=== PATIENT | female | born 1935 | race Caucasian/White ===

== ENCOUNTER 2023-06-22 16:07 | Inpatient (IN) ==
--- NOTE | 2023-06-22 16:44 | Emergency Department Note ---
Impression & Plan Acute alteration in mental status, Urinary tract infection, Fever ED Provider Note NAME: BETY PITTS AGE: 87 SEX: F : 1935 ARRIVES VIA: Walk-In INFORMANT: Patient, the patient's daughters ED PROVIDER(S): Valeriy Guy DO CHIEF COMPLAINT: Stroke alert HPI: The patient is an 87-year-old female who presented to the emergency department through triage with her daughters for an evaluation of strokelike symptoms. The patient was noted to have confusion. In triage she was leaning to the left and had a reported left-sided facial droop. She was made a stroke alert prior to my evaluation. The patient states she has no headaches. She did have an episode of emesis this morning. The family members noticed that she would shake and appeared to be shaking uncontrollably. There is no reported lower extremity swelling or pain. The patient's had no recent falls. The patient does take Coumadin. ROS: See above HPI for pertinent positives & negatives. A total of 10 systems reviewed and were otherwise negative. PAST MEDICAL HISTORY: See Below PAST SURGICAL HISTORY: See Below FAMILY HISTORY: See Below SOCIAL HISTORY: See Below HOME MEDICATIONS: See Below ALLERGIES: See Below VITALS: See Below PHYSICAL EXAMINATION: GENERAL: The patient is frail and somewhat anxious appearing. EYES: The conjunctivae are clear. The pupils are round and reactive. EARS, NOSE, MOUTH AND THROAT: The nose is without any evidence of any deformity. Mucous membranes are dry. NECK: The neck is nontender and supple. RESPIRATORY: Normal respiratory effort is noted there is no evidence of wheezing rhonchi or rales CARDIOVASCULAR: Irregular and tachycardic heart sounds were noted to auscultation. Systolic murmur was suggested. GASTROINTESTINAL: The abdomen is soft. Abdomen is nontender. MUSCULOSKELETAL/EXTREMITIES: There is no evidence of gross deformity full range of motion is noted in the hips and shoulders. SKIN: The skin is warm and dry. There is no significant pedal edema. NEUROLOGIC: Patient is awake and oriented to person place but not time. She does recognize her daughters. There is no facial droop. Speech was soft. There is no drift in the upper extremities. MEDICAL DECISION MAKING: The patient is an 87-year-old female who presented to the emergency department for an evaluation of altered mental status. The patient was made a stroke alert in triage. She did go through the stroke protocol. When she was brought back to the room she was found to be confused and appeared to be having rigors. The patient was found to be febrile. Further work-up was undertaken to determine the source of the patient's altered mental status and fever. Ultimately CT angiography of the brain and CT did not show any acute process. The patient does take Coumadin so I do not feel she would be a candidate for TNK. She has no large vessel occlusion. Urinalysis does appear to be consistent with a possible infection. She was treated with IV fluids and IV antibiotics. She was reevaluated multiple times. I discussed her condition with the on-call [facility] hospitalist. They have agreed to evaluate the patient in the emergency department for further management and disposition. Triage Nursing notes reviewed. Prior medical records reviewed Vital Signs: reviewed and remarkable for fever. Differential diagnosis: Infection, dehydration, metabolic abnormality, hypo/hyperglycemia, electrolyte disturbance, anemia, hypoxia, cardiac sources, intracerebral event, toxicologic, neurologic, as well as other pathologies. ER treatment provided: See below Diagnostics interpreted by me: ECG: EKG was obtained in the emergency department. My interpretation is atrial fibrillation with RVR at 138 bpm. No PVCs were noted. Left bundle branch block pattern was noted with nonspecific ST depressions throughout. This was compared to a tracing from April 20, 2018. The rate was increased otherwise no significant changes were noted. Cardiac Monitoring: An order was placed for continuous cardiac monitoring. The monitor shows a rate of 79 bpm with atrial fibrillation Laboratory studies: As stated above and show below. Imaging studies: See below. Radiographic imaging was reviewed by myself Consultation(s): I discussed this case with Dr. Stafford [facility] ED COURSE: Procedures: none Critical Care: I have personally spent greater than 45 minutes of critical care time in the direct management of this patient. This includes bedside care, interpretation of diagnostic studies, and testing, discussion with consultants, patient, and family members, and other required patient management activities. This 45 minutes is in excess of all separately billable procedures. Past Med/Surg History Medical History CAD (coronary artery disease) Cardiomyopathy Heart disease HOCM (hypertrophic obstructive cardiomyopathy) HTN (hypertension) Hyperlipidemia Implantable cardioverter-defibrillator (ICD) at end of battery life pt for ICD generator change; risks discussed; consents signed PAF (paroxysmal atrial fibrillation) Tricuspid regurgitation Family History Mother No problems noted. Social History Smoking Status: Former smoker Second Hand Exposure: No; Do You Dip or Chew Tobacco: No; Tobacco Cessation Education Requested by Patient: No Hx Alcohol Use: No Hx Substance Use: No Preferred Language: Czech Communication Ability: Effective Sr Account Executive Required: No Beliefs That Will Affect Care: None Current Living Situation: Alone Other Information That Helps Us Care for You: No Feels Safe at Home: Yes Safety Concerns: Feels Safe At This Time Assistive Devices: Glasses Allergies Allergies Allergy/AdvReac Type Severity Reaction Status Date / Time bee venom protein (honey bee) Allergy Intermediate Hives Verified 06/22/23 17:33 alendronate sodium AdvReac Intermediate Muscle Pain Verified 06/22/23 17:33 [From Fosamax] simvastatin AdvReac Intermediate Muscle Pain Verified 06/22/23 17:33 Home Meds Home Medications Medication Instructions Recorded Confirmed amiodarone 200 mg tablet 200 mg PO DAILY 05/02/20 06/22/23 levothyroxine 25 mcg capsule 25 mcg PO DAILYBB 05/02/20 06/22/23 omeprazole 20 mg capsule,delayed 20 mg PO DAILYBB 05/02/20 06/22/23 release betamethasone dipropionate 0.05 % 1 applic topical BID PRN 06/22/23 06/22/23 topical cream RASH/ITCHING cholecalciferol (vitamin D3) 25 1,000 unit PO QAM 06/22/23 06/22/23 mcg (1,000 unit) capsule (Vitamin D3) diltiazem HCl 120 mg capsule,24 120 mg PO DAILY 06/22/23 06/22/23 hr,extended release donepezil 5 mg tablet 5 mg PO QPM 06/22/23 06/22/23 furosemide 20 mg tablet 20 mg PO 3XWK 06/22/23 06/22/23 hydrocortisone 2.5 % topical cream 1 applic topical BID PRN RECTAL 06/22/23 06/22/23 IRRITATION loperamide 2 mg tablet (Imodium 1 mg PO DAILY PRN Diarrhea 06/22/23 06/22/23 A-D) metoprolol succinate 25 mg 25 mg PO DAILY 06/22/23 06/22/23 tablet,extended release 24 hr mirtazapine 15 mg tablet 15 mg PO HS 06/22/23 06/22/23 potassium chloride 10 mEq 10 meq PO DAILY 06/22/23 06/22/23 capsule,extended release warfarin 2 mg tablet See Rx Instructions .Route .COMPLEX 06/22/23 06/22/23 Results & Data (ED) Vital Signs Vital Signs - 24 hr 06/22/23 16:27 06/22/23 16:39 06/22/23 17:09 Temperature 36.5 C Temperature Source Oral Pulse Rate 111 H 115 H Pulse Rate [Apical] Pulse Rate from SpO2 Sensor Respiratory Rate 18 Blood Pressure 152/81 H Blood Pressure [Right Arm] Blood Pressure Mean 104 Blood Pressure Mean [Right Arm] Blood Pressure Position Sitting Pulse Oximetry 92 88 L Oxygen Delivery Method Room Air Room Air Oxygen Flow Rate 0 Sepsis Recent Fever Within 48 Hours No Sepsis New/Unexplained Change in Mental Status No Sepsis Action Taken by Nursing No Action Required Oxygen Flow Rate - Titration 2 Pulse Oximetry Post Tiitration 91 06/22/23 17:17 06/22/23 17:47 06/22/23 16:40 Temperature 38.4 C H Temperature Source Oral Pulse Rate 119 H Pulse Rate [Apical] Pulse Rate from SpO2 Sensor 125 H Respiratory Rate Blood Pressure Blood Pressure [Right Arm] Blood Pressure Mean Blood Pressure Mean [Right Arm] Blood Pressure Position Pulse Oximetry 93 91 Oxygen Delivery Method Room Air Oxygen Flow Rate Sepsis Recent Fever Within 48 Hours Sepsis New/Unexplained Change in Mental Status Sepsis Action Taken by Nursing Oxygen Flow Rate - Titration Pulse Oximetry Post Tiitration 06/22/23 16:46 06/22/23 16:46 06/22/23 17:04 Temperature Temperature Source Pulse Rate 120 H Pulse Rate [Apical] Pulse Rate from SpO2 Sensor 123 H Respiratory Rate Blood Pressure 159/96 H 170/80 H Blood Pressure [Right Arm] Blood Pressure Mean 117 110 Blood Pressure Mean [Right Arm] Blood Pressure Position Pulse Oximetry 92 Oxygen Delivery Method Oxygen Flow Rate Sepsis Recent Fever Within 48 Hours Sepsis New/Unexplained Change in Mental Status Sepsis Action Taken by Nursing Oxygen Flow Rate - Titration Pulse Oximetry Post Tiitration 06/22/23 17:04 06/22/23 17:10 06/22/23 17:16 Temperature Temperature Source Pulse Rate 118 H 120 H Pulse Rate [Apical] Pulse Rate from SpO2 Sensor 115 H 111 H 117 H Respiratory Rate 33 H 18 Blood Pressure Blood Pressure [Right Arm] Blood Pressure Mean Blood Pressure Mean [Right Arm] Blood Pressure Position Pulse Oximetry 89 L 92 92 Oxygen Delivery Method Oxygen Flow Rate Sepsis Recent Fever Within 48 Hours Sepsis New/Unexplained Change in Mental Status Sepsis Action Taken by Nursing Oxygen Flow Rate - Titration Pulse Oximetry Post Tiitration 06/22/23 17:16 06/22/23 17:20 06/22/23 17:30 Temperature Temperature Source Pulse Rate 110 H Pulse Rate [Apical] Pulse Rate from SpO2 Sensor 114 H Respiratory Rate 36 H Blood Pressure 146/123 H 131/77 Blood Pressure [Right Arm] Blood Pressure Mean 130 95 Blood Pressure Mean [Right Arm] Blood Pressure Position Pulse Oximetry 92 Oxygen Delivery Method Oxygen Flow Rate Sepsis Recent Fever Within 48 Hours Sepsis New/Unexplained Change in Mental Status Sepsis Action Taken by Nursing Oxygen Flow Rate - Titration Pulse Oximetry Post Tiitration 06/22/23 17:30 06/22/23 17:40 06/22/23 17:45 Temperature Temperature Source Pulse Rate 126 H 130 H 137 H Pulse Rate [Apical] Pulse Rate from SpO2 Sensor 123 H 135 H 123 H Respiratory Rate 20 38 H 31 H Blood Pressure Blood Pressure [Right Arm] Blood Pressure Mean Blood Pressure Mean [Right Arm] Blood Pressure Position Pulse Oximetry 92 93 91 Oxygen Delivery Method Oxygen Flow Rate Sepsis Recent Fever Within 48 Hours Sepsis New/Unexplained Change in Mental Status Sepsis Action Taken by Nursing Oxygen Flow Rate - Titration Pulse Oximetry Post Tiitration 06/22/23 17:45 06/22/23 18:28 06/22/23 18:13 Temperature Temperature Source Pulse Rate 88 Pulse Rate [Apical] 86 Pulse Rate from SpO2 Sensor Respiratory Rate 22 30 H Blood Pressure 157/82 H 167/90 H Blood Pressure [Right Arm] 167/90 H Blood Pressure Mean 107 115 Blood Pressure Mean [Right Arm] 115 Blood Pressure Position Pulse Oximetry 93 93 Oxygen Delivery Method Nasal Cannula Nasal Cannula Oxygen Flow Rate 2 2 Sepsis Recent Fever Within 48 Hours Sepsis New/Unexplained Change in Mental Status Sepsis Action Taken by Nursing Oxygen Flow Rate - Titration Pulse Oximetry Post Tiitration 06/22/23 18:30 Temperature Temperature Source Pulse Rate 86 Pulse Rate [Apical] Pulse Rate from SpO2 Sensor Respiratory Rate 33 H Blood Pressure Blood Pressure [Right Arm] Blood Pressure Mean Blood Pressure Mean [Right Arm] Blood Pressure Position Pulse Oximetry 93 Oxygen Delivery Method Nasal Cannula Oxygen Flow Rate 2 Sepsis Recent Fever Within 48 Hours Sepsis New/Unexplained Change in Mental Status Sepsis Action Taken by Nursing Oxygen Flow Rate - Titration Pulse Oximetry Post Tiitration Home Medications Current Medication List: was personally reviewed by me Laboratory Data Attestation: I reviewed the patient's lab results. 06/22/23 16:36 06/22/23 16:36 Lab Results 06/22/23 06/22/23 06/22/23 Range/Units 16:36 16:36 16:36 WBC 11.53 H (4.8-10.8) K/ul RBC 4.37 (4.20-5.40) M/uL Hgb 13.1 (12.0-16.0) g/dl POC Hgb (12.0-16.0) g/dl Hct 40.1 (37.0-47.0) % POC Hct (37-47) % MCV 91.8 (80.0-100.0) fL MCH 30.0 (25.0-34.0) pg MCHC 32.7 (32.0-36.0) g/dL RDW Std Deviation 54.1 H (36.4-46.3) fL RDW Coeff of Mikki 15.9 H (11.5-14.5) % Plt Count 206 (130-400) K/uL MPV 11.1 (9.4-12.4) fL PT 19.6 H (9.0-12.0) Seconds POC INR (0.9-1.1) INR 1.9 H (0.9-1.1) APTT 23.9 (21.0-31.0) Seconds PTT Ratio 0.8 POC Sodium (135-144) mmol/L Sodium 138 (136-145) mmol/L POC Potassium (3.3-5.0) mmol/L Potassium 4.8 (3.5-5.1) mmol/L POC Chloride (101-112) mmol/L Chloride 106 (98-107) mmol/L Carbon Dioxide 21 (21-32) mmol/L POC Total CO2 (24-31) mmol/L Anion Gap 11 (3-11) POC Anion Gap (16-25) mmol/L POC BUN (7-18) mg/dl BUN 36 H (6-23) mg/dl Creatinine 1.50 H (0.6-1.2) mg/dl POC Creatinine (0.6-1.3) mg/dl Est Cr Clr Drug Dosing 20.9 ml/min Est GFR ( Amer) 36.4 ml/min Est GFR (Non-Af Amer) 31.4 ml/min BUN/Creatinine Ratio 24.0 H (10-20) Glucose 165 H (70-99(Fasting)) mg/dl POC Glucose (other) (70-99) mg/dl Calcium 9.4 (8.6-10.3) mg/dl POC Ioniz Calcium True (1.12-1.32) mmol/l Magnesium 1.8 (1.7-2.4) mg/dl Total Bilirubin 0.8 (0.2-1.0) mg/dl AST 60 H (13-39) U/L ALT 34 (7-52) U/L Alkaline Phosphatase 105 H (34-104) U/L C-Reactive Protein 0.84 H (0-0.5) mg/dl Total Protein 7.7 (6.0-8.3) gm/dl Albumin 4.3 (3.4-5.0) gm/dl Globulin 3.4 (2.5-4.0) gm/dl Albumin/Globulin Ratio 1.3 (0.9-2) Procalcitonin (0-0.5) ng/ml Urine Color Urine Appearance (Clear) Urine pH (4.5-7.5) Ur Specific [place] (1.000-1.030) Urine Protein (Negative) Urine Glucose (UA) (Negative) Urine Ketones (Negative) Urine Blood (Negative) Urine Nitrite (Negative) Urine Bilirubin (Negative) Urine Urobilinogen (Negative) Ur Leukocyte Esterase (Negative) Urine WBC (Auto) (0-5) /hpf Urine RBC (Auto) (0-4) /hpf U Hyaline Cast (Auto) (0-5) /lpf U Epithel Cells (Auto) (0-5) /lpf Urine Bacteria (Auto) (Negative) Ur Renal Epithelial Cell Urine Yeast (None Prsent) Adenovirus (PCR) (NotDetected) B. pertussis DNA (PCR) (NotDetected) B.parapertussis DNA PCR (NotDetected) C. pneumoniae DNA (PCR) (NotDetected) Coronavirus OC43 (PCR) (NotDetected) Coronavirus HKU1 (PCR) (NotDetected) Coronavirus 229E (PCR) (NotDetected) SARS-CoV-2 (PCR) (NotDetected) Coronavirus NL63 (PCR) (NotDetected) Human Metapneumovir PCR (NotDetected) Influenza Type A (PCR) (NotDetected) Influenza Type B (PCR) (NotDetected) M. pneumoniae (PCR) (NotDetected) Parainfluenza 1 (PCR) (NotDetected) Parainfluenza 2 (PCR) (NotDetected) Parainfluenza 3 (PCR) (NotDetected) Parainfluenza 4 (PCR) (NotDetected) RSV (PCR) (NotDetected) Entero/Rhino (PCR) (NotDetected) 06/22/23 06/22/23 06/22/23 Range/Units 16:38 16:45 16:47 WBC (4.8-10.8) K/ul RBC (4.20-5.40) M/uL Hgb (12.0-16.0) g/dl POC Hgb 14.3 (12.0-16.0) g/dl Hct (37.0-47.0) % POC Hct 42 (37-47) % MCV (80.0-100.0) fL MCH (25.0-34.0) pg MCHC (32.0-36.0) g/dL RDW Std Deviation (36.4-46.3) fL RDW Coeff of Mikki (11.5-14.5) % Plt Count (130-400) K/uL MPV (9.4-12.4) fL PT (9.0-12.0) Seconds POC INR 2.0 H (0.9-1.1) INR (0.9-1.1) APTT (21.0-31.0) Seconds PTT Ratio POC Sodium 141 (135-144) mmol/L Sodium (136-145) mmol/L POC Potassium 4.9 (3.3-5.0) mmol/L Potassium (3.5-5.1) mmol/L POC Chloride 107 (101-112) mmol/L Chloride (98-107) mmol/L Carbon Dioxide (21-32) mmol/L POC Total CO2 21 L (24-31) mmol/L Anion Gap (3-11) POC Anion Gap 20.0 (16-25) mmol/L POC BUN 33 H (7-18) mg/dl BUN (6-23) mg/dl Creatinine (0.6-1.2) mg/dl POC Creatinine 1.4 H (0.6-1.3) mg/dl Est Cr Clr Drug Dosing ml/min Est GFR ( Amer) ml/min Est GFR (Non-Af Amer) ml/min BUN/Creatinine Ratio (10-20) Glucose (70-99(Fasting)) mg/dl POC Glucose (other) 168 H (70-99) mg/dl Calcium (8.6-10.3) mg/dl POC Ioniz Calcium True 1.11 L (1.12-1.32) mmol/l Magnesium (1.7-2.4) mg/dl Total Bilirubin (0.2-1.0) mg/dl AST (13-39) U/L ALT (7-52) U/L Alkaline Phosphatase (34-104) U/L C-Reactive Protein (0-0.5) mg/dl Total Protein (6.0-8.3) gm/dl Albumin (3.4-5.0) gm/dl Globulin (2.5-4.0) gm/dl Albumin/Globulin Ratio (0.9-2) Procalcitonin 0.15 (0-0.5) ng/ml Urine Color Urine Appearance (Clear) Urine pH (4.5-7.5) Ur Specific [place] (1.000-1.030) Urine Protein (Negative) Urine Glucose (UA) (Negative) Urine Ketones (Negative) Urine Blood (Negative) Urine Nitrite (Negative) Urine Bilirubin (Negative) Urine Urobilinogen (Negative) Ur Leukocyte Esterase (Negative) Urine WBC (Auto) (0-5) /hpf Urine RBC (Auto) (0-4) /hpf U Hyaline Cast (Auto) (0-5) /lpf U Epithel Cells (Auto) (0-5) /lpf Urine Bacteria (Auto) (Negative) Ur Renal Epithelial Cell Urine Yeast (None Prsent) Adenovirus (PCR) (NotDetected) B. pertussis DNA (PCR) (NotDetected) B.parapertussis DNA PCR (NotDetected) C. pneumoniae DNA (PCR) (NotDetected) Coronavirus OC43 (PCR) (NotDetected) Coronavirus HKU1 (PCR) (NotDetected) Coronavirus 229E (PCR) (NotDetected) SARS-CoV-2 (PCR) (NotDetected) Coronavirus NL63 (PCR) (NotDetected) Human Metapneumovir PCR (NotDetected) Influenza Type A (PCR) (NotDetected) Influenza Type B (PCR) (NotDetected) M. pneumoniae (PCR) (NotDetected) Parainfluenza 1 (PCR) (NotDetected) Parainfluenza 2 (PCR) (NotDetected) Parainfluenza 3 (PCR) (NotDetected) Parainfluenza 4 (PCR) (NotDetected) RSV (PCR) (NotDetected) Entero/Rhino (PCR) (NotDetected) 06/22/23 06/22/23 Range/Units 17:48 18:08 WBC (4.8-10.8) K/ul RBC (4.20-5.40) M/uL Hgb (12.0-16.0) g/dl POC Hgb (12.0-16.0) g/dl Hct (37.0-47.0) % POC Hct (37-47) % MCV (80.0-100.0) fL MCH (25.0-34.0) pg MCHC (32.0-36.0) g/dL RDW Std Deviation (36.4-46.3) fL RDW Coeff of Mikki (11.5-14.5) % Plt Count (130-400) K/uL MPV (9.4-12.4) fL PT (9.0-12.0) Seconds POC INR (0.9-1.1) INR (0.9-1.1) APTT (21.0-31.0) Seconds PTT Ratio POC Sodium (135-144) mmol/L Sodium (136-145) mmol/L POC Potassium (3.3-5.0) mmol/L Potassium (3.5-5.1) mmol/L POC Chloride (101-112) mmol/L Chloride (98-107) mmol/L Carbon Dioxide (21-32) mmol/L POC Total CO2 (24-31) mmol/L Anion Gap (3-11) POC Anion Gap (16-25) mmol/L POC BUN (7-18) mg/dl BUN (6-23) mg/dl Creatinine (0.6-1.2) mg/dl POC Creatinine (0.6-1.3) mg/dl Est Cr Clr Drug Dosing ml/min Est GFR ( Amer) ml/min Est GFR (Non-Af Amer) ml/min BUN/Creatinine Ratio (10-20) Glucose (70-99(Fasting)) mg/dl POC Glucose (other) (70-99) mg/dl Calcium (8.6-10.3) mg/dl POC Ioniz Calcium True (1.12-1.32) mmol/l Magnesium (1.7-2.4) mg/dl Total Bilirubin (0.2-1.0) mg/dl AST (13-39) U/L ALT (7-52) U/L Alkaline Phosphatase (34-104) U/L C-Reactive Protein (0-0.5) mg/dl Total Protein (6.0-8.3) gm/dl Albumin (3.4-5.0) gm/dl Globulin (2.5-4.0) gm/dl Albumin/Globulin Ratio (0.9-2) Procalcitonin (0-0.5) ng/ml Urine Color Yellow Urine Appearance Cloudy A (Clear) Urine pH 5.0 (4.5-7.5) Ur Specific [place] 1.034 H (1.000-1.030) Urine Protein Trace H (Negative) Urine Glucose (UA) Negative (Negative) Urine Ketones Negative (Negative) Urine Blood 2+ H (Negative) Urine Nitrite Positive A (Negative) Urine Bilirubin Negative (Negative) Urine Urobilinogen Negative (Negative) Ur Leukocyte Esterase Trace H (Negative) Urine WBC (Auto) 1-5 (0-5) /hpf Urine RBC (Auto) >30 H (0-4) /hpf U Hyaline Cast (Auto) 1-5 (0-5) /lpf U Epithel Cells (Auto) >30 H (0-5) /lpf Urine Bacteria (Auto) 2+ H (Negative) Ur Renal Epithelial Cell Not Reportable Urine Yeast Present A (None Prsent) Adenovirus (PCR) Not Detected (NotDetected) B. pertussis DNA (PCR) Not Detected (NotDetected) B.parapertussis DNA PCR Not Detected (NotDetected) C. pneumoniae DNA (PCR) Not Detected (NotDetected) Coronavirus OC43 (PCR) Not Detected (NotDetected) Coronavirus HKU1 (PCR) Not Detected (NotDetected) Coronavirus 229E (PCR) Not Detected (NotDetected) SARS-CoV-2 (PCR) Not Detected (NotDetected) Coronavirus NL63 (PCR) Not Detected (NotDetected) Human Metapneumovir PCR Not Detected (NotDetected) Influenza Type A (PCR) Not Detected (NotDetected) Influenza Type B (PCR) Not Detected (NotDetected) M. pneumoniae (PCR) Not Detected (NotDetected) Parainfluenza 1 (PCR) Not Detected (NotDetected) Parainfluenza 2 (PCR) Not Detected (NotDetected) Parainfluenza 3 (PCR) Not Detected (NotDetected) Parainfluenza 4 (PCR) Not Detected (NotDetected) RSV (PCR) Not Detected (NotDetected) Entero/Rhino (PCR) Not Detected (NotDetected) Administered Medications Discontinued Medications Piperacillin Sod/Tazobactam Sod (Zosyn) 4.5 gm in 120 mls @ 240 mls/hr IV NOW ONE Stop: 06/22/23 17:38 Last Infusion: 06/22/23 18:00 Dose: 0 mls/hr Documented By: Admin: 06/22/23 17:26 Dose: 240 mls/hr Documented By: CINDY Ioversol (Ioversol 350 Mg 125ml Prefilled Syringe) 119 ml IV ONCE ONE Stop: 06/22/23 16:55 Last Admin: 06/22/23 16:54 Dose: 119 ml Documented By: SHILOH Ondansetron HCl (Ondansetron Inj 2 Mg/Ml 2 Ml Vial) 4 mg IV NOW STA Stop: 06/22/23 17:18 Last Admin: 06/22/23 17:23 Dose: 4 mg Documented By: CINDY Imaging Data Attestation: I personally reviewed and interpreted this imaging study as jerson ws: My Impression: 1 view chest x-ray was obtained in the emergency department. My interpretation is no free air or definite infiltrate, final report below. CT of the brain was obtained in the emergency department. My interpretation is no intracranial hemorrhage or mass effect. Final report below. Radiologist's Impression: Chest X-Ray 06/22/23 16:33 XR chest 1V portable HISTORY: Stroke symptoms. COMPARISON: Chest 04/18/2018. FINDINGS: The patient's head obscures the left lung apex. No definite pneum othorax. No pleural effusions. The cardiac silhouette remains enlarged. There is a left-sided pacemaker/defibrillator again noted. No new focal lung consolidations to suggest a pneumonia. There is mild perihilar interstitial/vascular thickening. This suggests mild congestive change. No overt pulmonary edema. There are old, healed left-sided rib fractures. Mitral annulus calcifications are again noted. IMPRESSION: Cardiomegaly. There is mild central pulmonary vascular congestion without overt edema. ACT 112: Negative or not required by law. Electronically signed by: Johnny Adair M.D. 06/22/2023 5:[address] 06/22/23 16:[address] DOSE: HISTORY: Neuro deficit, acute, stroke suspected TECHNIQUE: Multiaxial CT images of the head were performed without the use of intravenous contrast. Automated exposure control was utilized for this study. A dose lowering technique was utilized adhering to the principles of ALARA. Comparison: Head CT 02/17/2014. Findings: The paranasal sinuses and mastoid air cells are clear. The calvarium and skull base are intact. There is no mass, hematoma, midline shift, acute infarct. White matter hypodensity is nonspecific but suggestive of microvascular ischemic change. The ventricles and sulci demonstrate mild age-related involutional changes. Impression: No acute intracranial abnormality. Atrophy and microvascular ischemic changes. ACT 112: Negative or not required by law. Electronically signed by: Johnny Adair M.D. 06/22/2023 5:27 PM Head CTA 06/22/23 16:34 HEAD & NECK CTA HISTORY: Confusion. TECHNIQUE: Multiaxial CT images of the head were performed following the intravenous administration of contrast to evaluate the major cerebral vessels. M ultiaxial CT images of the neck were also performed following the intravenous administration of contrast to evaluate the major cervical vessels. 3D/MIP images were also obtained. Sagittal and coronal reformats were reviewed. A dose lowering technique was utilized adhering to the principles of ALARA. COMPARISON: Head CT 06/22/2023. FINDINGS: There is no mass, hematoma, midline shift, or acute infarct. Visualized intra cranial internal carotid arteries, distal vertebral arteries, and basilar artery are widely patent. There is no significant stenosis, occlusion, or aneurysm seen within the bilateral ACAs, MCAs, or mattress stuffer. The major dural venous sinuses are patent. Moderate calcified plaque within the bilateral carotid siphons without significant stenosis. The aortic arch and proximal great vessels are widely patent. There is no significant stenosis, occlusion, or dissection identified within the bilateral common carotid, internal carotid, or vertebral arteries. A left-sided pacemaker is noted. Mild calcified plaque within the bilateral carotid bifurcations. IMPRESSION: 1. No significant stenosis, occlusion, or aneurysm within the [place]. 2. No significant stenosis, occlusion, or dissection identified within the [place] or vertebral arteries. ACT 112: Negative or not required by law. Electronically signed by: Johnny Adair M.D. 06/22/2023 5:32 PM Neck CTA 06/22/23 16:34 HEAD & NECK CTA HISTORY: Confusion. TECHNIQUE: Multiaxial CT images of the head were performed following the intravenous administration of contrast to evaluate the major cerebral vessels. Multiaxial CT images of the neck were also performed following the intravenous administration of contrast to evaluate the major cervical vessels. 3D/MIP images were also obtained. Sagittal and coronal reformats were reviewed. A dose loweri ng technique was utilized adhering to the principles of ALARA. COMPARISON: Head CT 06/22/2023. FINDINGS: There is no mass, hematoma, midline shift, or acute infarct. Visualized intracranial internal carotid arteries, distal vertebral arteries, and basilar artery are widely patent. There is no significant stenosis, occlusion, or aneurysm seen within the bilateral ACAs, MCAs, or mattress stuffer. The major dural venous sinuses are patent. Moderate calcified plaque within the bilateral carotid siphons without significant stenosis. The aortic arch and proximal great vessels are widely patent. There is no significant stenosis, occlusion, or dissection identified within the bilateral common carotid, internal carotid, or vertebral arteries. A left-sided pacemaker is noted. Mild calcified plaque within the bilateral carotid bifurcations. IMPRESSION: 1. No significant stenosis, occlusion, or aneurysm within the [place]. 2. No significant stenosis, occlusion, or dissection identified within the carotid or vertebral arteries. ACT 112: Negative or not required by law. Electronically signed by: Johnny Adair M.D. 06/22/2023 5:32 PM Abdomen/Pelvis CT 06/22/23 16:[address] WITH IV CONTRAST CT DOSE: 1551.82 mGy.cm HISTORY: Confusion. rigors TECHNIQUE: Multiaxial CT images of the abdomen and pelvis were performed following the use of intravenous contrast. A dose lowering technique was utilized adhering to the principles of ALARA. COMPARISON STUDY: None. FINDINGS: Left basilar linear densities consistent with subsegmental a telectasis. The heart is enlarged. Mild pulmonary vascular congestion is noted at the lung bases. No pneumothorax. Pacemaker wires are partially visualized. There is a moderate hiatus hernia . No pneumoperitoneum. No pneumatosis. No acute fractures identified. Dense mitral annulus calcifications are present. The main portal vein is patent. The liver, gallbladder, pancreas, and adrenal glands are unremarkable. Renal sinus calcifications are likely vascular. The kidneys enhance normally. No hydronephrosis. A few small peripheral wedge-shaped hypodensities within the spleen. These favor small splenic infarcts. No retroperitoneal lymphadenopathy. Severe calcified plaque within the normal caliber abdominal aorta and iliac/femoral arteries the bladder is unremarkable. No pelvic free fluid. The uterus is surgically absent. Colonic diverticulosis. No evidence for acute diverticulitis. Fluid-filled loops of large and small bowel. No dilated loops of bowel to suggest obstruction. Mild circumferential thickening of the colon. The small bowel loops appear to be slightly thickened. Findings suggest a nonspecific enterocolitis. IMPRESSION: 1. Mildly thickened loops of large and small bowel seen throughout the abdomen. This is consistent with a nonspecific enterocolitis. 2. A few small peripheral hypodensities within the spleen. 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 There are 3. No evidence for bowel obstruction. 4. Moderate hiatus hernia. 5. Cardiomegaly with mild congestive change. 6. Colonic diverticulosis. No evidence for acute diverticulitis. ACT 112: Negative or not required by law. Electronically signed by: Johnny Adair M.D. 06/22/2023 5:39 PM Discharge Plan Visit Data Chief Complaint: Confusion Stated Complaint: DIARRHEA, VOMITTING, CHILLS ED Provider: Valeriy uGy Discharge Problem: Acute alteration in mental status, Urinary tract infection, Fever Patient Disposition: Admitted As Inpatient Discharge Instructions Interventions: ED Discharge Assessment Last Done: 06/22/23 19:59
[2023-06-22 16:52] LABS: Hematocrit (blood only) 40.1 % (37.0-47.0); Hemoglobin 13.1 g/dl (12.0-16.0); Mean Corpuscular Hgb Conc 32.7 g/dL (32.0-36.0); Mean Corpuscular Volume 91.8 fL (80.0-100.0); Mean Platelet Volume 11.1 fL (9.4-12.4); Platelet Count 206 K/uL (130-400); RDW Coefficient of Variation 15.9 % (11.5-14.5); RDW Standard Deviation 54.1 fL (36.4-46.3); Red Blood Count 4.37 M/uL (4.20-5.40); White Blood Count 11.53 K/ul (4.8-10.8)
[2023-06-22] MEDS ORDERED: IOVERSOL 350 MG 125mL Prefilled Syringe IV ONE (16:54)
[2023-06-22 17:01] LABS: iSTAT Creatinine 1.4 mg/dl (0.6-1.3); iSTAT Hemoglobin 14.3 g/dl (12.0-16.0); iSTAT Ionized Calcium 1.11 mmol/l (1.12-1.32); iSTAT Potassium 4.9 mmol/L (3.3-5.0)
[2023-06-22] MEDS ORDERED: PIPERACILLIN/TAZOBACTAM 4.5 GM/120 ML BAG IV ONE (17:09)
[2023-06-22 17:10] LABS: Albumin Globulin Ratio 1.3 (0.9-2); Albumin Level 4.3 gm/dl (3.4-5.0); Bilirubin,Total 0.8 mg/dl (0.2-1.0); C Reactive Protein 0.84 mg/dl (0-0.5); Calcium 9.4 mg/dl (8.6-10.3); Creatinine Clr Calc Pharmacy 20.9 ml/min; Est GFR (African American) 36.4 ml/min; Est GFR (Non-African American) 31.4 ml/min; Globulin 3.4 gm/dl (2.5-4.0); Magnesium 1.8 mg/dl (1.7-2.4); Potassium 4.8 mmol/L (3.5-5.1); Total Protein 7.7 gm/dl (6.0-8.3)
--- NOTE | 2023-06-22 17:14 | XRay Report ---
XR chest 1V portable HISTORY: Stroke symptoms. COMPARISON: Chest 04/18/2018. FINDINGS: The patient's head obscures the left lung apex. No definite pneumothorax. No pleural effusi ons. The cardiac silhouette remains enlarged. There is a left-sided pacemaker/defibrillator again not ed. No new focal lung consolidations to suggest a pneumonia. There is mild perihilar interstitial/vas cular thickening. This suggests mild congestive change. No overt pulmonary edema. There are old, heal ed left-sided rib fractures. Mitral annulus calcifications are again noted. IMPRESSION: Cardiomegaly. There is mild central pulmonary vascular congestion without overt edema. ACT 112: Negative or not required by law. Electronically signed by: Johnny Adair M.D. 06/22/2023 5:12 PM
[2023-06-22] MEDS ORDERED: ONDANSETRON INJ 2 MG/ML 2 ML VIAL IV STA (17:17)
[2023-06-22 17:29] LABS: INR 1.9 (0.9-1.1); Partial Thromboplastin Ratio 0.8; Partial Thromboplastin Time 23.9 Seconds (21.0-31.0); Prothrombin Time 19.6 Seconds (9.0-12.0)
--- NOTE | 2023-06-22 17:29 | CT Scan Report ---
HEAD CT NONCONTRAST CT DOSE: HISTORY: Neuro deficit, acute, stroke suspected TECHNIQUE: Multiaxial CT images of the head were performed without the use of intravenous contrast. A utomated exposure control was utilized for this study. A dose lowering technique was utilized adheri ng to the principles of ALARA. Comparison: Head CT 02/17/2014. Findings: The paranasal sinuses and mastoid air cells are clear. The calvarium and skull base are int act. There is no mass, hematoma, midline shift, acute infarct. White matter hypodensity is nonspecifi c but suggestive of microvascular ischemic change. The ventricles and sulci demonstrate mild age-rela meenu involutional changes. Impression: No acute intracranial abnormality. Atrophy and microvascular ischemic changes. ACT 112: Negative or not required by law. Electronically signed by: Johnny Adair M.D. 06/22/2023 5:27 PM
--- NOTE | 2023-06-22 17:34 | CT Scan Report ---
HEAD & NECK CTA HISTORY: Confusion. TECHNIQUE: Multiaxial CT images of the head were performed following the intravenous administration o f contrast to evaluate the major cerebral vessels. Multiaxial CT images of the neck were also perform ed following the intravenous administration of contrast to evaluate the major cervical vessels. 3D/NV P images were also obtained. Sagittal and coronal reformats were reviewed. A dose lowering technique was utilized adhering to the principles of ALARA. COMPARISON: Head CT 06/22/2023. FINDINGS: There is no mass, hematoma, midline shift, or acute infarct. Visualized intracranial internal carotid arteries, distal vertebral arteries, and basilar artery are widely patent. There is no significant s tenosis, occlusion, or aneurysm seen within the bilateral ACAs, MCAs, or pie filler. The major dural venous sinuses are patent. Moderate calcified plaque within the bilateral carotid siphons without significa nt stenosis. The aortic arch and proximal great vessels are widely patent. There is no significant stenosis, occ lusion, or dissection identified within the bilateral common carotid, internal carotid, or vertebral arteries. A left-sided pacemaker is noted. Mild calcified plaque within the bilateral carotid bifurca tions. IMPRESSION: 1. No significant stenosis, occlusion, or aneurysm within the [place]. 2. No significant stenosis, occlusion, or dissection identified within the carotid or vertebral arter ies. ACT 112: Negative or not required by law. Electronically signed by: Johnny Adair M.D. 06/22/2023 5:32 PM
--- NOTE | 2023-06-22 17:34 | CT Scan Report ---
HEAD & NECK CTA HISTORY: Confusion. TECHNIQUE: Multiaxial CT images of the head were performed following the intravenous administration o f contrast to evaluate the major cerebral vessels. Multiaxial CT images of the neck were also perform ed following the intravenous administration of contrast to evaluate the major cervical vessels. 3D/OR P images were also obtained. Sagittal and coronal reformats were reviewed. A dose lowering technique was utilized adhering to the principles of ALARA. COMPARISON: Head CT 06/22/2023. FINDINGS: There is no mass, hematoma, midline shift, or acute infarct. Visualized intracranial internal carotid arteries, distal vertebral arteries, and basilar artery are widely patent. There is no significant s tenosis, occlusion, or aneurysm seen within the bilateral ACAs, MCAs, or communications tech. The major dural venous sinuses are patent. Moderate calcified plaque within the bilateral carotid siphons without significa nt stenosis. The aortic arch and proximal great vessels are widely patent. There is no significant stenosis, occ lusion, or dissection identified within the bilateral common carotid, internal carotid, or vertebral arteries. A left-sided pacemaker is noted. Mild calcified plaque within the bilateral carotid bifurca tions. IMPRESSION: 1. No significant stenosis, occlusion, or aneurysm within the [place]. 2. No significant stenosis, occlusion, or dissection identified within the carotid or vertebral arter ies. ACT 112: Negative or not required by law. Electronically signed by: Johnny Adair M.D. 06/22/2023 5:32 PM
--- NOTE | 2023-06-22 17:41 | CT Scan Report ---
ABDOMEN AND PELVIS CT WITH IV CONTRAST CT DOSE: 1551.82 mGy.cm HISTORY: Confusion. rigors TECHNIQUE: Multiaxial CT images of the abdomen and pelvis were performed following the use of intrave nous contrast. A dose lowering technique was utilized adhering to the principles of ALARA. COMPARISON STUDY: None. FINDINGS: Left basilar linear densities consistent with subsegmental atelectasis. The heart is enlarg ed. Mild pulmonary vascular congestion is noted at the lung bases. No pneumothorax. Pacemaker wires a re partially visualized. There is a moderate hiatus hernia . No pneumoperitoneum. No pneumatosis. No acute fractures identified. Dense mitral annulus calcifications are present. The main portal vein is patent. The liver, gallbladder, pancreas, and adrenal glands are unremarkable. Renal sinus calcificat ions are likely vascular. The kidneys enhance normally. No hydronephrosis. A few small peripheral wed ge-shaped hypodensities within the spleen. These favor small splenic infarcts. No retroperitoneal lym phadenopathy. Severe calcified plaque within the normal caliber abdominal aorta and iliac/femoral art eries the bladder is unremarkable. No pelvic free fluid. The uterus is surgically absent. Colonic div erticulosis. No evidence for acute diverticulitis. Fluid-filled loops of large and small bowel. No di lated loops of bowel to suggest obstruction. Mild circumferential thickening of the colon. The small bowel loops appear to be slightly thickened. Findings suggest a nonspecific enterocolitis. IMPRESSION: 1. Mildly thickened loops of large and small bowel seen throughout the abdomen. This is consistent wi th a nonspecific enterocolitis. 2. A few small peripheral hypodensities within the spleen. This likely represents small splenic infar cts. There are 3. No evidence for bowel obstruction. 4. Moderate hiatus hernia. 5. Cardiomegaly with mild congestive change. 6. Colonic diverticulosis. No evidence for acute diverticulitis. ACT 112: Negative or not required by law. Electronically signed by: Johnny Adair M.D. 06/22/2023 5:39 PM
[2023-06-22 17:57] LABS: Appearance Urine Cloudy (Clear); Bacteria Urine Automated 2+ (Negative); Bilirubin Urine Negative (Negative); Blood Urine 2+ (Negative); Color Urine Yellow; Epithelial Cell Urine Auto >30 /lpf (0-5); Glucose Urine UA Negative (Negative); Ketones Urine Negative (Negative); Leukocyte Esterase Urine Trace (Negative); Nitrite Urine Positive (Negative); Protein Urine Trace (Negative); RBC Urine Automated >30 /hpf (0-4); Specific Gravity Urine 1.034 (1.000-1.030); Urobilinogen Urine Negative (Negative)
[2023-06-22 19:07] LABS: Adenovirus PCR Not Detected (NotDetected); Bordetella parapertussis PCR Not Detected (NotDetected); Bordetella pertussis PCR Not Detected (NotDetected); Chlamydia pneumoniae PCR Not Detected (NotDetected); Coronavirus 229E PCR Not Detected (NotDetected); Coronavirus CoV-2 (COVID19)PCR Not Detected (NotDetected); Coronavirus HKU1 PCR Not Detected (NotDetected); Coronavirus NL63 PCR Not Detected (NotDetected); Coronavirus OC43PCR Not Detected (NotDetected); Human Metapneumovirus PCR Not Detected (NotDetected); Influenza A PCR Not Detected (NotDetected); Influenza B PCR Not Detected (NotDetected); Mycoplasma pneumoniae PCR Not Detected (NotDetected); Parainfluenza Virus 1 PCR Not Detected (NotDetected); Parainfluenza Virus 2 PCR Not Detected (NotDetected); Parainfluenza Virus 3 PCR Not Detected (NotDetected); Parainfluenza Virus 4 PCR Not Detected (NotDetected); Respiratory Syncytial VirusPCR Not Detected (NotDetected); Rhinovirus/Enterovirus PCR Not Detected (NotDetected)
--- NOTE | 2023-06-22 19:29 | History & Physical Report ---
Date of Service June 22, 2023 Assessment & Plan (1) Sepsis: (2) AMS (altered mental status): (3) Complicated UTI (urinary tract infection): (4) Hypoxia: (5) HTN (hypertension): (6) HOCM (hypertrophic obstructive cardiomyopathy): (7) PAF (paroxysmal atrial fibrillation): (8) Hyperlipidemia: Plan Pt is an 87yoF with PMhx significant for PAF, NSVT, HOCM with dual chamber AICD in place, hypothyroidism, Hx of pleural effusions, mild dementia, GERD, malnutrition admitted with altered mental status in the setting of colitis and concerns for stroke. 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 Noted a change in her mental status before being brought in, after she stated she was not feeling well and had episodes of emesis with rigors. Stroke alert was called in the ED after she was noted to be leaning to the left side with left facial droop. Daughters state that they did not notice the changes, do not believe the stroke alert was needed as they state she appears to be at baseline physically. [facility] chart review notes pt was started on Donepezil 5mg in February for mild vascular dementia. Pt AAOx1, to self only WBC elevated, tachypneic, noted fever with UA suggestive of infection. Urine Cx pending. Blood Cx x2 pending, biofire pending Head CT, CTA, neck CTA -with no acute changes. Pt with pacemaker- consider MRI brain if pacemaker compatible. CT abd/pelvis noted colitis, splenic infarcts and a hiatal hernia. IV Zosyn ordered for empiric coverage of both UTI and colitis Telemetry monitoring. 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 Follows with Coumadin clinic, last seen on 06/20 and INR noted to be 1.9. No warfarin dose changes made. Trend INR with AM lab- and adjust warfarin dose as needed with goal 2-3 Malnutrition On remeron, started by pcp CKD Stable As noted above, holding off on gentle hydration, given pt's cardiac Hx- continue to monitor for need for it Hypothyroidism Continue levothyroxine GERD Continue home ppi CODE STATUS: Full code after discussion with daughters in the room Diet: Passed dysphagia screen-HH, easy to chew DVT prophylaxis: On coumadin Dispo: PCU/tele History of Present Illness Chief Complaint: Confusion Primary Care Provider: Omar Milotn MD Pt is an 87yoF with PMhx significant for PAF, NSVT, HOCM with dual chamber AICD in place, hypothyroidism, Hx of pleural effusions, mild dementia, GERD, malnutrition admitted with altered mental status in the setting of colitis and concerns for stroke. Two daughters present in the room. They note that she said she was not feeling well earlier in the day, then threw up and went upstairs. She then stated that she felt better and was able to go to a birthday green party later that day. However, she stated while there that she was not feeling well anymore and they left. Daughter notes that once they got home she had rigors and noted confusion with episodes of emesis once more. They brought her in for further evaluation. They note that at baseline she is able to ambulate without assistance. 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 While in ED triage it was thought that the pt was having a stroke due to her leaning to the left and perceived left facial droop. Daughters state that they did not notice these symptoms and do not believe she had a stroke as she appears at baseline to them. Allergies Allergy/AdvReac Type Severity Reaction Status Date / Time bee venom protein (honey bee) Allergy Intermediate Hives Verified 06/22/23 17:33 alendronate sodium AdvReac Intermediate Muscle Pain Verified 06/22/23 17:33 [From Fosamax] simvastatin AdvReac Intermediate Muscle Pain Verified 06/22/23 17:33 Home Medications Medication Instructions Recorded Confirmed Type amiodarone 200 mg tablet 200 mg PO DAILY 05/02/20 06/22/23 History levothyroxine 25 mcg capsule 25 mcg PO DAILYBB 05/02/20 06/22/23 History omeprazole 20 mg capsule,delayed 20 mg PO DAILYBB 05/02/20 06/22/23 History release betamethasone dipropionate 0.05 % 1 applic topical BID PRN 06/22/23 06/22/23 History topical cream RASH/ITCHING cholecalciferol (vitamin D3) 25 1,000 unit PO QAM 06/22/23 06/22/23 History mcg (1,000 unit) capsule (Vitamin D3) diltiazem HCl 120 mg capsule,24 120 mg PO DAILY 06/22/23 06/22/23 History hr,extended release donepezil 5 mg tablet 5 mg PO QPM 06/22/23 06/22/23 History furosemide 20 mg tablet 20 mg PO 3XWK 06/22/23 06/22/23 History hydrocortisone 2.5 % topical cream 1 applic topical BID PRN RECTAL 06/22/23 06/22/23 History IRRITATION loperamide 2 mg tablet (Imodium 1 mg PO DAILY PRN Diarrhea 06/22/23 06/22/23 History A-D) metoprolol succinate 25 mg 25 mg PO DAILY 06/22/23 06/22/23 History tablet,extended release 24 hr mirtazapine 15 mg tablet 15 mg PO HS 06/22/23 06/22/23 History potassium chloride 10 mEq 10 meq PO DAILY 06/22/23 06/22/23 History capsule,extended release warfarin 2 mg tablet See Rx Instructions .Route .COMPLEX 06/22/23 06/22/23 History Past Med/Surg History Medical History CAD (coronary artery disease) Cardiomyopathy Heart disease HOCM (hypertrophic obstructive cardiomyopathy) HTN (hypertension) Hyperlipidemia Implantable cardioverter-defibrillator (ICD) at end of battery life pt for ICD generator change; risks discussed; consents signed PAF (paroxysmal atrial fibrillation) Tricuspid regurgitation Family History Mother No problems noted. Social History Smoking Status: Former smoker Second Hand Exposure: No; Do You Dip or Chew Tobacco: No; Tobacco Cessation Education Requested by Patient: No Hx Alcohol Use: No Hx Substance Use: No Preferred Language: Upper Sorbian Communication Ability: Effective Sleeve Baster Required: No Beliefs That Will Affect Care: None Current Living Situation: Alone Other Information That Helps Us Care for You: No Feels Safe at Home: Yes Safety Concerns: Feels Safe At This Time Assistive Devices: Glasses Review of Systems Review of Systems: All systems reviewed & are unremarkable except as noted in HPI & below Physical Exam Physical Exam: General: Alert, orientedx1. No acute distress, frail Skin:Appears pale Psych: AAOx1 Neuro: difficulty moving HEENT: NC/AT Chest: pacemaker visible through skin CV: irregular rhythm Resp:no increased effort of breathing Abdomen: Soft, diffusely tender Extremities: No edema in lower extremities bilaterally. Results & Data Results & Data Vital Signs (Past 12 Hours) Vital Signs Temp Pulse Pulse Resp BP BP Pulse Ox 06/22/23 18:13 88 30 H 167/90 H 93 06/22/23 18:28 86 22 167/90 H 93 06/22/23 17:45 157/82 H 06/22/23 17:45 137 H 31 H 91 06/22/23 17:40 130 H 38 H 93 06/22/23 17:30 126 H 20 92 06/22/23 17:30 131/77 06/22/23 17:20 110 H 36 H 92 06/22/23 17:16 146/123 H 06/22/23 17:16 120 H 18 92 06/22/23 17:10 118 H 33 H 92 06/22/23 17:04 89 L 06/22/23 17:04 170/80 H 06/22/23 16:46 120 H 92 06/22/23 16:46 159/96 H 06/22/23 16:40 119 H 91 06/22/23 17:47 93 06/22/23 17:17 38.4 C H 06/22/23 17:09 88 L 06/22/23 16:39 115 H 06/22/23 16:27 36.5 C 111 H 18 152/81 H 92 O2 Del Method O2 Flow Rate 06/22/23 18:13 Nasal Cannula 2 06/22/23 18:28 Nasal Cannula 2 06/22/23 17:45 06/22/23 17:45 06/22/23 17:40 06/22/23 17:30 06/22/23 17:30 06/22/23 17:20 06/22/23 17:16 06/22/23 17:16 06/22/23 17:10 06/22/23 17:04 06/22/23 17:04 06/22/23 16:46 06/22/23 16:46 06/22/23 16:40 06/22/23 17:47 Room Air 06/22/23 17:17 06/22/23 17:09 Room Air 0 06/22/23 16:39 06/22/23 16:27 Room Air Diagnostic Findings Chest X-Ray 06/22/23 16:33 XR chest 1V portable HISTORY: Stroke symptoms. COMPARISON: Chest 04/18/2018. FINDINGS: The patient's head obscures the left lung apex. No definite pneumothorax. No pleural effusions. The cardiac silhouette remains enlarged. There is a left-sided pacemaker/defibrillator again noted. No new focal lung consolidations to suggest a pneumonia. There is mild perihilar interstitial/vascular thickening. This suggests mild congestive change. No overt pulmonary edema. There are old, healed left-sided rib fractures. Mitral annulus calcifications are again noted. IMPRESSION: Cardiomegaly. There is mild central pulmonary vascular congestion without overt edema. ACT 112: Negative or not required by law. Electronically signed by: Johnny Adair M.D. 06/22/2023 5:[address] 06/22/23 16:[address] DOSE: HISTORY: Neuro deficit, acute, stroke suspected TECHNIQUE: Multiaxial CT images of the head were performed without the use of intravenous contrast. Automated exposure control was utilized for this study. A dose lowering technique was utilized adhering to the principles of ALARA. Comparison: Head CT 02/17/2014. Findings: The paranasal sinuses and mastoid air cells are clear. The calvarium and skull base are intact. There is no mass, hematoma, midline shift, acute infarct. White matter hypodensity is nonspecific but suggestive of microvascular ischemic change. The ventricles and sulci demonstrate mild age-related involutional changes. Impression: No acute intracranial abnormality. Atrophy and microvascular ischemic changes. ACT 112: Negative or not required by law. Electronically signed by: Johnny Adair M.D. 06/22/2023 5:27 PM Head CTA 06/22/23 16:34 HEAD & NECK CTA HISTORY: Confusion. TECHNIQUE: Multiaxial CT images of the head were performed following the intravenous administration of contrast to evaluate the major cerebral vessels. Multiaxial CT images of the neck were also performed following the intravenous administration of contrast to evaluate the major cervical vessels. 3D/MIP images were also obtained. Sagittal and coronal reformats were reviewed. A dose lowering technique was utilized adhering to the principles of ALARA. COMPARISON: Head CT 06/22/2023. FINDINGS: There is no mass, hematoma, midline shift, or acute infarct. Visualized intracranial internal carotid arteries, distal vertebral arteries, and basilar artery are widely patent. There is no significant stenosis, occlusion, or aneurysm seen within the bilateral ACAs, MCAs, or assistant professor of music. The major dural venous sinuses are patent. Moderate calcified plaque within the bilateral carotid siphons without significant stenosis. The aortic arch and proximal great vessels are widely patent. There is no significant stenosis, occlusion, or dissection identified within the bilateral common carotid, internal carotid, or vertebral arteries. A left-sided pacemaker is noted. Mild calcified plaque within the bilateral carotid bifurcations. IMPRESSION: 1. No significant stenosis, occlusion, or aneurysm within the elem of [employer]. 2. No significant stenosis, occlusion, or dissection identified within the carotid or vertebral arteries. ACT 112: Negative or not required by law. Electronically signed by: Johnny Adair M.D. 06/22/2023 5:32 PM Neck CTA 06/22/23 16:34 HEAD & NECK CTA HISTORY: Confusion. TECHNIQUE: Multiaxial CT images of the head were performed following the intravenous administration of contrast to evaluate the major cerebral vessels. Multiaxial CT images of the neck were also performed following the intravenous administration of contrast to evaluate the major cervical vessels. 3D/MIP images were also obtained. Sagittal and coronal reformats were reviewed. A dose lowering technique was utilized adhering to the principles of ALARA. COMPARISON: Head CT 06/22/2023. FINDINGS: There is no mass, hematoma, midline shift, or acute infarct. Visualized intracranial internal carotid arteries, distal vertebral arteries, and basilar artery are widely patent. There is no significant stenosis, occlusion, or aneurysm seen within the bilateral ACAs, MCAs, or assistant professor of music. The major dural venous sinuses are patent. Moderate calcified plaque within the bilateral carotid siphons without significant stenosis. The aortic arch and proximal great vessels are widely patent. There is no significant stenosis, occlusion, or dissection identified within the bilateral common carotid, internal carotid, or vertebral arteries. A left-sided pacemaker is noted. Mild calcified plaque within the bilateral carotid bifurcations. IMPRESSION: 1. No significant stenosis, occlusion, or aneurysm within the elem of [employer]. 2. No significant stenosis, occlusion, or dissection identified within the carotid or vertebral arteries. ACT 112: Negative or not required by law. Electronically signed by: Johnny Adair M.D. 06/22/2023 5:32 PM Abdomen/Pelvis CT 06/22/23 16:[address] WITH IV CONTRAST CT DOSE: 1551.82 mGy.cm HISTORY: Confusion. rigors TECHNIQUE: Multiaxial CT images of the abdomen and pelvis were performed following the use of intravenous contrast. A dose lowering technique was utilized adhering to the principles of ALARA. COMPARISON STUDY: None. FINDINGS: Left basilar linear densities consistent with subsegmental atelectasis. The heart is enlarged. Mild pulmonary vascular congestion is noted at the lung bases. No pneumothorax. Pacemaker wires are partially visualized. There is a moderate hiatus hernia . No pneumoperitoneum. No pneumatosis. No acute fractures identified. Dense mitral annulus calcifications are present. The main portal vein is patent. The liver, gallbladder, pancreas, and adrenal glands are unremarkable. Renal sinus calcifications are likely vascular. The kidneys enhance normally. No hydronephrosis. A few small peripheral wedge-shaped hypodensities within the spleen. These favor small splenic infarcts. No retroperitoneal lymphadenopathy. Severe calcified plaque within the normal caliber abdominal aorta and iliac/femoral arteries the bladder is unremarkable. No pelvic free fluid. The uterus is surgically absent. Colonic diverticulosis. No evidence for acute diverticulitis. Fluid-filled loops of large and small bowel. No dilated loops of bowel to suggest obstruction. Mild circumferential thickening of the colon. The small bowel loops appear to be slightly thickened. Findings suggest a nonspecific enterocolitis. IMPRESSION: 1. Mildly thickened loops of large and small bowel seen throughout the abdomen. This is consistent with a nonspecific enterocolitis. 2. A few small peripheral hypodensities within the spleen. 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 There are 3. No evidence for bowel obstruction. 4. Moderate hiatus hernia. 5. Cardiomegaly with mild congestive change. 6. Colonic diverticulosis. No evidence for acute diverticulitis. ACT 112: Negative or not required by law. Electronically signed by: Johnny Adair M.D. 06/22/2023 5:39 PM Code Status & VTE Plan VTE Prophylaxis Plan VTE Prophylaxis will be ordered: Yes
[2023-06-22] MEDS ORDERED: ACETAMINOPHEN 325 MG TAB PO PRN (20:30)
[2023-06-22] MEDS ORDERED: POLYETHYLENE (MIRALAX) 17 GM PACK PO PRN (20:30)
[2023-06-22] MEDS ORDERED: ONDANSETRON 4 MG OD TAB PO PRN (20:30)
[2023-06-22] MEDS ORDERED: LOPERAMIDE HCL 2 MG CAP PO PRN (20:55)
[2023-06-22] MEDS ORDERED: metroNIDAZOLE 500 MG/100 ML BAG IV STA (21:16)
[2023-06-22] MEDS: ALBUMIN 25% 25 GM/100 ML VIAL IV SCH (21:57)
--- NOTE | 2023-06-22 22:01 | Communication Note ---
Date of Service: June 22, 2023 Patient noted to be febrile, lactic acid noted to be 2.9 as per RN. AP Severe sepsis SIRS plus lactic acidosis Secondary to enterocolitis Rule out C. difficile Follow lactic acid response to IV albumin (preferred over crystalloid given mild pulmonary congestion on CXR) Stool C. difficile, Flagyl 1 dose given sepsis criteria (oral vancomycin if C. difficile positive)
[2023-06-22] MEDS: DONEPEZIL HCL 5 MG TAB PO SCH (22:06)
[2023-06-22] MEDS: MIRTAZAPINE TAB 15 MG TAB PO SCH (22:07)
[2023-06-22] MEDS ORDERED: FLUCONAZOLE 50 MG TAB PO ONE (23:30)
[2023-06-23] MEDS: PIPERACILLIN/TAZOBACTAM 4.5 GM in DEXTROSE 5% 100 ML IV SCH ×3 (00:01→20:20)
[2023-06-23] MEDS ORDERED: ALBUMIN 25% 25 GM/100 ML VIAL IV ONE (00:11)
[2023-06-23 02:19] LABS: A calco-baum cmplx NotReported Not Detected (NotDetected); Bact fragilis Not Reported Not Detected (NotDetected); C auris Not Reported Not Detected (NotDetected); Calbicans Not Reported Not Detected (NotDetected); Candida glabrata Not Reported Not Detected (NotDetected); Candida krusei Not Reported Not Detected (NotDetected); Cneoformans/gatti Not Reported Not Detected (NotDetected); Cparapsilosis Not Reported Not Detected (NotDetected); Ctropicalis Not Reported Not Detected (NotDetected); E cloacae compx Not Reported Not Detected (NotDetected); Efaecalis Not Reported Not Detected (NotDetected); Efaecium Not Reported Not Detected (NotDetected); Enterobacterales Not Reported Not Detected (NotDetected); Escherichia coli Not Reported Not Detected (NotDetected); H influenzae Not Reported Not Detected (NotDetected); K aerogenes Not Reported Not Detected (NotDetected); Koxytoca Not Reported Not Detected (NotDetected); Kpneumoniae grp Not Reported Not Detected (NotDetected); Lmonocyt Not Reported Not Detected (NotDetected); N meningitidis Not Reported Not Detected (NotDetected); P aeruginosa Not Reported Not Detected (NotDetected); Proteus spp Not Reported Not Detected (NotDetected); Salmonella spp Not Reported Not Detected (NotDetected); Smarcescens Not Reported Not Detected (NotDetected); Staph lugdunensis Not Reported Not Detected (NotDetected); Staph spp. Not Reported DETECTED (NotDetected); Staphaureus Not Reported DETECTED (NotDetected); Staphepi Not Reported Not Detected (NotDetected); Stenmaltophilia Not Reported Not Detected (NotDetected); Strep agal(GrpB) Not Reported Not Detected (NotDetected); Strep pneum Not Reported Not Detected (NotDetected); Strep pyog (GrpA) Not Reported Not Detected (NotDetected); Strep spp Not Reported Not Detected (NotDetected)
[2023-06-23 02:36] LABS: Staphylococcus spp. DETECTED (NotDetected); mecAC+MREJ Resistant Gene MRSA DETECTED (NotDetected)
[2023-06-23 04:56] LABS: Albumin Globulin Ratio 1.8 (0.9-2); Albumin Level 4.1 gm/dl (3.4-5.0); BUN Creatinine Ratio 21.1 (10-20); Bilirubin,Total 1.1 mg/dl (0.2-1.0); Calcium 8.6 mg/dl (8.6-10.3); Creatinine Clr Calc Pharmacy 18.3 ml/min; Est GFR (African American) 30.2 ml/min; Est GFR (Non-African American) 26.1 ml/min; Globulin 2.3 gm/dl (2.5-4.0); Potassium 3.5 mmol/L (3.5-5.1); Total Protein 6.4 gm/dl (6.0-8.3)
[2023-06-23 05:00] LABS: INR 1.9 (0.9-1.1); Prothrombin Time 19.8 Seconds (9.0-12.0)
[2023-06-23 05:03] LABS: Basophils # (auto) 0.06 K/uL (0-0.2); Basophils % (auto) 0.3 %; Eosinophils # (auto) 0.01 K/uL (0-0.50); Eosinophils % (auto) 0.1 %; Hematocrit (blood only) 29.6 % (37.0-47.0); Hemoglobin 9.8 g/dl (12.0-16.0); Immature Granulocytes # (auto) 0.59 K/uL (0.01-0.20); Lymphocytes # (auto) 0.34 K/uL (1.2-3.4); Lymphocytes % (auto) 1.7 %; Mean Corpuscular Hemoglobin 30.4 pg (25.0-34.0); Mean Corpuscular Hgb Conc 33.1 g/dL (32.0-36.0); Mean Corpuscular Volume 91.9 fL (80.0-100.0); Mean Platelet Volume 11.8 fL (9.4-12.4); Monocytes # (auto) 0.99 K/uL (0.11-0.59); Neutrophils # (auto) 17.98 K/uL (1.40-6.50); Neutrophils % (auto) 89.9 %; Platelet Count 133 K/uL (130-400); RDW Coefficient of Variation 16.2 % (11.5-14.5); RDW Standard Deviation 55.2 fL (36.4-46.3); Red Blood Count 3.22 M/uL (4.20-5.40); White Blood Count 19.97 K/ul (4.8-10.8)
[2023-06-23] MEDS: PANTOprazole 40 MG TAB PO SCH (06:24)
[2023-06-23] MEDS: LEVOTHYROXINE SODIUM 25 MCG TABLET PO SCH (06:24)
[2023-06-23] MEDS: ALBUMIN 25% 25 GM/100 ML VIAL IV SCH ×3 (06:25→20:21)
[2023-06-23] MEDS: CHOLECALCIFEROL 1,000 UNITS 25 MCG TAB PO SCH (08:58)
[2023-06-23] MEDS: AMIODARONE 200 MG TAB PO SCH (08:58)
[2023-06-23] MEDS: SODIUM CHLORIDE 0.9% 1000ML 1,000 ML IV SCH ×2 (08:58→21:28)
[2023-06-23] MEDS: dilTIAZem HCL 120 MG CAPCR PO SCH (08:59)
[2023-06-23] MEDS: METOPROLOL SUCC 25MG EXT REL TAB PO SCH (08:59)
[2023-06-23] MEDS: POTASSIUM CHLORIDE 10 MEQ TABCR PO SCH (08:59)
[2023-06-23] MEDS: DAPTOmycin 400 MG in SYRINGE 0 ML IV SCH (08:59)
[2023-06-23] MEDS ORDERED: FUROSEMIDE 20 MG TAB PO SCH (09:00)
--- NOTE | 2023-06-23 13:06 | Hospitalist Progress Note ---
Date of Service June 23, 2023 Assessment & Plan (1) Sepsis: Plan Per admitting service notes with addendum: Pt is an 87yoF with PMhx significant for PAF, NSVT, HOCM with dual chamber AICD in place, hypothyroidism, Hx of pleural effusions, mild dementia, GERD, malnutrition admitted with altered mental status in the setting of colitis and concerns for stroke. 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 Noted a change in her mental status before being brought in, after she stated she was not feeling well and had episodes of emesis with rigors. Stroke alert was called in the ED after she was noted to be leaning to the left side with left facial droop. Daughters state that they did not notice the changes, do not believe the stroke alert was needed as they state she appears to be at baseline physically. [facility] chart review notes pt was started on Donepezil 5mg in February for mild vasc ular dementia. Pt AAOx1, to self only WBC elevated, tachypneic, noted fever with UA suggestive of infection. Urine Cx pending. Blood Cx x2 pending, biofire pending Head CT, CTA, neck CTA -with no acute changes. Pt with pacemaker- consider MRI brain if pacemaker compatible. CT abd/pelvis noted colitis, splenic infarcts and a hiatal hernia. IV Zosyn ordered for empiric coverage of both UTI and colitis Telemetry monitoring. Holding off on gentle hydration, given pt's cardiac Hx- continue to monitor for need for it 06/23 Afebrile, mental status improved compared to yesterday Blood cultures: Gram-positive cocci in clusters Urine culture: Gram-negative bacilli Daptomycin IV day #1 started Continue Zosyn IV day #2 ID service consulted Hypoxia Noted oxygen saturations in the 80s in the ED No use of oxygen at home, on 2L currently Chest XRAY notes cardiomegaly -- Wean of oxygen accordingly Hx of pleural effusions --Hold Lasix in light of sepsis PAF, NSVT, HOCM with dual chamber AICD in place Follows with Cardiology Continue amiodarone, metoprolol, diltiazem and Coumadin for a fib anticoagulation INR 1.9 with POC noting a value of 2. Follows with Coumadin clinic, last seen on 06/20 and INR noted to be 1.9. No warfarin dose changes made. Trend INR with AM lab- and adjust warfarin dose as needed with goal 2-3 06/23 INR 1.9 Continue Coumadin Continue amiodarone, metoprolol, diltiazem Malnutrition On remeron, started by pcp CKD Stable Creatinine increased to 1.7 today Continue to monitor Hypothyroidism Continue levothyroxine GERD Continue home ppi CODE STATUS: Full code after discussion with daughters in the room Diet: Passed dysphagia screen-HH, easy to chew DVT prophylaxis: On coumadin Dispo: Pending Usually lives by herself plan of care discussed with patient and her daughters at bedside in detail and at length all questions answered They are understanding, agreeable, comfortable with the plan of care Admission and Anticipated Discharge Date Admission Date: June 22, 2023 Subjective ff up for sepsis, etc seen resting in bed, awake, alert, oriented x 2 answers most questions appropriately, still forgetful about other things daughters visiting, states mental status is not yet full back to normal denies pain, cough, shortness of breath no abd pain, urinary symptoms denies any open wounds aside from 2 small healing wounds on her forehead and R eyebrow area- from a dermatologic procedure several days ago no other symptoms Review of Systems Review of Systems: all noted and negative except for above Physical Exam Physical Exam: General- oriented x 2, not in distress, speaks in sentences with no effort or accessory muscle use Head- atraumatic small wounds forehead and brows: no signs of infection Eyes- PERRL, EOMI, anicteric ENT- oropharynx clear Neck- supple, no JVD, no adenopathy, no thyromegaly; carotids +2/2, no bruits appreciated Lungs- clear to auscultation bilaterally, no rales/wheezes Heart- normal rate, regular rhythm; (+) grade 3/6 murmur, no gallop, no rub appreciated Abdomen- normal bowel sounds, nondistended, soft, nontender, no masses or hepatosplenomegaly Extremities- no pretibial edema, no calf tenderness; peripheral pulses intact Neuro- alert, oriented x 2; CN 2-12 grossly intact; motor 5/5 bilaterally;sensation 100% on all extremities; no other gross focal neurologic deficits Skin- warm & dry Results & Data Results & Data Vital Signs (Past 12 Hours) all noted and reviewed including below
[2023-06-23] MEDS: WARFARIN SOD 4 MG TAB PO SCH (17:09)
[2023-06-23] MEDS: DONEPEZIL HCL 5 MG TAB PO SCH (20:29)
[2023-06-23] MEDS: MIRTAZAPINE TAB 15 MG TAB PO SCH (20:29)
[2023-06-23 22:12] LABS: Adenovirus F 40/41 PCR Not Detected (NotDetected); Astrovirus PCR Not Detected (NotDetected); Campylobacter PCR Not Detected (NotDetected); Cryptosporidium PCR Not Detected (NotDetected); Cyclospora cayetanensis PCR Not Detected (NotDetected); Entamoeba histolytica PCR Not Detected (NotDetected); Enteroaggregative E.coli(EAEC) Not Detected (NotDetected); Enterotoxigenic E.coli (ETEC) Not Detected (NotDetected); Giardia lamblia PCR Not Detected (NotDetected); Norovirus GI/GII PCR Not Detected (NotDetected); Plesiomonas shigelloides PCR Not Detected (NotDetected); Rotavirus A PCR Not Detected (NotDetected); Salmonella PCR Not Detected (NotDetected); Sapovirus PCR Not Detected (NotDetected); Shiga-like Toxin E.coli (STEC) Not Detected (NotDetected); Shigella/Enteroinvasive E.coli Not Detected (NotDetected); Vibrio cholerae PCR Not Detected (NotDetected); Vibrio species PCR Not Detected (NotDetected); Yersinia enterocolitica PCR Not Detected (NotDetected)
[2023-06-23 22:21] LABS: Enteropathogenic E.coli (EPEC) DETECTED (NotDetected)
[2023-06-24] MEDS: ALBUMIN 25% 25 GM/100 ML VIAL IV SCH ×2 (05:01→16:23)
[2023-06-24] MEDS: LEVOTHYROXINE SODIUM 25 MCG TABLET PO SCH (05:11)
[2023-06-24] MEDS: PANTOprazole 40 MG TAB PO SCH (05:11)
[2023-06-24 06:07] LABS: Hematocrit (blood only) 30.5 % (37.0-47.0); Hemoglobin 9.8 g/dl (12.0-16.0); Mean Corpuscular Hemoglobin 29.5 pg (25.0-34.0); Mean Corpuscular Hgb Conc 32.1 g/dL (32.0-36.0); Mean Corpuscular Volume 91.9 fL (80.0-100.0); Mean Platelet Volume 12.3 fL (9.4-12.4); Platelet Count 119 K/uL (130-400); RDW Coefficient of Variation 16.7 % (11.5-14.5); RDW Standard Deviation 56.5 fL (36.4-46.3); Red Blood Count 3.32 M/uL (4.20-5.40); White Blood Count 18.41 K/ul (4.8-10.8)
[2023-06-24 06:23] LABS: INR 1.8 (0.9-1.1); Prothrombin Time 19.3 Seconds (9.0-12.0)
[2023-06-24 06:24] LABS: Albumin Globulin Ratio 1.9 (0.9-2); Albumin Level 4.5 gm/dl (3.4-5.0); BUN Creatinine Ratio 19.6 (10-20); Bilirubin,Total 0.9 mg/dl (0.2-1.0); Calcium 8.8 mg/dl (8.6-10.3); Creatinine Clr Calc Pharmacy 10.5 ml/min; Est GFR (African American) 16.7 ml/min; Est GFR (Non-African American) 14.4 ml/min; Globulin 2.4 gm/dl (2.5-4.0); Potassium 3.3 mmol/L (3.5-5.1); Total Protein 6.9 gm/dl (6.0-8.3)
[2023-06-24 06:32] LABS: Basophils # (auto) 0.05 K/uL (0-0.2); Basophils % (auto) 0.3 %; Dohle Bodies 1+; Echinocytes 1+; Eosinophils # (auto) 0.05 K/uL (0-0.50); Eosinophils % (auto) 0.3 %; Immature Granulocytes # (auto) 1.65 K/uL (0.01-0.20); Lymphocytes # (auto) 0.75 K/uL (1.2-3.4); Lymphocytes % (auto) 4.1 %; Monocytes # (auto) 1.03 K/uL (0.11-0.59); Monocytes % (auto) 5.6 %; Neutrophils # (auto) 14.88 K/uL (1.40-6.50); Neutrophils % (auto) 80.7 %
[2023-06-24] MEDS: CHOLECALCIFEROL 1,000 UNITS 25 MCG TAB PO SCH (07:52)
[2023-06-24] MEDS: METOPROLOL SUCC 25MG EXT REL TAB PO SCH (07:52)
[2023-06-24] MEDS: AMIODARONE 200 MG TAB PO SCH (07:52)
[2023-06-24] MEDS: dilTIAZem HCL 120 MG CAPCR PO SCH (07:52)
[2023-06-24] MEDS: PIPERACILLIN/TAZOBACTAM 4.5 GM in DEXTROSE 5% 100 ML IV SCH (07:53)
[2023-06-24] MEDS: POTASSIUM CHLORIDE 10 MEQ TABCR PO SCH (07:53)
--- NOTE | 2023-06-24 15:20 | Hospitalist Progress Note ---
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 Sepsis secondary to MRSA bacteremia Likely secondary to infected ICD Acute metabolic encephalopathy secondary to above Daughters present note that at baseline she volunteers, lives alone. Noted a change in her mental status before being brought in, after she stated she was not feeling well and had episodes of emesis with rigors. Stroke alert was called in the ED after she was noted to be leaning to the left side with left facial droop. Daughters state that they did not notice the changes, do not believe the stroke alert was needed as they state she appears to be at baseline physically. [facility] chart review notes pt was started on Donepezil 5mg in February for mild vascular dementia. Pt AAOx1, to self only WBC elevated, tachypneic, noted fever with UA suggestive of infection. Head CT, CTA, neck CTA -with no acute changes. Pt with pacemaker- consider MRI brain if pacemaker compatible. CT abd/pelvis noted colitis, splenic infarcts and a hiatal hernia. 06/24 Afebrile, mental status improving gradually Blood cultures: MRSA Repeat blood cultures: Pending Urine culture: E. coli Infectious disease specialist consulted-Dr. Scruggs Recommend removal of ICD and DAVEY Cardiology service consulted Daptomycin IV day #2 Zosyn IV discontinued-patient having asymptomatic bacteriuria, stool positive for EPEC, no need for antibiotics per ID Asymptomatic bacteriuria Culture growing E. coli Denies urinary symptoms Antibiotics discontinued per ID service Colitis, secondary to EPEC Management IV fluids, electrolytes monitoring No need for antibiotics per ID service Hypoxia Noted oxygen saturations in the 80s in the ED No use of oxygen at home, on 2L currently Chest XRAY notes cardiomegaly -- Wean of oxygen accordingly Hx of pleural effusions --Hold Lasix in light of sepsis PAF, NSVT, HOCM with dual chamber AICD in place Follows with Cardiology Continue amiodarone, metoprolol, diltiazem and Coumadin for a fib anticoagulation INR 1.9 with POC noting a value of 2. Follows with Coumadin clinic, last seen on 07/28 and INR noted to be 1.9. No warfarin dose changes made. Trend INR with AM lab- and adjust warfarin dose as needed with goal 2-3 06/24 INR 1.8 Continue Coumadin Continue amiodarone, metoprolol, diltiazem Moderate malnutrition On remeron, started by pcp Acute kidney injury on CKD Likely secondary to underlying sepsis Creatinine increased from 1.7, now 2.8 IV fluids Hypothyroidism Continue levothyroxine GERD Continue home PPI CODE STATUS: Full code DVT prophylaxis: On coumadin Dispo: Pending Usually lives by herself plan of care discussed with patient and her daughter at bedside in detail and at length all questions answered They are understanding, agreeable, comfortable with the plan of care Admission and Anticipated Discharge Date Admission Date: June 22, 2023 Subjective Follow-up for MRSA bacteremia, etc. Seen resting in bed, sitting up, having lunch Patient's daughter Brittney at the bedside States she feels improved compared to yesterday, but still feels on the weak side Mental status alert 100% back to normal Oriented x1-2 Denies chest pain, shortness of breath, palpitations, dizziness No abdominal pain, urinary symptoms Having some diarrhea Review of Systems Review of Systems: all noted and negative except for above Physical Exam Physical Exam: General- oriented x 3, not in distress, speaks in sentences with no effort or accessory muscle use Eyes- anicteric Neck- no JVD Lungs- clear breath sounds bilaterally, no rales/wheezes Heart- normal rate, regular rhythm; grade 3 holosystolic murmur Abdomen- normal bowel sounds, nondistended, soft, nontender Extremities- no pretibial edema, no calf tenderness Neuro- alert, oriented x 3; no gross focal neurologic deficits Skin- warm & dry Results & Data Results & Data Vital Signs (Past 12 Hours) Vital Signs Temp Pulse Resp BP Pulse Ox O2 Del Method 06/24/23 14:43 92 06/24/23 12:00 36.6 C 70 16 118/74 91 Room Air 06/24/23 08:00 36.8 C 60 20 127/58 L 92 Room Air 06/24/23 03:25 37.4 C 63 20 125/72 94 Room Air all noted and reviewed including below
[2023-06-24] MEDS ORDERED: WARFARIN SOD 2 MG TAB PO ONE (15:45)
[2023-06-24] MEDS ORDERED: WARFARIN SOD 2 MG TAB PO SCH (16:00)
[2023-06-24] MEDS: SODIUM CHLORIDE 0.9% 1000ML 1,000 ML IV SCH (16:22)
--- NOTE | 2023-06-24 16:47 | Cardiology Consultation ---
Date of Consultation June 24, 2023 Assessment & Plan (1) Sepsis: 87-year-old frail female presents with sepsis and findings of E. coli urinary tract infection and methicillin resistant Staph aureus bacteremia History of hypertrophic obstructive cardiomyopathy Dual-chamber AICD Paroxysmal atrial fibrillation Nonobstructive coronary heart disease noted on cardiac catheterization in 2016 Patient is acutely ill, creatinine having been 1.5 at presentation and is trended up to 2.86. Per discussion with her nurse, her urine output is difficult to quantitate if she has been incontinent. She has had multiple episodes of watery diarrhea. She was receiving IV fluid resuscitation at present. We will plan on replacing her potassium. Her transthoracic echocardiogram performed earlier this hospital stay on 06/23/2023 revealed LVEF of 40 to 45% which is lower than her usual baseline. Aortic stenosis or pseudo aortic stenosis noted. No vegetation noted within the limitations of the imaging modality. Plan for DAVEY tomorrow with anesthesia consultation. Informed consent obtained. History of Present Illness Attending Physician: Gerry Bishop MD History of Present Illness Aleyda Beasley is an 87-year-old female seen in cardiology consultation per the request of Dr Stafford For evaluation of bacteremia. The patient's daughter and her 2 grandsons were present at the bedside during my assessment in ICU room 109. 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 At first there was concern for possible stroke. CT and CT angiogram of the brain were without acute findings. A CT of the abdomen and pelvis suggested changes in the bowels consistent with a nonspecific enterocolitis, hypodensities in the spleen consistent with small splenic infarcts, and a hiatal hernia. 2 out of 2 blood cultures obtained on 06/22/2023 have yielded findings of methicillin-resistant Staph aureus and E. coli has been found on a urinalysis. Repeat blood cultures performed after the initiation of antibiotics, drawn today, have not yielded growth thus far. At the time my assessment the patient's mental status was appropriate. She recognized me as I have followed her for about 10 years as an outpatient. Her daughter was at the bedside and provided additional history. Patient was frail and cachectic in appearance Her past medical history is notable for hypertrophic cardiomyopathy, history of dual-chamber AICD implantation. Her initial device was placed in December,. Generator change performed April,. Allergies Allergy/AdvReac Type Severity Reaction Status Date / Time bee venom protein (honey bee) Allergy Intermediate Hives Verified 06/22/23 17:33 alendronate sodium AdvReac Intermediate Muscle Pain Verified 06/22/23 17:33 [From Fosamax] simvastatin AdvReac Intermediate Muscle Pain Verified 06/22/23 17:33 Home Medications Medication Instructions Recorded Confirmed Type amiodarone 200 mg tablet 200 mg PO DAILY 05/02/20 06/22/23 History levothyroxine 25 mcg capsule 25 mcg PO DAILYBB 05/02/20 06/22/23 History omeprazole 20 mg capsule,delayed 20 mg PO DAILYBB 05/02/20 06/22/23 History release betamethasone dipropionate 0.05 % 1 applic topical BID PRN 06/22/23 06/22/23 History topical cream RASH/ITCHING cholecalciferol (vitamin D3) 25 1,000 unit PO QAM 06/22/23 06/22/23 History mcg (1,000 unit) capsule (Vitamin D3) diltiazem HCl 120 mg capsule,24 120 mg PO DAILY 06/22/23 06/22/23 History hr,extended release donepezil 5 mg tablet 5 mg PO QPM 06/22/23 06/22/23 History furosemide 20 mg tablet 20 mg PO 3XWK 06/22/23 06/22/23 History hydrocortisone 2.5 % topical cream 1 applic topical BID PRN RECTAL 06/22/23 06/22/23 History IRRITATION loperamide 2 mg tablet (Imodium 1 mg PO DAILY PRN Diarrhea 06/22/23 06/22/23 History A-D) metoprolol succinate 25 mg 25 mg PO DAILY 06/22/23 06/22/23 History tablet,extended release 24 hr mirtazapine 15 mg tablet 15 mg PO HS 06/22/23 06/22/23 History potassium chloride 10 mEq 10 meq PO DAILY 06/22/23 06/22/23 History capsule,extended release warfarin 2 mg tablet See Rx Instructions .Route .COMPLEX 06/22/23 06/22/23 History Patient History Medical History CAD (coronary artery disease) Cardiomyopathy Heart disease HOCM (hypertrophic obstructive cardiomyopathy) HTN (hypertension) Hyperlipidemia Implantable cardioverter-defibrillator (ICD) at end of battery life pt for ICD generator change; risks discussed; consents signed PAF (paroxysmal atrial fibrillation) Tricuspid regurgitation Family History Mother No problems noted. Social History Smoking Status: Former smoker Second Hand Exposure: No; Do You Dip or Chew Tobacco: No; Tobacco Cessation Education Requested by Patient: No Hx Alcohol Use: No Hx Substance Use: No Preferred Language: Mohawk Communication Ability: Effective Departure Clerk Required: No Beliefs That Will Affect Care: None Current Living Situation: Alone Other Information That Helps Us Care for You: No Feels Safe at Home: Yes Safety Concerns: Feels Safe At This Time Assistive Devices: None Review of Systems Review of Systems: All systems reviewed & are unremarkable except as noted in HPI & below Physical Exam Constitutional: + thin and + cachectic Eyes: PERRL, conjunctivae normal, anicteric sclerae Neck: trachea midline, no thyromegaly Respiratory: normal respiratory effort, lungs clear to auscultation Cardiovascular: Rate/Rhythm: regular rate Heart Sounds: + murmur (2/6 SM) Gastrointestinal (Abdomen): normal bowel sounds, soft, nontender, no hepatosplenomegaly Neurologic: PERRL, EOMI, accommodation nl, no face palsy, no dysarthria Results & Data Vital Signs (Past 12 Hours) Vital Signs Temp Pulse Resp BP Pulse Ox O2 Del Method 06/24/23 14:43 92 06/24/23 12:00 36.6 C 70 16 118/74 91 Room Air 06/24/23 08:00 36.8 C 60 20 127/58 L 92 Room Air Laboratory Results Cardiac Enzymes 06/24/23 Range/Units 05:33 AST 61 H (13-39) U/L Coagulation 06/24/23 Range/Units 05:33 PT 19.3 H (9.0-12.0) Seconds CBC 06/24/23 Range/Units 05:33 WBC 18.41 H (4.8-10.8) K/ul RBC 3.32 L (4.20-5.40) M/uL Hgb 9.8 L (12.0-16.0) g/dl Hct 30.5 L (37.0-47.0) % Plt Count 119 L (130-400) K/uL Neut # (Auto) 14.88 H (1.40-6.50) K/uL Lymph # (Auto) 0.75 L (1.2-3.4) K/uL [place] # (Auto) 1.03 H (0.11-0.59) K/uL Eos # (Auto) 0.05 (0-0.50) K/uL Baso # (Auto) 0.05 (0-0.2) K/uL Comprehensive Metabolic Panel 06/24/23 Range/Units 05:33 Sodium 139 (136-145) mmol/L Potassium 3.3 L (3.5-5.1) mmol/L Chloride 106 (98-107) mmol/L Carbon Dioxide 18 L (21-32) mmol/L BUN 56 H (6-23) mg/dl Creatinine 2.86 H D (0.6-1.2) mg/dl Glucose 92 (70-99(Fasting)) mg/dl Calcium 8.8 (8.6-10.3) mg/dl AST 61 H (13-39) U/L ALT 30 (7-52) U/L Alkaline Phosphatase 36 (34-104) U/L Total Protein 6.9 (6.0-8.3) gm/dl Albumin 4.5 (3.4-5.0) gm/dl Intake and Output 06/24/23 06/24/23 06/24/23 06:59 14:59 22:59 Intake Total 2029 1092.5 / 1092.5 Output Total Balance 2025 1092.5 / 1092.5 Intake: IV 220 / 1630 1092.5 / 1092.5 Albumin 25% 25 gm In 100 ml @ 100 / 400 50 mls/hr IV Q8H MANUEL Rx#: [id number] Piperacillin/Tazobactam 4.5 gm 120 / 120 92.5 / 92.5 In Dextrose 5% 100 ml @ 30 mls/ hr IV Q12H MANUEL Rx#:[id number] Sodium Chloride 0.9% 1000ML 1, 1000 / 1000 000 ml @ 80 mls/hr IV .[id number] MANUEL Rx#:[id number] Oral 50 / 400 Output: # Bowel Movements 4 / 4 Other: # Unmeasured Voids 3 Weight 46.4 kg Weight Measurement Method Built in [place] Diagnostic Findings EKG performed 06/22/2023 and reviewed independently reveals underlying atrial fibrillation with wide QRS. Most recent telemetry findings revealed sinus rhythm with ventricular pacing.
[2023-06-24] MEDS ORDERED: POTASSIUM CHLORIDE 20 MEQ/15 ML UDC PO STA (16:54)
--- NOTE | 2023-06-24 17:16 | Anesthesiology Consultation ---
Date of Service June 24, 2023 Assessment & Plan Chart Review Chart Review: Acceptable Risk for Surgery and Patient NOT seen in Pre Admission Testing Consults Requested none ASA ASA4 Proposed Anesthesia Anesthesia Type: MAC History Height/Weight Height: 5 ft 3 in Weight: 46.4 kg Allergies Allergy/AdvReac Type Severity Reaction Status Date / Time bee venom protein (honey bee) Allergy Intermediate Hives Verified 06/22/23 17:33 alendronate sodium AdvReac Intermediate Muscle Pain Verified 06/22/23 17:33 [From Fosamax] simvastatin AdvReac Intermediate Muscle Pain Verified 06/22/23 17:33 Medications Home Medications Medication Instructions Recorded Confirmed Last Taken amiodarone 200 mg tablet 200 mg PO DAILY 05/02/20 06/22/23 Unknown levothyroxine 25 mcg capsule 25 mcg PO DAILYBB 05/02/20 06/22/23 Unknown omeprazole 20 mg capsule,delayed 20 mg PO DAILYBB 05/02/20 06/22/23 Unknown release betamethasone dipropionate 0.05 % 1 applic topical BID PRN 06/22/23 06/22/23 Unknown topical cream RASH/ITCHING cholecalciferol (vitamin D3) 25 1,000 unit PO QAM 06/22/23 06/22/23 Unknown mcg (1,000 unit) capsule (Vitamin D3) diltiazem HCl 120 mg capsule,24 120 mg PO DAILY 06/22/23 06/22/23 Unknown hr,extended release donepezil 5 mg tablet 5 mg PO QPM 06/22/23 06/22/23 Unknown furosemide 20 mg tablet 20 mg PO 3XWK 06/22/23 06/22/23 Unknown hydrocortisone 2.5 % topical cream 1 applic topical BID PRN RECTAL 06/22/23 06/22/23 Unknown IRRITATION loperamide 2 mg tablet (Imodium 1 mg PO DAILY PRN Diarrhea 06/22/23 06/22/23 Unknown A-D) metoprolol succinate 25 mg 25 mg PO DAILY 06/22/23 06/22/23 Unknown tablet,extended release 24 hr mirtazapine 15 mg tablet 15 mg PO HS 06/22/23 06/22/23 Unknown potassium chloride 10 mEq 10 meq PO DAILY 06/22/23 06/22/23 Unknown capsule,extended release warfarin 2 mg tablet See Rx Instructions .Route .COMPLEX 06/22/23 06/22/23 Unknown Active Medications Generic Name Dose Route Start Last Admin Trade Name Rod PRN Reason Stop Dose Admin Amiodarone HCl 200 mg 06/23/23 09:00 06/24/23 07:52 Amiodarone 200 Mg Tab PO 07/23/23 08:59 200 mg DAILY MANUEL Administration Diltiazem HCl 120 mg 06/23/23 09:00 06/24/23 07:52 Diltiazem Hcl 120 Mg Capcr PO 07/23/23 08:59 120 mg DAILY MANUEL Administration Donepezil HCl 5 mg 06/22/23 21:00 06/23/23 20:29 Donepezil Hcl 5 Mg Tab PO 07/22/23 20:59 5 mg QPM MANUEL Administration Sodium Chloride 1,000 mls @ 80 mls/hr 06/23/23 08:00 06/24/23 16:22 Nss 1000ml IV 07/23/23 07:59 80 mls/hr .[id number] MANUEL Administration Daptomycin 400 mg/ Syringe 8 mls @ 4 mls/min 06/23/23 09:00 06/23/23 08:59 IV 07/07/23 08:59 4 mls/min Q48H MANUEL Administration Protocol Levothyroxine Sodium 25 mcg 06/23/23 06:30 06/24/23 05:11 Levothyroxine Sodium 25 Mcg Tablet PO 07/23/23 06:29 25 mcg DAILYBB MANUEL Administration Metoprolol Succinate 25 mg 06/23/23 09:00 06/24/23 07:52 Metoprolol Succ 25mg Ext Rel Tab PO 07/23/23 08:59 25 mg DAILY MANUEL Administration Mirtazapine 15 mg 06/22/23 21:00 06/23/23 20:29 Mirtazapine Tab 15 Mg Tab PO 07/22/23 20:59 15 mg HS MANUEL Administration Pantoprazole Sodium 40 mg 06/23/23 06:30 06/24/23 05:11 Pantoprazole 40 Mg Tab PO 07/23/23 06:29 40 mg DAILYBB MANUEL Administration Potassium Chloride 10 meq 06/23/23 09:00 06/24/23 07:53 Potassium Chloride 10 Meq Tabcr PO 07/23/23 08:59 10 meq DAILY MANUEL Administration Vitamin D 1,000 units 06/23/23 09:00 06/24/23 07:52 Cholecalciferol 1,000 Units 25 Mcg Tab PO 07/23/23 08:59 1,000 units QAM MANUEL Administration Warfarin Sodium 2 mg 06/24/23 16:00 06/24/23 16:21 Warfarin Sod 2 Mg Tab PO 07/24/23 15:59 2 mg [id number] MANUEL Administration Warfarin Sodium 4 mg 06/23/23 16:00 06/23/23 17:09 Warfarin Sod 4 Mg Tab PO 07/23/23 15:59 4 mg [id number] MANUEL Administration Past Medical History Medical History CAD (coronary artery disease) Cardiomyopathy Heart disease HOCM (hypertrophic obstructive cardiomyopathy) HTN (hypertension) Hyperlipidemia Implantable cardioverter-defibrillator (ICD) at end of battery life pt for ICD generator change; risks discussed; consents signed PAF (paroxysmal atrial fibrillation) Tricuspid regurgitation Exercise / Class Metabolic Activity III < 4 Walking/Shop/Light housework Past Family History Family History Mother No problems noted. Past Anesthesia History No Hx of Anesthesia Complications and No Family Hx of Anesthesia Complications History of PONV No Hx of PONV and No Hx of Motion Sickness Social History Smoking Status: Former smoker Do You Dip or Chew Tobacco: No Hx Alcohol Use: No Hx Substance Use: No substance use type: does not use Physical Exam Vital Signs Last Vital Signs Temp 36.6 C 06/24/23 12:00 Pulse 70 06/24/23 12:00 Resp 16 06/24/23 12:00 BP 118/74 06/24/23 12:00 Pulse Ox 92 06/24/23 14:43 O2 Del Method Room Air 06/24/23 12:00 O2 Flow Rate 2 06/23/23 16:13 Testing Laboratory Results 06/24/23 05:33 06/24/23 05:33 PT 19.3 Seconds (9.0-12.0) H 06/24/23 05:33 INR 1.8 (0.9-1.1) H 06/24/23 05:33 APTT 23.9 Seconds (21.0-31.0) 06/22/23 16:36 Urine Color Yellow 06/22/23 17:48 Urine Appearance Cloudy (Clear) A 06/22/23 17:48 Urine pH 5.0 (4.5-7.5) 06/22/23 17:48 Ur Specific [place] 1.034 (1.000-1.030) H 06/22/23 17:48 Urine Protein Trace (Negative) H 06/22/23 17:48 Urine Glucose (UA) Negative (Negative) 06/22/23 17:48 Urine Ketones Negative (Negative) 06/22/23 17:48 Urine Nitrite Positive (Negative) A 06/22/23 17:48 Ur Leukocyte Esterase Trace (Negative) H 06/22/23 17:48 Urine WBC (Auto) 1-5 /hpf (0-5) 06/22/23 17:48 Urine RBC (Auto) >30 /hpf (0-4) H 06/22/23 17:48 U Hyaline Cast (Auto) 1-5 /lpf (0-5) 06/22/23 17:48 U Epithel Cells (Auto) >30 /lpf (0-5) H 06/22/23 17:48 Urine Bacteria (Auto) 2+ (Negative) H 06/22/23 17:48 06/22/23 17:48 Urine Culture - Final Urine,Clean Catch Escherichia coli 06/22/23 17:27 Aerobic Blood Culture - Final Blood Staph aureus MRSA Anaerobic Blood Culture - Final Staph aureus MRSA 06/22/23 17:05 Aerobic Blood Culture - Final Blood Staph aureus MRSA Anaerobic Blood Culture - Final Staph aureus MRSA Electrocardiogram Date: 06/22/23 Findings: + LVH and + AFIB @ (@ 138 w/ RVR;LAD;NSIVCB) Chest X-Ray Date: 06/22/23 Findings: + cardiomegaly, + pulmonary vascular congestion (mild) and + other (left sided pacer/aicd) Echocardiogram Date: 06/23/23 EF: 40% LV Function: dysfunctional (mildly decreased systolic fxn) RWMA: + none Other Findings: + atrial enlargement (LA severely dilated), + LVH (severe asymmetric LVH) and + pertinent finding (small LV cavity) Valvular Disease: + (severe suspected) and + MR (mod.) TR-severe RV sys. [id number] torr
[2023-06-24] MEDS: MIRTAZAPINE TAB 15 MG TAB PO SCH (19:18)
[2023-06-24] MEDS: DONEPEZIL HCL 5 MG TAB PO SCH (19:18)
--- NOTE | 2023-06-24 23:35 | Electrocardiogram Report ---
Test Reason : Blood Pressure : / mmHG Vent. Rate : 138 BPM Atrial Rate : 000 BPM P-R Int : 000 ms QRS Dur : 162 ms QT Int : 374 ms P-R-T Axes : 000 -55 156 degrees QTc Int : 566 ms Poor data quality, interpretation may be adversely affected Atrial fibrillation with rapid ventricular response with premature ventricular or aberrantly conducte d complexes Left axis deviation Non-specific intra-ventricular conduction block Left ventricular hypertrophy Abnormal ECG When compared with ECG of 20-APR-2018 06:48, Atrial fibrillation has replaced Electronic ventricular pacemaker Vent. rate has increased BY 78 BPM Confirmed by Maycol Fischer ([id number]) on 06/24/2023 11:35:15 PM Referred By: REFERRED SELF Confirmed By:Maycol Fischer
[2023-06-25] MEDS: PANTOprazole 40 MG TAB PO SCH (05:06)
[2023-06-25] MEDS: LEVOTHYROXINE SODIUM 25 MCG TABLET PO SCH (05:06)
[2023-06-25] MEDS: SODIUM CHLORIDE 0.9% 1000ML 1,000 ML IV SCH ×3 (05:06→21:31)
[2023-06-25 05:14] LABS: Hemoglobin 10.3 g/dl (12.0-16.0); Mean Corpuscular Hemoglobin 30.1 pg (25.0-34.0); Mean Corpuscular Hgb Conc 32.2 g/dL (32.0-36.0); Mean Corpuscular Volume 93.6 fL (80.0-100.0); Mean Platelet Volume 12.5 fL (9.4-12.4); Platelet Count 136 K/uL (130-400); RDW Coefficient of Variation 16.6 % (11.5-14.5); RDW Standard Deviation 57.3 fL (36.4-46.3); Red Blood Count 3.42 M/uL (4.20-5.40); White Blood Count 16.74 K/ul (4.8-10.8)
[2023-06-25 05:19] LABS: Albumin Globulin Ratio 1.8 (0.9-2); Albumin Level 4.4 gm/dl (3.4-5.0); BUN Creatinine Ratio 21.2 (10-20); Bilirubin,Total 0.8 mg/dl (0.2-1.0); Calcium 8.8 mg/dl (8.6-10.3); Creatinine Clr Calc Pharmacy 9.1 ml/min; Est GFR (Non-African American) 12.1 ml/min; Globulin 2.5 gm/dl (2.5-4.0); Potassium 3.7 mmol/L (3.5-5.1); Total Protein 6.9 gm/dl (6.0-8.3)
[2023-06-25 05:49] LABS: INR 1.9 (0.9-1.1); Prothrombin Time 19.7 Seconds (9.0-12.0)
[2023-06-25 05:57] LABS: Basophils # (auto) 0.04 K/uL (0-0.2); Basophils % (auto) 0.2 %; Dohle Bodies 1+; Echinocytes 1+; Eosinophils # (auto) 0.05 K/uL (0-0.50); Eosinophils % (auto) 0.3 %; Immature Granulocytes # (auto) 1.01 K/uL (0.01-0.20); Lymphocytes # (auto) 0.87 K/uL (1.2-3.4); Lymphocytes % (auto) 5.2 %; Monocytes # (auto) 1.04 K/uL (0.11-0.59); Monocytes % (auto) 6.2 %; Neutrophils # (auto) 13.73 K/uL (1.40-6.50); Neutrophils % (auto) 82.1 %
--- NOTE | 2023-06-25 07:38 | XRay Report ---
SINGLE VIEW CHEST CLINICAL HISTORY: Aspiration. FINDINGS: An AP, portable, upright chest radiograph is compared to study dated 06/22/2023. The examina tion is degraded by portable technique and patient rotation. A 2-lead cardiac AICD is unchanged in p osition and partially obscures the left mid chest. The heart is enlarged and noting atherosclerotic c alcification of the thoracic aorta. The pulmonary vasculature is noncongested. The mitral annulus is densely calcified. Chronic interstitial thickening is similar to previous. There is bibasilar scarrin g/atelectasis. No airspace consolidation or large pleural effusion is identified. No pneumothorax is seen. The skeletal structures are osteopenic. The bony thorax is grossly intact. IMPRESSION: 1. Cardiomegaly and AICD without radiographic evidence of congestive failure. 2. No airspace consolidation or large pleural effusion is identified. ACT 112: Negative or not required by law. Electronically signed by: Jerome Friedman M.D. 06/25/2023 7:37 AM
[2023-06-25] MEDS: CHOLECALCIFEROL 1,000 UNITS 25 MCG TAB PO SCH (08:21)
[2023-06-25] MEDS: dilTIAZem HCL 120 MG CAPCR PO SCH (08:21)
[2023-06-25] MEDS: METOPROLOL SUCC 25MG EXT REL TAB PO SCH (08:21)
[2023-06-25] MEDS: AMIODARONE 200 MG TAB PO SCH (08:21)
[2023-06-25] MEDS: DAPTOmycin 400 MG in SYRINGE 0 ML IV SCH (08:24)
--- NOTE | 2023-06-25 08:43 | History & Physical Bridge Note ---
Date of Service June 25, 2023 History & Physical Bridge Note I have examined the patient, reviewed the History & Physical and in the interval since the performance of the History & Physical I have noted the following changes of clinical significance: no changes noted. Creatinine has trended up to 3.3 . Nursing reports confusion last evening, then slept for 11 hours. This am awake and conversant. BP stable. Telemetry reveals SR with ventricular pacing at 60 bpm.
--- NOTE | 2023-06-25 08:48 | Cardiology Progress Note ---
Date of Service June 25, 2023 Assessment & Plan (1) Sepsis: (2) Heart disease: (3) Implantable cardioverter-defibrillator (ICD) at end of battery life: (4) PAF (paroxysmal atrial fibrillation): (5) AWA (acute kidney injury): Plan 87-year-old frail female presents with sepsis and findings of E. coli urinary tract infection and methicillin resistant Staph aureus bacteremia History of hypertrophic obstructive cardiomyopathy Dual-chamber AICD Paroxysmal atrial fibrillation Nonobstructive coronary heart disease noted on cardiac catheterization in 2015 Patient is acutely ill, creatinine having been 1.5 at presentation and is trended up to 2.86, and 3.3 mg/dl on 06/25/23. Remains on gentle IVF NS 60 ml/hr in setting of BMI of 17.5 kg/m2. DAVEY performed today with patient receiving 80 mg of IV propofol as administered by the anesthesia service. Patient found to have severe calcification of the aortic valve. Severe calcification of the mitral annulus also noted. ICD leads well visualized. No definite vegetation observed, but certainly cannot be completely excluded. Left atrial appendage with no thrombus. Will discuss case with ID. Given predisposing valvular disease and presence of ICD , leads placed in 2011, most recent generator change was in 2019. Patient considered high risk for complication with device removal. Pt felt to be critically ill. Will discuss case with ID, if device extraction to be considered , would performed at a tertiary center with onsite CT surgery back up capability. If ongoing antibiotic therapay reasonalby course for now, would recommend critical care and possibly nephrology consult. Green catheter ordered to allow quantitation of urine output, given incontinence. Case discussed with Dr Abreu. Admission and Anticipated Discharge Date Admission Date: June 22, 2023 Subjective Patient seen in cardiology follow up, prior , during and after DAVEY. Telemetry overnight reveals SR with ventricular pacing in the 60s. Remains on no pressors. Worsening AWA noted. Last fever was on 06/22/23. Physical Exam Constitutional: + thin and + cachectic Eyes: PERRL, conjunctivae normal, anicteric sclerae Neck: trachea midline, no thyromegaly Respiratory: normal respiratory effort, lungs clear to auscultation Cardiovascular: Rate/Rhythm: regular rate Heart Sounds: + murmur (2/6 SM) Gastrointestinal (Abdomen): normal bowel sounds, soft, nontender, no hepatosplenomegaly Neurologic: PERRL, EOMI, accommodation nl, no face palsy, no dysarthria Results & Data Vital Signs (Past 12 Hours) Vital Signs Temp Pulse Resp BP Pulse Ox O2 Del Method O2 Flow Rate 06/25/23 03:05 36.9 C 60 16 118/75 99 Nasal Cannula 3 06/25/23 00:00 36.8 C 60 16 120/70 98 Nasal Cannula 3 06/24/23 20:47 Nasal Cannula 3 Laboratory Results Cardiac Enzymes 06/25/23 Range/Units 04:40 AST 43 H (13-39) U/L Coagulation 06/25/23 Range/Units 04:40 PT 19.7 H (9.0-12.0) Seconds INR 1.9 CBC 06/25/23 Range/Units 04:40 WBC 16.74 H (4.8-10.8) K/ul RBC 3.42 L (4.20-5.40) M/uL Hgb 10.3 L (12.0-16.0) g/dl Hct 32.0 L (37.0-47.0) % Plt Count 136 (130-400) K/uL Neut # (Auto) 13.73 H (1.40-6.50) K/uL Lymph # (Auto) 0.87 L (1.2-3.4) K/uL [place] # (Auto) 1.04 H (0.11-0.59) K/uL Eos # (Auto) 0.05 (0-0.50) K/uL Baso # (Auto) 0.04 (0-0.2) K/uL Comprehensive Metabolic Panel 06/25/23 Range/Units 04:40 Sodium 140 (136-145) mmol/L Potassium 3.7 (3.5-5.1) mmol/L Chloride 111 H (98-107) mmol/L Carbon Dioxide 16 L (21-32) mmol/L BUN 70 H (6-23) mg/dl Creatinine 3.30 H D (0.6-1.2) mg/dl Glucose 120 H (70-99(Fasting)) mg/dl Calcium 8.8 (8.6-10.3) mg/dl AST 43 H (13-39) U/L ALT 27 (7-52) U/L Alkaline Phosphatase 43 (34-104) U/L Total Protein 6.9 (6.0-8.3) gm/dl Albumin 4.4 (3.4-5.0) gm/dl Intake and Output 06/24/23 06/25/23 06/25/23 22:59 06:59 14:59 Intake Total 237.333 / 1977.833 64 / 3 Balance 237. / 833 64 / 3 Intake: IV 237.3 / Sodium Chloride 0.9% 1000ML 1, 237.333 / 1886.333 649 / 1886.333 000 ml @ 60 mls/hr IV .[id number] [facility] Rx#:[id number] Other: # Unmeasured Voids 1 Weight 46.4 kg 44.9 kg Weight Measurement Method Built in Bedscale
--- NOTE | 2023-06-25 09:03 | Hospitalist Progress Note ---
Date of Service June 25, 2023 Assessment & Plan (1) Sepsis: Plan Pt is an 87yoF with PMhx significant for PAF, NSVT, HOCM with dual chamber AICD in place, hypothyroidism, Hx of pleural effusions, mild dementia, GERD, malnutrition admitted with altered mental status in the setting of colitis and concerns for stroke. Sepsis secondary to MRSA bacteremia possibly secondary to infected ICD Acute metabolic encephalopathy secondary to above Daughters note that at baseline she volunteers, lives alone. Noted a change in her mental status before being brought in, after she stated she was not feeling well and had episodes of emesis with rigors. Stroke alert was called in the ED after she was noted to be leaning to the left side with left facial droop. Daughters state that they did not notice the changes, do not believe the stroke alert was needed as they state she appears to be at baseline physically. [facility] chart review notes pt was started on Donepezil 5mg in February for mild vascular dementia. Pt AAOx1, to self only - on admission WBC elevated, tachypneic, noted fever with UA suggestive of infection. Head CT, CTA, neck CTA -with no acute changes. Pt with pacemaker- consider MRI brain if pacemaker compatible. CT abd/pelvis noted colitis, splenic infarcts and a hiatal hernia. 06/25 Afebrile, mental status improving gradually Blood cultures: MRSA Repeat blood cultures: MRSA Urine culture: E. coli Infectious disease specialist consulted-Dr. Kael foster. removal of ICD and DAVEY Cardiology service consulted Pt underwent DAVEY (06/25/23) - no vegetations noted but severe calcification of aortic valve, severe calcification of the mitral annulus also noted. Discussed w/ ID - Dr. Ma - as no vegetations seen - cont. with IV Abx treatment for 4 weeks. Daptomycin IV Zosyn IV discontinued-patient having asymptomatic bacteriuria, stool positive for EPEC, no need for antibiotics per ID Asymptomatic bacteriuria Culture growing E. coli Denies urinary symptoms Antibiotics discontinued per ID service Colitis, secondary to EPEC Management IV fluids, electrolytes monitoring No need for antibiotics per ID service Hypoxia Noted oxygen saturations in the 80s in the ED No use of oxygen at home, on 2L currently Chest XRAY notes cardiomegaly -- Wean of oxygen accordingly Hx of pleural effusions --Hold Lasix in light of sepsis PAF, NSVT, HOCM with dual chamber AICD in place Follows with Cardiology Continue amiodarone, metoprolol, diltiazem and Coumadin for a fib anticoagulation INR 1.9 with POC noting a value of 2. Follows with Coumadin clinic, last seen on 06/20 and INR noted to be 1.9. No warfarin dose changes made. Trend INR with AM lab- and adjust warfarin dose as needed with goal 2-3 Continue Coumadin Continue amiodarone, metoprolol, diltiazem Moderate malnutrition On remeron, started by pcp Acute kidney injury on CKD Likely secondary to underlying sepsis Creatinine increased from 1.7, now 2.8 -> 3.3 IV fluids nephrology consulted Hypothyroidism Continue levothyroxine GERD Continue home PPI CODE STATUS: Full code DVT prophylaxis: On coumadin Dispo: ICU Usually lives by herself Admission and Anticipated Discharge Date Admission Date: June 22, 2023 Subjective Follow-up for MRSA bacteremia, AWA etc. Seen resting in bed, in NAD Feels very weak Just underwent DAVEY earlier this AM Mental status seem back to baseline Denies chest pain, shortness of breath, palpitations, dizziness No abdominal pain, urinary symptoms Having some diarrhea Discussed w/ cardiology and account support associate Plan to discuss w/ ID if AICD removal needed at this point (and therefore pt would need transfer to [facility] [place] [place]) or if aicd can stay - and in that case pt should be closely monitored in icu Cr also elevated - plan to discuss further w/ nephrology Review of Systems Review of Systems: All systems reviewed & are unremarkable except as noted in Subjective Physical Exam Physical Exam: General- thin elderly F in NAD, chronically ill appearing Eyes- anicteric Neck- no JVD Lungs- clear breath sounds bilaterally, no rales/wheezes Heart- normal rate, regular rhythm; + systolic murmur Abdomen- normal bowel sounds, nondistended, soft, nontender Extremities- no pretibial edema, moves extremities Neuro- alert, oriented x 3; speech fluent but very soft, moves extremities Skin- warm & dry Results & Data Results & Data Vital Signs (Past 12 Hours) Vital Signs Temp Pulse Resp BP Pulse Ox O2 Del Method O2 Flow Rate 06/25/23 03:05 36.9 C 60 16 118/75 99 Nasal Cannula 3 06/25/23 00:00 36.8 C 60 16 120/70 98 Nasal Cannula 3 Laboratory Results 06/25/23 06/25/23 06/25/23 Range/Units 04:40 04:40 04:40 WBC 16.74 H (4.8-10.8) K/ul RBC 3.42 L (4.20-5.40) M/uL Hgb 10.3 L (12.0-16.0) g/dl Hct 32.0 L (37.0-47.0) % MCV 93.6 (80.0-100.0) fL MCH 30.1 (25.0-34.0) pg MCHC 32.2 (32.0-36.0) g/dL RDW Std Deviation 57.3 H (36.4-46.3) fL RDW Coeff of Mikki 16.6 H (11.5-14.5) % Plt Count 136 (130-400) K/uL MPV 12.5 H (9.4-12.4) fL Immature Gran % (Auto) 6.0 % Neut % (Auto) 82.1 % Lymph % (Auto) 5.2 % [place] % (Auto) 6.2 % Eos % (Auto) 0.3 % Baso % (Auto) 0.2 % Neut # (Auto) 13.73 H (1.40-6.50) K/uL Lymph # (Auto) 0.87 L (1.2-3.4) K/uL [place] # (Auto) 1.04 H (0.11-0.59) K/uL Eos # (Auto) 0.05 (0-0.50) K/uL Baso # (Auto) 0.04 (0-0.2) K/uL Immature Gran # (Auto) 1.01 H (0.01-0.20) K/uL Dohle Bodies 1+ Echinocytes 1+ PT 19.7 H (9.0-12.0) Seconds INR 1.9 H (0.9-1.1) Sodium 140 (136-145) mmol/L Potassium 3.7 (3.5-5.1) mmol/L Chloride 111 H (98-107) mmol/L Carbon Dioxide 16 L (21-32) mmol/L Anion Gap 13 H (3-11) BUN 70 H (6-23) mg/dl Creatinine 3.30 H D (0.6-1.2) mg/dl Est Cr Clr Drug Dosing 9.1 ml/min Est GFR ( Amer) 14.0 ml/min Est GFR (Non-Af Amer) 12.1 ml/min BUN/Creatinine Ratio 21.2 H (10-20) Glucose 120 H (70-99(Fasting)) mg/dl Calcium 8.8 (8.6-10.3) mg/dl Total Bilirubin 0.8 (0.2-1.0) mg/dl AST 43 H (13-39) U/L ALT 27 (7-52) U/L Alkaline Phosphatase 43 (34-104) U/L Total Protein 6.9 (6.0-8.3) gm/dl Albumin 4.4 (3.4-5.0) gm/dl Globulin 2.5 (2.5-4.0) gm/dl Albumin/Globulin Ratio 1.8 (0.9-2) Medications Administered Current Inpatient Medications Acetaminophen (Acetaminophen 325 Mg Tab) 650 mg PO Q6H PRN PRN Reason: Pain or Fever Stop: 07/22/23 20:29 Amiodarone HCl (Amiodarone 200 Mg Tab) 200 mg PO DAILY [facility] Stop: 07/23/23 08:59 Last Admin: 06/25/23 08:21 Dose: 200 mg Diltiazem HCl (Diltiazem Hcl 120 Mg Capcr) 120 mg PO DAILY [facility] Stop: 07/23/23 08:59 Last Admin: 06/25/23 08:21 Dose: 120 mg Donepezil HCl (Donepezil Hcl 5 Mg Tab) 5 mg PO QPM [facility] Stop: 07/22/23 20:59 Last Admin: 06/24/23 19:18 Dose: Not Given Sodium Chloride (Nss 1000ml) 1,000 mls @ 60 mls/hr IV .[id number] [facility] Stop: 07/23/23 07:59 Last Admin: 06/25/23 06:09 Dose: 60 mls/hr Daptomycin 400 mg/ Syringe 8 mls @ 4 mls/min IV Q48H [facility]; Protocol Stop: 07/07/23 08:59 Last Admin: 06/25/23 08:24 Dose: 4 mls/min Levothyroxine Sodium (Levothyroxine Sodium 25 Mcg Tablet) 25 mcg PO DAILYBB [facility] Stop: 07/23/23 06:29 Last Admin: 06/25/23 05:06 Dose: Not Given Loperamide HCl (Loperamide Hcl 2 Mg Cap) 2 mg PO DAILY PRN PRN Reason: Diarrhea Stop: 07/22/23 20:54 Metoprolol Succinate (Metoprolol Succ 25mg Ext Rel Tab) 25 mg PO DAILY [facility] Stop: 07/23/23 08:59 Last Admin: 06/25/23 08:21 Dose: 25 mg Mirtazapine (Mirtazapine Tab 15 Mg Tab) 15 mg PO HS [facility] Stop: 07/22/23 20:59 Last Admin: 06/24/23 19:18 Dose: Not Given Ondansetron HCl (Ondansetron 4 Mg Od Tab) 4 mg PO Q4H PRN PRN Reason: Nausea And Vomiting Stop: 07/22/23 20:29 Pantoprazole Sodium (Pantoprazole 40 Mg Tab) 40 mg PO DAILYBB [facility] Stop: 07/23/23 06:29 Last Admin: 06/25/23 05:06 Dose: Not Given Polyethylene Glycol (Polyethylene (Miralax) 17 Gm Pack) 17 gm PO DAILY PRN PRN Reason: Constipation Stop: 07/22/23 20:29 Potassium Chloride (Potassium Chloride 10 Meq Tabcr) 10 meq PO DAILY [facility] Stop: 07/23/23 08:59 Last Admin: 06/24/23 07:53 Dose: 10 meq Vitamin D (Cholecalciferol 1,000 Units 25 Mcg Tab) 1,000 units PO QAM [facility] Stop: 07/23/23 08:59 Last Admin: 06/25/23 08:21 Dose: 1,000 units Warfarin Sodium (Warfarin Sod 2 Mg Tab) 2 mg PO [email or web address] [facility] Stop: 07/24/23 15:59 Last Admin: 06/24/23 16:21 Dose: 2 mg Warfarin Sodium (Warfarin Sod 4 Mg Tab) 4 mg PO [email or web address] [facility] Stop: 07/23/23 15:59 Last Admin: 06/23/23 17:09 Dose: 4 mg
--- NOTE | 2023-06-25 09:40 | Post Operative Brief Note ---
Cardiology Brief Post Op Date of Surgery June 25, 2023 Pre & Post Diagnosis Operation Date: 06/25/23 09:00 Preprocedure diagnosis: MRSA bacteremia, sepsis Post procedure diagnosis: No definite vegetation noted on DAVEY. Procedure DAVEY performed today with patient receiving 80 mg of IV propofol as administered by the anesthesia service. Patient found to have severe calcification of the aortic valve. Severe calcification of the mitral annulus also noted. ICD leads well visualized. No definite vegetation observed, but certainly cannot be completely excluded. Left atrial appendage with no thrombus. [place] Karsten Tran DO Soap Maker Neena Velazco Estimated Blood Loss 0 Findings Consistent with Post-Op Diagnosis Anesthesia Type MAC Complications none
--- NOTE | 2023-06-25 09:45 | Anesthesiology Progress Note ---
Date of Service June 25, 2023 Anesthesia Post Procedure Vital Signs Vital Signs: Temp Pulse Resp BP Pulse Ox O2 Del Method O2 Flow Rate 06/25/23 03:05 98.4 F 60 16 118/75 99 Nasal Cannula 3 06/25/23 00:00 98.2 F 60 16 120/70 98 Nasal Cannula 3 06/24/23 20:47 Nasal Cannula 3 06/24/23 20:00 98.6 F 62 16 118/75 97 Nasal Cannula 3 06/24/23 14:43 92 06/24/23 12:00 97.9 F 70 16 118/74 91 Room Air Transfer of Care Handoff Completed per policy Notes Mental Status: alert / awake / arousable and participated in evaluation Patient Amnestic to Procedure: Yes Nausea / Vomiting: adequately controlled Pain: adequately controlled Airway Patency, RR, SpO2: stable & adequate BP & HR: stable & adequate Hydration State: stable & adequate Anesthetic Complications: no major complications apparent and Pt Satisfied with anesthetic care
[2023-06-25] MEDS: POTASSIUM CHLORIDE 10 MEQ TABCR PO SCH (11:56)
--- NOTE | 2023-06-25 15:50 | Communication Note ---
Date of Service: June 25, 2023 I reviewed the patient's clinical history, presentation his hospital stay, findings thus far including transesophageal echocardiogram with Dr. Ma who [place] [facility] [place] We are both in agreement that given no clear-cut evidence of vegetation on transesophageal echocardiogram, and no evidence of suggestion of infection on external inspection of her ICD pocket, but ongoing treatment with antibiotics, to complete 4-week course is indicated, without device extraction at present. Breanne Tran, DO Cardiology
[2023-06-25] MEDS: WARFARIN SOD 4 MG TAB PO SCH (16:00)
[2023-06-25 16:43] LABS: BUN Creatinine Ratio 22.7 (10-20); Creatinine Clr Calc Pharmacy 9.6 ml/min; Est GFR (African American) 15.5 ml/min; Est GFR (Non-African American) 13.4 ml/min; Potassium 3.4 mmol/L (3.5-5.1)
[2023-06-25] MEDS ORDERED: POTASSIUM CHLORIDE 10 MEQ TABCR PO STA (16:57)
--- NOTE | 2023-06-25 16:59 | Communication Note ---
Date of Service: June 25, 2023 Creatinine 3.03 down from 3.3. Potassium 3.4 Increase Normal saline from 60 ml/hr to 85 ml/hr. KCL 10 meq x 1 now. Repeat bmp in am. If becomes volume overloaded , will need to be cautious with diuretic dose given history of hypertrophic cardiomyopathy with LV outflow obstruction and suspected valvular .
--- NOTE | 2023-06-25 17:16 | Critical Care Consultation ---
Date of Consultation June 25, 2023 Assessment & Plan (1) AWA (acute kidney injury): (2) Acute alteration in mental status: (3) Urinary tract infection: (4) Sepsis: (5) HOCM (hypertrophic obstructive cardiomyopathy): (6) PAF (paroxysmal atrial fibrillation): (7) CAD (coronary artery disease): (8) Tricuspid regurgitation: (9) Implantable cardioverter-defibrillator (ICD) at end of battery life: Plan NEURO 1. Hx of mild dementia 2. Debility with malnutrition -- Minimize sedative meds, continue remeron, Donepezil -- Monitor for signs/symp delirum / CAM assessment -- Day/night orientation, sleep protocol CV 1. Hx of CAD, HOCM, pAfib, dual chamber AICD / pacer -- DAVEY on 06/25/2023 without obvious endocarditis, plan for 4 weeks of abx from negative blood cultures -- Cardiology following -- Continue metoprolol, amiodarone, on coumadin RESP -- Wean nc oxygen RENAL 1. AWA on CKD, presumably septic ATN, hydronephrosis ruled out per CT on 06/22/2023 2. Non-gap metabolic acidosis 2/2 ATN -- IVF, strict I/Os, avoid nephrotoxic meds, nephrology consult GI 1. GERD 2. Malnutrition -- Encourage PO intake, supplement as needed -- protonix ID 1. MRSA septicemia -- ID consulted -- DAVEY 06/24 without endocarditis -- Vanco x 4 weeks from negative blood cultures HEME 1. H&H stable ENDO 1. hypothyrodism -- Continue synthroid -- Blood glucose goal 140-180 DVT ppx: on warfarin GI ppx: on ppi History of Present Illness Reason for Consultation: Potential for decompensation Requesting Physician: Dr. Abreu Attending Physician: Odin Abreu MD History of Present Illness 87 F with hx of pAfib, HOCM, NSVT, ACID, CAD, CKD, mild dementia, GERD, and mal nutrition / debility, admitted on 06/22/2323 with altered mental status. Found to have E. coli UTI, colitis on CT scan, and MRSA bacteremia. Current TTE on 06/23/2023 demonstrated EF 40-45% (down from her baseline), image quality reported to be poor without obvious vegitations. She underwent a DAVEY today on 06/25/2023 which demonstrated severe mitral annulus calcification without definate vegetations; the AICD leads were also free of vegetations. Left atrial appendage was noted without thrombus. Also noted severe aortic stenosis. ID consulted and given high risk of AICD removal, plan for 4 weeks of antibiotic therapy. Patient has not been febrile since 06/22/2023. Her Leukocytosis is down- trending. Most recent blood cultures on 06/24/2023 has been NGTD. Last lactic acid on 06/22 was 1.5. She has developed an oliguric AWA on CKD with Cr. 3.04 with stable electrolytes and her diuretics was held, and nephrology was consulted. Critical Care consulted due to MRSA septicemia and potential for decompensation. Allergies Allergy/AdvReac Type Severity Reaction Status Date / Time bee venom protein (honey bee) Allergy Intermediate Hives Verified 06/22/23 17:33 alendronate sodium AdvReac Intermediate Muscle Pain Verified 06/22/23 17:33 [From Fosamax] simvastatin AdvReac Intermediate Muscle Pain Verified 06/22/23 17:33 Home Medications Medication Instructions Recorded Confirmed Type amiodarone 200 mg tablet 200 mg PO DAILY 05/02/20 06/22/23 History levothyroxine 25 mcg capsule 25 mcg PO DAILYBB 05/02/20 06/22/23 History omeprazole 20 mg capsule,delayed 20 mg PO DAILYBB 05/02/20 06/22/23 History release betamethasone dipropionate 0.05 % 1 applic topical BID PRN 06/22/23 06/22/23 History topical cream RASH/ITCHING cholecalciferol (vitamin D3) 25 1,000 unit PO QAM 06/22/23 06/22/23 History mcg (1,000 unit) capsule (Vitamin D3) diltiazem HCl 120 mg capsule,24 120 mg PO DAILY 06/22/23 06/22/23 History hr,extended release donepezil 5 mg tablet 5 mg PO QPM 06/22/23 06/22/23 History furosemide 20 mg tablet 20 mg PO [id number] 06/22/23 06/22/23 History hydrocortisone 2.5 % topical cream 1 applic topical BID PRN RECTAL 06/22/23 06/22/23 History IRRITATION loperamide 2 mg tablet (Imodium 1 mg PO DAILY PRN Diarrhea 06/22/23 06/22/23 History A-D) metoprolol succinate 25 mg 25 mg PO DAILY 06/22/23 06/22/23 History tablet,extended release 24 hr mirtazapine 15 mg tablet 15 mg PO HS 06/22/23 06/22/23 History potassium chloride 10 mEq 10 meq PO DAILY 06/22/23 06/22/23 History capsule,extended release warfarin 2 mg tablet See Rx Instructions .Route .COMPLEX 06/22/23 06/22/23 History Patient History Medical History CAD (coronary artery disease) Cardiomyopathy Heart disease HOCM (hypertrophic obstructive cardiomyopathy) HTN (hypertension) Hyperlipidemia Implantable cardioverter-defibrillator (ICD) at end of battery life pt for ICD generator change; risks discussed; consents signed PAF (paroxysmal atrial fibrillation) Tricuspid regurgitation Family History Mother No problems noted. Social History Smoking Status: Former smoker Second Hand Exposure: No; Do You Dip or Chew Tobacco: No; Tobacco Cessation Education Requested by Patient: No Hx Alcohol Use: No Hx Substance Use: No Preferred Language: Swedish Communication Ability: Effective Natural Remedy Consultant Required: No Beliefs That Will Affect Care: None Current Living Situation: Alone Other Information That Helps Us Care for You: No Feels Safe at Home: Yes Safety Concerns: Feels Safe At This Time Assistive Devices: None Review of Systems Review of Systems: Denies chest pain, dyspnea, palpitations, fevers, chills. Physical Exam Physical Exam: Gen: A/O x 2-3, appears chronically ill, severe malnutrition CV: RRR Resp: CTAB Ext: warm, dry, well perfused Skin: no rashes Results & Data Results & Data Vital Signs (Past 12 Hours) Vital Signs Temp Pulse Resp BP Pulse Ox O2 Del Method O2 Flow Rate 06/25/23 13:34 61 147/73 H 96 Nasal Cannula 3 06/25/23 09:40 60 20 124/67 95 Nasal Cannula 3 06/25/23 09:25 60 20 138/68 96 Nasal Cannula 3 06/25/23 07:45 37 C 62 16 151/70 H 94 Nasal Cannula 3 06/25/23 08:00 Nasal Cannula 3 Coding Level of Care Code 98164 CRITICAL CARE 1ST 30-74M Diagnoses AWA (acute kidney injury) N17.9 Acute alteration in mental status R41.82 Urinary tract infection N39.0; R31.9 Hematuria presence: with hematuria Urinary tract infection type: site unspecified Sepsis A41.9 HOCM (hypertrophic obstructive cardiomyopathy) I42.1 PAF (paroxysmal atrial fibrillation) I48.0 CAD (coronary artery disease) I25.10 Tricuspid regurgitation I07.1 Implantable cardioverter-defibrillator (ICD) at end of battery life Z45.02 Time Spent (min) 60 (3) Urinary tract infection Hematuria presence: with hematuria Urinary tract infection type: site unspecified Qualified Code(s): N39.0 - Urinary tract infection, site not specified; R31.9 - Hematuria, unspecified
[2023-06-25] MEDS ORDERED: VANCOMYCIN CONSULT ACTIVE PRN ×2 (19:38)
[2023-06-25] MEDS: MIRTAZAPINE TAB 15 MG TAB PO SCH (20:23)
[2023-06-25] MEDS: DONEPEZIL HCL 5 MG TAB PO SCH (20:23)
[2023-06-25] MEDS ORDERED: VANCOMYCIN HCL 750 MG in SODIUM CHLORIDE 0.9% 500 ML IV ONE (21:00)
[2023-06-25] MEDS ORDERED: VANCOMYCIN HCL 750 MG in SODIUM CHLORIDE 0.9% 250 ML IV STA (21:07)
[2023-06-26 05:02] LABS: Hematocrit (blood only) 32.2 % (37.0-47.0); Hemoglobin 10.5 g/dl (12.0-16.0); Mean Corpuscular Hemoglobin 30.1 pg (25.0-34.0); Mean Corpuscular Hgb Conc 32.6 g/dL (32.0-36.0); Mean Corpuscular Volume 92.3 fL (80.0-100.0); Mean Platelet Volume 12.3 fL (9.4-12.4); Platelet Count 141 K/uL (130-400); RDW Coefficient of Variation 16.8 % (11.5-14.5); RDW Standard Deviation 57.1 fL (36.4-46.3); Red Blood Count 3.49 M/uL (4.20-5.40); White Blood Count 11.46 K/ul (4.8-10.8)
[2023-06-26 05:03] LABS: BUN Creatinine Ratio 25.2 (10-20); Calcium 8.7 mg/dl (8.6-10.3); Creatinine Clr Calc Pharmacy 10.8 ml/min; Est GFR (African American) 17.9 ml/min; Est GFR (Non-African American) 15.4 ml/min; Magnesium 2.1 mg/dl (1.7-2.4); Phosphorus 3.2 mg/dl (2.5-4.9); Potassium 3.5 mmol/L (3.5-5.1)
[2023-06-26] MEDS: PANTOprazole 40 MG TAB PO SCH (06:08)
[2023-06-26] MEDS: LEVOTHYROXINE SODIUM 25 MCG TABLET PO SCH (06:08)
--- NOTE | 2023-06-26 08:05 | Hospitalist Progress Note ---
Date of Service June 26, 2023 Assessment & Plan (1) Sepsis: Plan Pt is an 87yoF with PMhx significant for PAF, NSVT, HOCM with dual chamber AICD in place, hypothyroidism, Hx of pleural effusions, mild dementia, GERD, malnutrition admitted with altered mental status in the setting of colitis and concerns for stroke. Sepsis secondary to MRSA bacteremia possibly secondary to infected ICD Acute metabolic encephalopathy secondary to above Daughters note that at baseline she volunteers, lives alone. Noted a change in her mental status before being brought in, after she stated she was not feeling well and had episodes of emesis with rigors. Stroke alert was called in the ED after she was noted to be leaning to the left side with left facial droop. Daughters state that they did not notice the changes, do not believe the stroke alert was needed as they state she appears to be at baseline physically. [facility] chart review notes pt was started on Donepezil 5mg in February for mild vascular dementia. Pt AAOx1, to self only - on admission WBC elevated, tachypneic, noted fever with UA suggestive of infection. Head CT, CTA, neck CTA -with no acute changes. Pt with pacemaker- consider MRI brain if pacemaker compatible. CT abd/pelvis noted colitis, splenic infarcts and a hiatal hernia. 06/26 Afebrile, mental status improving Blood cultures: MRSA Repeat blood cultures: MRSA Urine culture: E. coli Infectious disease specialist consulted-Dr. Kael foster. removal of ICD and DAVEY Cardiology service consulted Pt underwent DAVEY (06/25/23) - no vegetations noted but severe calcification of aortic valve, severe calcification of the mitral annulus also noted. Discussed w/ ID - Dr. Ma - as no vegetations seen - cont. with IV Abx treatment for 4 weeks. Daptomycin IV -> was switched to vancomycin overnight (06/26/23) Zosyn IV discontinued-patient having asymptomatic bacteriuria, stool positive for EPEC, no need for antibiotics per ID Asymptomatic bacteriuria Culture growing E. coli Denies urinary symptoms Antibiotics discontinued per ID service Colitis, secondary to EPEC Management IV fluids, electrolytes monitoring No need for antibiotics per ID service Hypoxia Noted oxygen saturations in the 80s in the ED No use of oxygen at home, on 2L currently Chest XRAY notes cardiomegaly -- Wean of oxygen accordingly Hx of pleural effusions --Hold Lasix in light of sepsis PAF, NSVT, HOCM with dual chamber AICD in place Follows with Cardiology Continue amiodarone, metoprolol, diltiazem and Coumadin for a fib anticoagulation INR 1.9 with POC noting a value of 2. Follows with Coumadin clinic, last seen on 06/20 and INR noted to be 1.9. No warfarin dose changes made. Trend INR with AM lab- and adjust warfarin dose as needed with goal 2-3 Continued Coumadin -> now switched to iv heparin Continue amiodarone, metoprolol, diltiazem Moderate malnutrition On remeron, started by pcp Acute kidney injury on CKD Likely secondary to underlying sepsis Creatinine increased from 1.7, now 2.8 -> 3.3 -> 2.7 IV fluids, IV bicarb also started for metab acidosis Nephrology consulted Hypothyroidism Continue levothyroxine GERD Continue home PPI CODE STATUS: Full code DVT prophylaxis: coumadin-> iv heparin Dispo: ICU Usually lives by herself Admission and Anticipated Discharge Date Admission Date: June 22, 2023 Subjective Follow-up for MRSA bacteremia, AWA etc. Seen resting in bed, in [facility] Feels very weak underwent DAVEY yesterday Mental status seem back to baseline Denies chest pain, shortness of breath, palpitations, dizziness No abdominal pain, urinary symptoms Having some diarrhea Cr also elevated - nephrology consulted Close monitoring and treatment in icu Review of Systems Review of Systems: All systems reviewed & are unremarkable except as noted in Subjective Physical Exam Physical Exam: General- thin elderly F in NAD, chronically ill appearing Eyes- anicteric Neck- no JVD Lungs- clear breath sounds bilaterally, no rales/wheezes Heart- normal rate, regular rhythm; + systolic murmur Abdomen- normal bowel sounds, nondistended, soft, nontender Extremities- no pretibial edema, moves extremities Neuro- alert, oriented x 3; speech fluent but very soft, moves extremities Skin- warm & dry Results & Data Results & Data Vital Signs (Past 12 Hours) Vital Signs Temp Pulse Resp BP Pulse Ox O2 Del Method 06/26/23 06:16 166/77 H 06/26/23 06:16 60 28 H 96 06/26/23 06:01 60 26 H 94 06/26/23 06:01 142/61 H 06/26/23 06:00 60 26 H 94 06/26/23 05:45 153/71 H 06/26/23 05:45 60 26 H 95 06/26/23 05:30 161/69 H 06/26/23 05:30 60 25 H 96 06/26/23 05:15 61 28 H 96 06/26/23 05:15 101/77 06/26/23 05:00 60 27 H 94 06/26/23 05:00 156/71 H 06/26/23 04:45 151/70 H 06/26/23 04:45 60 24 94 06/26/23 04:30 60 25 H 94 06/26/23 04:30 159/68 H 06/26/23 04:15 156/69 H 06/26/23 04:15 60 25 H 94 06/26/23 04:00 61 25 H 06/26/23 04:00 157/71 H 06/26/23 03:45 60 25 H 96 06/26/23 03:45 154/68 H 06/26/23 04:00 36.9 C 06/26/23 00:00 37.2 C 06/26/23 03:30 159/73 H 06/26/23 03:30 60 27 H 96 06/26/23 03:15 150/67 H 06/26/23 03:15 60 28 H 93 06/26/23 03:00 65 30 H 97 06/26/23 02:45 151/73 H 06/26/23 02:45 60 26 H 94 06/26/23 02:30 60 27 H 95 06/26/23 02:30 157/71 H 06/26/23 02:15 60 27 H 94 06/26/23 02:15 146/84 H 06/26/23 02:00 60 29 H 96 06/26/23 01:00 60 24 91 06/26/23 00:00 60 25 H 97 06/25/23 23:34 60 25 H 94 06/25/23 23:34 139/70 06/25/23 23:00 65 21 97 06/25/23 22:45 140/56 L 06/25/23 22:45 60 27 H 94 06/25/23 22:30 143/66 H 06/25/23 22:30 60 23 92 06/25/23 22:15 139/102 H 06/25/23 22:15 60 30 H 96 06/25/23 22:00 60 30 H 93 06/25/23 22:00 133/68 06/25/23 21:45 145/69 H 06/25/23 21:45 61 24 93 06/25/23 21:30 150/69 H 06/25/23 21:30 62 31 H 94 06/25/23 21:15 61 30 H 94 06/25/23 21:15 141/72 H 06/25/23 21:01 60 24 94 06/25/23 21:01 126/66 06/25/23 21:00 60 29 H 98 06/25/23 20:46 146/66 H 06/25/23 20:46 65 24 94 06/25/23 20:30 146/73 H 06/25/23 20:30 60 28 H 96 06/25/23 20:16 150/98 H 06/25/23 20:16 62 23 97 06/25/23 21:00 Room Air Laboratory Results 06/26/23 06/26/23 06/26/23 Range/Units 04:36 04:36 04:36 WBC 11.46 H (4.8-10.8) K/ul RBC 3.49 L (4.20-5.40) M/uL Hgb 10.5 L (12.0-16.0) g/dl Hct 32.2 L (37.0-47.0) % MCV 92.3 (80.0-100.0) fL MCH 30.1 (25.0-34.0) pg MCHC 32.6 (32.0-36.0) g/dL RDW Std Deviation 57.1 H (36.4-46.3) fL RDW Coeff of Mikki 16.8 H (11.5-14.5) % Plt Count 141 (130-400) K/uL MPV 12.3 (9.4-12.4) fL Sodium 140 (136-145) mmol/L Potassium 3.5 (3.5-5.1) mmol/L Chloride 113 H (98-107) mmol/L Carbon Dioxide 15 L (21-32) mmol/L Anion Gap 12 H (3-11) BUN 68 H (6-23) mg/dl Creatinine 2.70 H D (0.6-1.2) mg/dl Est Cr Clr Drug Dosing 10.8 ml/min Est GFR ( Amer) 17.9 ml/min Est GFR (Non-Af Amer) 15.4 ml/min BUN/Creatinine Ratio 25.2 H (10-20) Glucose 126 H (70-99(Fasting)) mg/dl Lactate (0.4-2.0) mmol/L Calcium 8.7 (8.6-10.3) mg/dl Phosphorus 3.2 (2.5-4.9) mg/dl Magnesium 2.1 (1.7-2.4) mg/dl Random Vancomycin 10.6 (10-20) mcg/ml 06/26/23 06/25/23 Range/Units 04:36 15:58 WBC (4.8-10.8) K/ul RBC (4.20-5.40) M/uL Hgb (12.0-16.0) g/dl Hct (37.0-47.0) % MCV (80.0-100.0) fL MCH (25.0-34.0) pg MCHC (32.0-36.0) g/dL RDW Std Deviation (36.4-46.3) fL RDW Coeff of Mikki (11.5-14.5) % Plt Count (130-400) K/uL MPV (9.4-12.4) fL Sodium 139 (136-145) mmol/L Potassium 3.4 L (3.5-5.1) mmol/L Chloride 111 H (98-107) mmol/L Carbon Dioxide 17 L (21-32) mmol/L Anion Gap 11 (3-11) BUN 69 H (6-23) mg/dl Creatinine 3.04 H (0.6-1.2) mg/dl Est Cr Clr Drug Dosing 9.6 ml/min Est GFR ( Amer) 15.5 ml/min Est GFR (Non-Af Amer) 13.4 ml/min BUN/Creatinine Ratio 22.7 H (10-20) Glucose 131 H (70-99(Fasting)) mg/dl Lactate 1.2 (0.4-2.0) mmol/L Calcium 9.0 (8.6-10.3) mg/dl Phosphorus (2.5-4.9) mg/dl Magnesium (1.7-2.4) mg/dl Random Vancomycin (10-20) mcg/ml Medications Administered Current Inpatient Medications Acetaminophen (Acetaminophen 325 Mg Tab) 650 mg PO Q6H PRN PRN Reason: Pain or Fever Stop: 07/22/23 20:29 Amiodarone HCl (Amiodarone 200 Mg Tab) 200 mg PO DAILY [facility] Stop: 07/23/23 08:59 Last Admin: 06/25/23 08:21 Dose: 200 mg Diltiazem HCl (Diltiazem Hcl 120 Mg Capcr) 120 mg PO DAILY [facility] Stop: 07/23/23 08:59 Last Admin: 06/25/23 08:21 Dose: 120 mg Donepezil HCl (Donepezil Hcl 5 Mg Tab) 5 mg PO QPM [facility] Stop: 07/22/23 20:59 Last Admin: 06/25/23 20:23 Dose: 5 mg Sodium Chloride (Nss 1000ml) 1,000 mls @ 85 mls/hr IV .[id number] [facility] Stop: 07/23/23 07:59 Last Admin: 06/25/23 21:31 Dose: 85 mls/hr Levothyroxine Sodium (Levothyroxine Sodium 25 Mcg Tablet) 25 mcg PO DAILYBB [facility] Stop: 07/23/23 06:29 Last Admin: 06/26/23 06:08 Dose: 25 mcg Loperamide HCl (Loperamide Hcl 2 Mg Cap) 2 mg PO DAILY PRN PRN Reason: Diarrhea Stop: 07/22/23 20:54 Metoprolol Succinate (Metoprolol Succ 25mg Ext Rel Tab) 25 mg PO DAILY [facility] Stop: 07/23/23 08:59 Last Admin: 06/25/23 08:21 Dose: 25 mg Mirtazapine (Mirtazapine Tab 15 Mg Tab) 15 mg PO HS [facility] Stop: 07/22/23 20:59 Last Admin: 06/25/23 20:23 Dose: 15 mg Miscellaneous Information (Vancomycin Consult Active) 1 each N/A UD PRN PRN Reason: Consult Stop: 07/25/23 19:37 Ondansetron HCl (Ondansetron 4 Mg Od Tab) 4 mg PO Q4H PRN PRN Reason: Nausea And Vomiting Stop: 07/22/23 20:29 Pantoprazole Sodium (Pantoprazole 40 Mg Tab) 40 mg PO DAILYBB [facility] Stop: 07/23/23 06:29 Last Admin: 06/26/23 06:08 Dose: 40 mg Polyethylene Glycol (Polyethylene (Miralax) 17 Gm Pack) 17 gm PO DAILY PRN PRN Reason: Constipation Stop: 07/22/23 20:29 Potassium Chloride (Potassium Chloride 10 Meq Tabcr) 10 meq PO DAILY [facility] Stop: 07/23/23 08:59 Last Admin: 06/25/23 11:56 Dose: Not Given Vitamin D (Cholecalciferol 1,000 Units 25 Mcg Tab) 1,000 units PO QAM [facility] Stop: 07/23/23 08:59 Last Admin: 06/25/23 08:21 Dose: 1,000 units Warfarin Sodium (Warfarin Sod 2 Mg Tab) 2 mg PO [id number]@1600 [facility] Stop: 07/24/23 15:59 Last Admin: 06/24/23 16:21 Dose: 2 mg Warfarin Sodium (Warfarin Sod 4 Mg Tab) 4 mg PO [id number]@1600 [facility] Stop: 07/23/23 15:59 Last Admin: 06/25/23 16:00 Dose: 4 mg
[2023-06-26] MEDS: METOPROLOL SUCC 25MG EXT REL TAB PO SCH (09:09)
[2023-06-26] MEDS: CHOLECALCIFEROL 1,000 UNITS 25 MCG TAB PO SCH (09:09)
[2023-06-26] MEDS: dilTIAZem HCL 120 MG CAPCR PO SCH (09:09)
[2023-06-26] MEDS: POTASSIUM CHLORIDE 10 MEQ TABCR PO SCH (09:09)
[2023-06-26] MEDS: AMIODARONE 200 MG TAB PO SCH (09:55)
[2023-06-26] MEDS: SODIUM CHLORIDE 0.9% 1000ML 1,000 ML IV SCH (09:55)
[2023-06-26] MEDS ORDERED: VANCOMYCIN HCL 750 MG in SODIUM CHLORIDE 0.9% 250 ML IV ONE (10:00)
[2023-06-26] MEDS ORDERED: STAT IV STA (10:04)
[2023-06-26] MEDS ORDERED: POTASSIUM CHLORIDE 20 MEQ/15 ML UDC PO STA (10:05)
[2023-06-26] MEDS ORDERED: Heparin IV Adult Wt-Based Standard *NO* Bolus Protocol IV SCH (10:14)
[2023-06-26] MEDS ORDERED: SODIUM BICARBONATE 8.4% 150 MEQ in DEXTROSE 5% 1,000 ML IV SCH (10:15)
--- NOTE | 2023-06-26 10:35 | Nephrology Consultation ---
Date of Consultation June 26, 2023 Assessment & Plan (1) AWA (acute kidney injury): Creat went from baseline 1.5 to 3+ with oliguria but now creat dropping and making more urine.AWA from combination of Bacteremia and UTI. she is very very tiny and has Sig risk for Pulm edema with HOCM/CHF and . would not suggest more than 50 ml/hr --1 liter of bicarb drip. Now vitals are good so expect further renal recovery. hold diuretics for now. (2) Urinary tract infection: being treated (3) HOCM (hypertrophic obstructive cardiomyopathy): reviewwed cards note and TTE and DAVEY report History of Present Illness Reason for Consultation: AWA Attending Physician: Odin Abreu MD History of Present Illness 87/F with pAfib, HOCM, NSVT, ACID, CAD, CKD 3B baseline creat 1.5 mild dementia, malnutrition / debility, admitted on 06/22/2323 with altered mental status. Found to have E. coli UTI, colitis on CT scan, and MRSA bacteremia but creat was baseline at 1.5 on admission. had TTE on 06/23/2023 --EF 40-45% (down from her baseline).DAVEY on 06/25/2023 which demonstrated severe mitral annulus calcification without definite vegetations. Also had severe aortic stenosis. ID consulted given high risk of AICD removal, plan for 4 weeks of vancomycin therapy. She developed an oliguric AWA on CKD with Cr rising steadily from 1.5 to 3+ within 4 days. Then diuretics was held and iv fluids given. Vital signs are good now. getting Iv fluid--bicarb drip. Now making urine and Creat down trending. ROS---unable to get history because of dementia. Poor historian. Allergies Allergy/AdvReac Type Severity Reaction Status Date / Time bee venom protein (honey bee) Allergy Intermediate Hives Verified 06/22/23 17:33 alendronate sodium AdvReac Intermediate Muscle Pain Verified 06/22/23 17:33 [From Fosamax] simvastatin AdvReac Intermediate Muscle Pain Verified 06/22/23 17:33 Home Medications Medication Instructions Recorded Confirmed Type amiodarone 200 mg tablet 200 mg PO DAILY 05/02/20 06/22/23 History levothyroxine 25 mcg capsule 25 mcg PO DAILYBB 05/02/20 06/22/23 History omeprazole 20 mg capsule,delayed 20 mg PO DAILYBB 05/02/20 06/22/23 History release betamethasone dipropionate 0.05 % 1 applic topical BID PRN 06/22/23 06/22/23 History topical cream RASH/ITCHING cholecalciferol (vitamin D3) 25 1,000 unit PO QAM 06/22/23 06/22/23 History mcg (1,000 unit) capsule (Vitamin D3) diltiazem HCl 120 mg capsule,24 120 mg PO DAILY 06/22/23 06/22/23 History hr,extended release donepezil 5 mg tablet 5 mg PO QPM 06/22/23 06/22/23 History furosemide 20 mg tablet 20 mg PO 3XWK 06/22/23 06/22/23 History hydrocortisone 2.5 % topical cream 1 applic topical BID PRN RECTAL 06/22/23 06/22/23 History IRRITATION loperamide 2 mg tablet (Imodium 1 mg PO DAILY PRN Diarrhea 06/22/23 06/22/23 History A-D) metoprolol succinate 25 mg 25 mg PO DAILY 06/22/23 06/22/23 History tablet,extended release 24 hr mirtazapine 15 mg tablet 15 mg PO HS 06/22/23 06/22/23 History potassium chloride 10 mEq 10 meq PO DAILY 06/22/23 06/22/23 History capsule,extended release warfarin 2 mg tablet See Rx Instructions .Route .COMPLEX 06/22/23 06/22/23 History Patient History Medical History CAD (coronary artery disease) Cardiomyopathy Heart disease HOCM (hypertrophic obstructive cardiomyopathy) HTN (hypertension) Hyperlipidemia Implantable cardioverter-defibrillator (ICD) at end of battery life pt for ICD generator change; risks discussed; consents signed PAF (paroxysmal atrial fibrillation) Tricuspid regurgitation Family History Mother No problems noted. Social History Smoking Status: Former smoker Second Hand Exposure: No; Do You Dip or Chew Tobacco: No; Tobacco Cessation Education Requested by Patient: No Hx Alcohol Use: No Hx Substance Use: No Preferred Language: Bulgarian Communication Ability: Effective Paleology Teacher Required: No Beliefs That Will Affect Care: None Current Living Situation: Alone Other Information That Helps Us Care for You: No Feels Safe at Home: Yes Safety Concerns: Feels Safe At This Time Assistive Devices: None Physical Exam Physical Exam: Cachectic. Dementia +. No o2 and no distress Respiratory: b/l decreased BS but no insp effort. Cardiovascular: RRR. Systolic murmur heard. Gastrointestinal (Abdomen): Soft non tender Skin: No rash Results & Data Vital Signs (Past 12 Hours) Vital Signs Temp Pulse Resp BP Pulse Ox 06/26/23 09:15 165/71 H 06/26/23 09:15 60 25 H 94 06/26/23 09:00 60 15 94 06/26/23 08:46 60 26 H 94 06/26/23 08:46 160/84 H 06/26/23 08:31 60 23 95 06/26/23 08:31 138/73 06/26/23 08:15 60 20 94 06/26/23 08:15 162/74 H 06/26/23 08:00 60 25 H 95 06/26/23 08:00 152/75 H 06/26/23 07:45 60 24 97 06/26/23 07:45 165/79 H 06/26/23 07:30 168/78 H 06/26/23 07:30 60 22 96 06/26/23 07:15 162/72 H 06/26/23 07:15 60 23 95 06/26/23 07:00 60 24 95 06/26/23 07:00 36.4 C L 157/78 H 06/26/23 06:45 60 25 H 96 06/26/23 06:45 164/77 H 06/26/23 06:16 166/77 H 06/26/23 06:16 60 28 H 96 06/26/23 06:01 60 26 H 94 06/26/23 06:01 142/61 H 06/26/23 06:00 60 26 H 94 06/26/23 05:45 153/71 H 06/26/23 05:45 60 26 H 95 06/26/23 05:30 161/69 H 06/26/23 05:30 60 25 H 96 06/26/23 05:15 61 28 H 96 06/26/23 05:15 101/77 06/26/23 05:00 60 27 H 94 08/03/23 05:00 156/71 H 06/26/23 04:45 151/70 H 06/26/23 04:45 60 24 94 06/26/23 04:30 60 25 H 94 06/26/23 04:30 159/68 H 06/26/23 04:15 156/69 H 06/26/23 04:15 60 25 H 94 06/26/23 04:00 61 25 H 06/26/23 04:00 157/71 H 06/26/23 03:45 60 25 H 96 06/26/23 03:45 154/68 H 06/26/23 04:00 36.9 C 06/26/23 00:00 37.2 C 06/26/23 03:30 159/73 H 06/26/23 03:30 60 27 H 96 06/26/23 03:15 150/67 H 06/26/23 03:15 60 28 H 93 06/26/23 03:00 65 30 H 97 06/26/23 02:45 151/73 H 06/26/23 02:45 60 26 H 94 06/26/23 02:30 60 27 H 95 06/26/23 02:30 157/71 H 06/26/23 02:15 60 27 H 94 06/26/23 02:15 146/84 H 06/26/23 02:00 60 29 H 96 06/26/23 01:00 60 24 91 06/26/23 00:00 60 25 H 97 06/25/23 23:34 60 25 H 94 06/25/23 23:34 139/70 06/25/23 23:00 65 21 97 06/25/23 22:45 140/56 L 06/25/23 22:45 60 27 H 94 Laboratory Results reviewed Diagnostic Findings reviewed. (2) Urinary tract infection Hematuria presence: with hematuria Urinary tract infection type: site unspecified Qualified Code(s): N39.0 - Urinary tract infection, site not specified; R31.9 - Hematuria, unspecified
--- NOTE | 2023-06-26 10:42 | Critical Care Progress Note ---
Date of Service June 26, 2023 Assessment & Plan (1) AWA (acute kidney injury): (2) Acute alteration in mental status: (3) Urinary tract infection: (4) Sepsis: (5) HOCM (hypertrophic obstructive cardiomyopathy): (6) PAF (paroxysmal atrial fibrillation): (7) CAD (coronary artery disease): (8) Tricuspid regurgitation: (9) Implantable cardioverter-defibrillator (ICD) at end of battery life: Plan NEURO 1. Hx of mild dementia 2. Debility with malnutrition -- Minimize sedative meds, continue remeron, Donepezil -- Monitor for signs/symp delirum / CAM assessment -- Day/night orientation, sleep protocol CV 1. Hx of CAD, HOCM, pAfib, dual chamber AICD / pacer -- DAVEY on 06/25/2023 without obvious endocarditis but now has persistently positive 2/2 blood cultures on 06/22 and 06/24 for MRSA -- Cardiology following -- Continue metoprolol, amiodarone -- Stop coumadin, start heparin gtt -- Will coordinate with cardiology and ID for possible transfer to tertiary center for AICD removal RESP -- Wean nc oxygen RENAL 1. Non-oliguric AWA on CKD, presumably septic ATN, hydronephrosis ruled out per CT on 06/22/2023 2. Non-gap metabolic acidosis 2/2 ATN -- Start low rate bicarb gtt, strict I/Os, avoid nephrotoxic meds, nephrology consult GI 1. GERD 2. Malnutrition -- Encourage PO intake, supplement as needed -- protonix ID 1. MRSA septicemia -- ID consulted -- DAVEY 06/24 without endocarditis -- Positive 2/2 blood cultures on 06/22 and 06/24. HEME 1. H&H stable ENDO 1. hypothyrodism -- Continue synthroid -- Blood glucose goal 140-180 DVT ppx: on warfarin GI ppx: on ppi Admission and Anticipated Discharge Date Admission Date: June 22, 2023 Subjective 06/26/2023. No acute issues overnight. Blood cultures from 06/24, 2/2 remain persistently positive for MRSA. Abx changed to vanco overnight. Review of Systems Review of Systems: Denies chest pain, dyspnea, dizzines, lightheadedness, nausea / vomiting Physical Exam Physical Exam: GEN: Appears chronically ill, debilitated, frail CV: RRR Resp: CTAB Ext: warm, dry well perfused Skin: no rashes Results & Data Results & Data Vital Signs (Past 12 Hours) Vital Signs Temp Pulse Resp BP Pulse Ox 06/26/23 09:15 165/71 H 06/26/23 09:15 60 25 H 94 06/26/23 09:00 60 15 94 06/26/23 08:46 60 26 H 94 06/26/23 08:46 160/84 H 06/26/23 08:31 60 23 95 06/26/23 08:31 138/73 06/26/23 08:15 60 20 94 06/26/23 08:15 162/74 H 06/26/23 08:00 60 25 H 95 06/26/23 08:00 152/75 H 06/26/23 07:45 60 24 97 06/26/23 07:45 165/79 H 06/26/23 07:30 168/78 H 06/26/23 07:30 60 22 96 06/26/23 07:15 162/72 H 06/26/23 07:15 60 23 95 06/26/23 07:00 60 24 95 06/26/23 07:00 36.4 C L 157/78 H 06/26/23 06:45 60 25 H 96 06/26/23 06:45 164/77 H 06/26/23 06:16 166/77 H 06/26/23 06:16 60 28 H 96 06/26/23 06:01 60 26 H 94 06/26/23 06:01 142/61 H 06/26/23 06:00 60 26 H 94 06/26/23 05:45 153/71 H 06/26/23 05:45 60 26 H 95 06/26/23 05:30 161/69 H 06/26/23 05:30 60 25 H 96 06/26/23 05:15 61 28 H 96 06/26/23 05:15 101/77 06/26/23 05:00 60 27 H 94 06/26/23 05:00 156/71 H 06/26/23 04:45 151/70 H 06/26/23 04:45 60 24 94 06/26/23 04:30 60 25 H 94 06/26/23 04:30 159/68 H 06/26/23 04:15 156/69 H 06/26/23 04:15 60 25 H 94 06/26/23 04:00 61 25 H 06/26/23 04:00 157/71 H 06/26/23 03:45 60 25 H 96 06/26/23 03:45 154/68 H 06/26/23 04:00 36.9 C 06/26/23 00:00 37.2 C 06/26/23 03:30 159/73 H 06/26/23 03:30 60 27 H 96 06/26/23 03:15 150/67 H 06/26/23 03:15 60 28 H 93 06/26/23 03:00 65 30 H 97 06/26/23 02:45 151/73 H 06/26/23 02:45 60 26 H 94 06/26/23 02:30 60 27 H 95 06/26/23 02:30 157/71 H 06/26/23 02:15 60 27 H 94 06/26/23 02:15 146/84 H 06/26/23 02:00 60 29 H 96 06/26/23 01:00 60 24 91 06/26/23 00:00 60 25 H 97 06/25/23 23:34 60 25 H 94 06/25/23 23:34 139/70 06/25/23 23:00 65 21 97 06/25/23 22:45 140/56 L 06/25/23 22:45 60 27 H 94 Coding Level of Care Code 36829 CRITICAL CARE 1ST 30-74M Diagnoses AWA (acute kidney injury) N17.9 Acute alteration in mental status R41.82 Urinary tract infection N39.0; R31.9 Hematuria presence: with hematuria Urinary tract infection type: site unspecified Sepsis A41.9 HOCM (hypertrophic obstructive cardiomyopathy) I42.1 PAF (paroxysmal atrial fibrillation) I48.0 CAD (coronary artery disease) I25.10 Tricuspid regurgitation I07.1 Implantable cardioverter-defibrillator (ICD) at end of battery life Z45.02 Time Spent (min) 35 (3) Urinary tract infection Hematuria presence: with hematuria Urinary tract infection type: site unspecified Qualified Code(s): N39.0 - Urinary tract infection, site not specified; R31.9 - Hematuria, unspecified
[2023-06-26] MEDS ORDERED: HEPARIN SODIUM/DEXTROSE 25,000 UNITS/500 ML BAG IV SCH (11:00)
[2023-06-26 11:44] LABS: Partial Thromboplastin Ratio 1.3; Partial Thromboplastin Time 36.5 Seconds (21.0-31.0)
--- NOTE | 2023-06-26 14:54 | Pharmacy Report ---
Pharmacy PK ABX Note - Date of Service June 26, 2023 - Assessment and Plan Assessment 87 year old F receiving vancomycin for treatment of MRSA bacteremia. Initially on daptomycin, changed to vancomycin on 8/2 PM with cultures from 06/24 remaining positive. SCr 2.7, half life estimating over 24 hours, therefore dosing by levels. Plan Vancomycin * Received 750 mg x 1 8, random level this AM 10.6 * Redose with 750 mg x 1 this AM * Random level ordered for 86 AM Pharmacy will continue to follow and will adjust dose/frequency as necessary. Thank you. Pharmacy has transitioned to AUC monitoring for vancomycin. AUC/XIMENA is the preferred PK/PD target and is associated with decreased risk of nephrotoxicity compared to traditional trough targets.
--- NOTE | 2023-06-26 15:46 | Cardiology Progress Note ---
Date of Service June 26, 2023 Assessment & Plan (1) Sepsis: Plan: 87-year-old frail female presents with sepsis and findings of E. coli urinary tract infection and methicillin resistant Staph aureus bacteremia. Persistently positive blood cultures noted despite IV antibiotic therapy. DAVEY without obvious vegetation. History of hypertrophic obstructive cardiomyopathy Dual-chamber AICD Paroxysmal atrial fibrillation Nonobstructive coronary heart disease noted on cardiac catheterization in 2016 Creatinine trending downward today. Case discussed with critical care team. With persistently positive blood cultures despite antibiotic therapy there are concerns regarding possible infective endocarditis involving either ICD/leads, calcific aortic valve disease, or calcific mitral annular disease. Consider transfer to tertiary care center for further evaluation and treatment. ICU physician will discuss further with infectious disease specialist. (2) Heart disease: (3) Implantable cardioverter-defibrillator (ICD) at end of battery life: (4) PAF (paroxysmal atrial fibrillation): (5) AWA (acute kidney injury): Admission and Anticipated Discharge Date Admission Date: June 22, 2023 Subjective Patient seen examined the bedside. Grandson present. Patient denies chest pain or shortness of breath. Feeling fatigued and washed out. No recurrent fevers. Cultures drawn 06/24/2023 are positive for MRSA. DAVEY performed yesterday demonstrating calcific aortic valve disease with probable severe aortic stenosis. No obvious vegetation. Review of Systems Review of Systems: All systems reviewed & are unremarkable except as noted in Subjective Physical Exam Constitutional: + ill appearing and + thin Respiratory: no respiratory distress, no labored breathing and no retractions Auscultation: no crackles, no rales, no rhonchi and no wheezes Cardiovascular: Rate/Rhythm: regular rate and regular rhythm Heart Sounds: normal S1, normal S2 and + murmur (3/6 systolic ejection murmur) Extremities: no edema Gastrointestinal (Abdomen): Inspection/Auscultation: abdomen normal to inspection; abdomen not distended Percussion/Palpation: abdomen soft; abdomen nontender, no guarding and abdomen not rigid Neurologic: CN's II-XI intact bilaterally and moves all extremities; no focal motor deficits Results & Data Vital Signs (Past 12 Hours) Vital Signs Temp Pulse Resp BP Pulse Ox 06/26/23 15:20 134/63 06/26/23 15:20 60 23 87 L 06/26/23 15:10 60 28 H 93 06/26/23 15:10 142/63 H 08/03/23 15:05 60 25 H 93 06/26/23 15:05 143/82 H 06/26/23 15:00 60 29 H 94 06/26/23 14:53 145/68 H 06/26/23 14:53 61 27 H 93 06/26/23 14:52 146/64 H 06/26/23 14:52 61 28 H 93 06/26/23 14:00 60 25 H 94 06/26/23 14:00 156/73 H 06/26/23 13:50 60 28 H 95 06/26/23 13:50 143/77 H 06/26/23 13:46 151/78 H 06/26/23 13:46 61 29 H 96 06/26/23 13:30 60 23 95 06/26/23 13:30 147/79 H 06/26/23 13:00 60 26 H 94 06/26/23 12:00 60 31 H 78 L 06/26/23 12:00 151/71 H 06/26/23 11:30 154/71 H 06/26/23 11:30 60 28 H 96 06/26/23 11:15 149/79 H 06/26/23 11:15 60 26 H 95 06/26/23 11:00 60 27 H 96 06/26/23 11:00 160/77 H 06/26/23 10:45 146/76 H 06/26/23 10:45 60 25 H 95 06/26/23 10:30 155/86 H 06/26/23 10:30 60 30 H 96 06/26/23 10:15 140/97 06/26/23 10:15 60 30 H 95 06/26/23 10:00 60 31 H 96 06/26/23 10:00 147/78 H 06/26/23 09:45 157/74 H 06/26/23 09:45 60 30 H 95 06/26/23 09:30 156/74 H 06/26/23 09:30 60 29 H 94 06/26/23 09:15 165/71 H 06/26/23 09:15 60 25 H 94 06/26/23 09:00 60 15 94 06/26/23 08:46 60 26 H 94 06/26/23 08:46 160/84 H 06/26/23 08:31 60 23 95 06/26/23 08:31 138/73 06/26/23 08:15 60 20 94 06/26/23 08:15 162/74 H 06/26/23 08:00 60 25 H 95 06/26/23 08:00 152/75 H 06/26/23 07:45 60 24 97 06/26/23 07:45 165/79 H 06/26/23 07:30 168/78 H 06/26/23 07:30 60 22 96 06/26/23 07:15 162/72 H 06/26/23 07:15 60 23 95 06/26/23 07:00 60 24 95 06/26/23 07:00 36.4 C L 157/78 H 06/26/23 06:45 60 25 H 96 06/26/23 06:45 164/77 H 06/26/23 06:16 166/77 H 06/26/23 06:16 60 28 H 96 06/26/23 06:01 60 26 H 94 06/26/23 06:01 142/61 H 06/26/23 06:00 60 26 H 94 06/26/23 05:45 153/71 H 06/26/23 05:45 60 26 H 95 06/26/23 05:30 161/69 H 06/26/23 05:30 60 25 H 96 06/26/23 05:15 61 28 H 96 06/26/23 05:15 101/77 06/26/23 05:00 60 27 H 94 06/26/23 05:00 156/71 H 06/26/23 04:45 151/70 H 06/26/23 04:45 60 24 94 06/26/23 04:30 60 25 H 94 06/26/23 04:30 159/68 H 06/26/23 04:15 156/69 H 06/26/23 04:15 60 25 H 94 06/26/23 04:00 61 25 H 06/26/23 04:00 157/71 H 06/26/23 03:45 60 25 H 96 06/26/23 03:45 154/68 H 06/26/23 04:00 36.9 C Laboratory Results Coagulation 06/26/23 Range/Units 10:58 APTT 36.5 H (21.0-31.0) Seconds CBC 06/26/23 Range/Units 04:36 WBC 11.46 H (4.8-10.8) K/ul RBC 3.49 L (4.20-5.40) M/uL Hgb 10.5 L (12.0-16.0) g/dl Hct 32.2 L (37.0-47.0) % Plt Count 141 (130-400) K/uL Comprehensive Metabolic Panel 06/25/23 06/26/23 Range/Units 15:58 04:36 Sodium 139 140 (136-145) mmol/L Potassium 3.4 L 3.5 (3.5-5.1) mmol/L Chloride 111 H 113 H (98-107) mmol/L Carbon Dioxide 17 L 15 L (21-32) mmol/L BUN 69 H 68 H (6-23) mg/dl Creatinine 3.04 H 2.70 H D (0.6-1.2) mg/dl Glucose 131 H 126 H (70-99(Fasting)) mg/dl Calcium 9.0 8.7 (8.6-10.3) mg/dl Intake and Output 06/26/23 06/26/23 06/26/23 06:59 14:59 22:59 Intake Total 265 / 1265 1651.833 / 1651.833 Output Total 220 / 770 200 / 200 Balance 45 / 495 1451.833 / 1451.833 Intake: IV 265 / 1265 1301.833 / 1301.833 Sodium Chloride 0.9% 1000ML 1, 1036.833 / 1036.833 000 ml @ 85 mls/hr IV .[id number] [facility] Rx#:[id number] Vancomycin HCl 750 mg In Sodium 265 / 265 265 / 265 Chloride 0.9% 250 ml @ 200 mls /hr IV TODAY@1000 ONE Rx#: [id number] Oral 350 / 350 Output: Urine 220 / 770 Urine Amount (Catheter) 200 / 200 Green/Indwelling 200 / 200 Other: Weight 47 kg 47 kg Weight Measurement Method Built in [facility] Patient Weight 06/27/23 06:59 Weight 47 kg
[2023-06-26 19:06] LABS: Partial Thromboplastin Ratio 2.1
[2023-06-26 19:08] LABS: Partial Thromboplastin Time 59.3 Seconds (21.0-31.0)
--- NOTE | 2023-06-27 07:05 | Discharge Summary ---
Date of Service June 26, 2023 Admission HPI Per Admitting Provider Pt is an 87yoF with PMhx significant for PAF, NSVT, HOCM with dual chamber AICD in place, hypothyroidism, Hx of pleural effusions, mild dementia, GERD, malnutrition admitted with altered mental status in the setting of colitis and concerns for stroke. Two daughters present in the room. They note that she said she was not feeling well earlier in the day, then threw up and went upstairs. She then stated that she felt better and was able to go to a birthday alliance party later that day. However, she stated while there that she was not feeling well anymore and they left. Daughter notes that once they got home she had rigors and noted confusion with episodes of emesis once more. They brought her in for further evaluation. They note that at baseline she is able to ambulate without assistance. 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 While in ED triage it was thought that the pt was having a stroke due to her leaning to the left and perceived left facial droop. Daughters state that they d id not notice these symptoms and do not believe she had a stroke as she appears at baseline to them. Admission Exam Per Admitting Provider General: Alert, orientedx1. No acute distress, frail Skin:Appears pale Psych: AAOx1 Neuro: difficulty moving HEENT: NC/AT Chest: pacemaker visible through skin CV: irregular rhythm Resp:no increased effort of breathing Abdomen: Soft, diffusely tender Extremities: No edema in lower extremities bilaterally. Principal Diagnosis MRSA bacteremia AICD placed, hx of HOCM Discharge Exam General- thin elderly F in NAD, chronically ill appearing Eyes- anicteric Neck- no JVD Lungs- clear breath sounds bilaterally, no rales/wheezes Heart- normal rate, regular rhythm; + systolic murmur Abdomen- normal bowel sounds, nondistended, soft, nontender Extremities- no pretibial edema, moves extremities Neuro- alert, oriented x 3; speech fluent but very soft, moves extremities Skin- warm & dry Discharge Data Allergies Allergy/AdvReac Type Severity Reaction Status Date / Time bee venom protein (honey bee) Allergy Intermediate Hives Verified 06/22/23 17:33 alendronate sodium AdvReac Intermediate Muscle Pain Verified 06/22/23 17:33 [From Fosamax] simvastatin AdvReac Intermediate Muscle Pain Verified 06/22/23 17:33 Consultations 06/22/23 18:40 ED Decision to Admit Stat 06/23/23 07:53 Consult Infectious Diseases Routine 06/24/23 12:06 Consult Cardiology Routine 06/24/23 16:21 Consult Anesthesiology Routine 06/25/23 16:01 Consult Nephrology Routine 06/25/23 16:02 Consult [employer] Routine 06/26/23 17:29 Burn CD for patient Stat Procedures Performed Operation Date: 06/25/23 09:00 Actual Procedures p Echo Transesophageal - DO jessica Hawley Echo Doppler Complete - Karsten Tran DO s Echo Color Flow - Karsten Tran DO Ordered Studies 06/22/23 16:33 CT head/brain wo con Stat Findings: The paranasal sinuses and mastoid air cells are clear. The calvarium and skull base are intact. There is no mass, hematoma, midline shift, acute infarct. White matter hypodensity is nonspecific but suggestive of microvascular ischemic change. The ventricles and sulci demonstrate mild age-related involutional changes. Impression: No acute intracranial abnormality. Atrophy and microvascular ischemic changes. 06/22/23 16:34 CT angio head w con Stat CT angio neck with con Stat FINDINGS: There is no mass, hematoma, midline shift, or acute infarct. Visualized intracranial internal carotid arteries, distal vertebral arteries, and basilar artery are widely patent. There is no significant stenosis, occlusion, or aneurysm seen within the bilateral ACAs, MCAs, or stamping mill tender. The major dural venous sinuses are patent. Moderate calcified plaque within the bilateral carotid siphons without significant stenosis. The aortic arch and proximal great vessels are widely patent. There is no significant stenosis, occlusion, or dissection identified within the bilateral common carotid, internal carotid, or vertebral arteries. A left-sided pacemaker is noted. Mild calcified plaque within the bilateral carotid bifurcations. IMPRESSION: 1. No significant stenosis, occlusion, or aneurysm within the [place] of [place]. 2. No significant stenosis, occlusion, or dissection identified within the carotid or vertebral arteries. 06/22/23 16:39 CT abd pelvis IV con only Stat FINDINGS: Left basilar linear densities consistent with subsegmental atelectasis. The heart is enlarged. Mild pulmonary vascular congestion is noted at the lung bases. No pneumothorax. Pacemaker wires are partially visualized. There is a moderate hiatus hernia . No pneumoperitoneum. No pneumatosis. No acute fractures identified. Dense mitral annulus calcifications are present. The main portal vein is patent. The liver, gallbladder, pancreas, and adrenal glands are unremarkable. Renal sinus calcifications are likely vascular. The kidneys enhance normally. No hydronephrosis. A few small peripheral wedge-shaped hypodensities within the spleen. These favor small splenic infarcts. No re troperitoneal lymphadenopathy. Severe calcified plaque within the normal caliber abdominal aorta and iliac/femoral arteries the bladder is unremarkable. No pelvic free fluid. The uterus is surgically absent. Colonic diverticulosis. No evidence for acute diverticulitis. Fluid-filled loops of large and small bowel. No dilated loops of bowel to suggest obstruction. Mild circumferential thickening of the colon. The small bowel loops appear to be slightly thickened. Findings suggest a nonspecific enterocolitis. IMPRESSION: 1. Mildly thickened loops of large and small bowel seen throughout the abdomen. This is consistent with a nonspecific enterocolitis. 2. A few small peripheral hypodensities within the spleen. 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 There are 3. No evidence for bowel obstruction. 4. Moderate hiatus hernia. 5. Cardiomegaly with mild congestive change. 6. Colonic diverticulosis. No evidence for acute diverticulitis. Hospital Course (1) Sepsis: Plan Pt is an 87yoF with PMhx significant for PAF, NSVT, HOCM with dual chamber AICD in place, hypothyroidism, Hx of pleural effusions, mild dementia, GERD, malnutrition admitted with altered mental status in the setting of colitis and concerns for stroke. Sepsis secondary to MRSA bacteremia possibly secondary to infected ICD Acute metabolic encephalopathy secondary to above Daughters note that at baseline she volunteers, lives alone. Noted a change in her mental status before being brought in, after she stated she was not feeling well and had episodes of emesis with rigors. Stroke alert was called in the ED after she was noted to be leaning to the left side with left facial droop. Daughters state that they did not notice the changes, do not believe the stroke alert was needed as they state she appears to be at baseline physically. [facility] chart review notes pt was started on Donepezil 5mg in February for mild vascular dementia. Pt AAOx1, to self only - on admission WBC elevated, tachypneic, noted fever with UA suggestive of infection. Head CT, CTA, neck CTA -with no acute changes. Pt with pacemaker- consider MRI brain if pacemaker compatible. CT abd/pelvis noted colitis, splenic infarcts and a hiatal hernia. 06/26 Afebrile, mental status improving Blood cultures: MRSA Repeat blood cultures: MRSA Urine culture: E. coli Infectious disease specialist consulted-Dr. Scruggs Recommend poss. removal of ICD and DAVEY Cardiology service consulted Pt underwent DAVEY (06/25/23) - no vegetations noted but severe calcification of aortic valve, severe calcification of the mitral annulus also noted. Discussed w/ ID - Dr. Ma - as no vegetations seen - cont. with IV Abx treatment for 4 weeks. Daptomycin IV -> was switched to vancomycin overnight (06/26/23) Zosyn IV discontinued-patient having asymptomatic bacteriuria, stool positive for EPEC, no need for antibiotics per ID 06/26/23 - because of persistent MRSA bacteremia, discussed again w/ director [place], ID and cardiology - recommend transfer to tertiary center - possible icd removal. Pt was transferred to [facility] for further evaluation and care. Asymptomatic bacteriuria Culture growing E. coli Denies urinary symptoms Antibiotics discontinued per ID service Colitis, secondary to EPEC Management IV fluids, electrolytes monitoring No need for antibiotics per ID service Hypoxia Noted oxygen saturations in the 80s in the ED No use of oxygen at home, on 2L currently Chest XRAY notes cardiomegaly -- Wean of oxygen accordingly Hx of pleural effusions --Hold Lasix in light of sepsis PAF, NSVT, HOCM with dual chamber AICD in place Follows with Cardiology Continue amiodarone, metoprolol, diltiazem and Coumadin for a fib anticoagulation INR 1.9 with POC noting a value of 2. Follows with Coumadin clinic, last seen on 06/20 and INR noted to be 1.9. No warfarin dose changes made. Trend INR with AM lab- and adjust warfarin dose as needed with goal 2-3 Continued Coumadin -> now switched to iv heparin Continue amiodarone, metoprolol, diltiazem Moderate malnutrition On remeron, started by pcp Acute kidney injury on CKD Likely secondary to underlying sepsis Creatinine increased from 1.7, now 2.8 -> 3.3 -> 2.7 IV fluids, IV bicarb also started for metab acidosis Nephrology consulted Hypothyroidism Continue levothyroxine GERD Continue home PPI Total Time Total Time Spent Total Time Spent (In Minutes): 40 Discharge Plan Discharge Items Patient Disposition: Transfer Acute Care Hospital Reason For Visit: CONFUSION Discharge Diagnosis: MRSA bacteremia AICD placed, hx of HOCM Activity: Per Instructions section Non-emergency contact: Specialist and Nutrition Services Associate Call non-emergency contact if: you have any medication questions and your symptoms worsen Follow-up/Referrals: Omar Milton MD [Primary Care Provider] - Diet: Regular and Lactose Intolerant Diet Texture: Easy to Chew Addtl Attending Provider Instructions: Patient has persistent MRSA bacteremia, AICD placed for history of HOCM. After discussing with infectious disease doctor, cardiology and director [place] [employer], recomm ended to remove ICD, as concern for infective endocarditis. Patient was accepted to [facility] for further evaluation and care. Pending Studies at Discharge: Yes Studies:: repeat blood cultures Stand-Alone Forms: My [facility] Skilled Items Patient informed of condition?: Yes DNR: No Discharge Level of Care: Other Communicable Disease: No Discharge Prognosis: Other Lines: Peripheral IV Urinary Catheter: Yes Medications and DC Order Prescriptions: Continued amiodarone 200 mg Tablet 200 mg PO DAILY omeprazole 20 mg Capsule,Delayed Release(Dr/Ec) 20 mg PO DAILYBB levothyroxine 25 mcg Capsule 25 mcg PO DAILYBB potassium chloride 10 mEq Capsule, Extended Release 10 meq PO DAILY donepezil 5 mg tablet 5 mg PO QPM loperamide [Imodium A-D] 2 mg Tablet 1 mg PO DAILY PRN (Reason: Diarrhea) diltiazem HCl 120 mg capsule,extended release 24 hr 120 mg PO DAILY warfarin 2 mg Tablet See Rx Instructions .ROUTE .COMPLEX Rx Instructions: 06/20/23--TAKES 2 MG ON SUN, TUES, THURS, & SAT, THEN 4 MG ON MON, WED, & FRI. betamethasone dipropionate 0.05 % Cream 1 applic TOPICAL BID PRN (Reason: RASH/ITCHING) hydrocortisone 2.5 % Cream 1 applic TOPICAL BID PRN (Reason: RECTAL IRRITATION) furosemide 20 mg tablet 20 mg PO [id number] Rx Instructions: TAKES MON, WED, & FRI. WITH ADDITIONAL DOSE NECESSARY PER YOUR DOCTOR. mirtazapine 15 mg tablet 15 mg PO HS metoprolol succinate 25 mg tablet extended release 24 hr 25 mg PO DAILY cholecalciferol (vitamin D3) [Vitamin D3] 25 mcg (1,000 unit) Capsule 1,000 unit PO QAM Discharge Orders: Discharge Order (Routine); Ordered 06/26/23 Ordered By: Odin Abreu Admission Data Admit Date/Time: 06/22/23 18:43 Attending Provider: Odin Abreu Admit Provider: Radha Stafford Primary Care Provider: Omar Milton Other Providers: Melva Broderick ; Gerry Bishop ; [facility] ; Radha Stafford ; Frank Jenkins ; Cheyanne Hodges ; Nghia Scruggs I. ; Bao Ma II ; Anika Carter ; Omar Augustin ; Zach Ortiz ; Doni Gordon ; Karsten Tran ; Isiah Belle ; Carlo Doyle ; Ernst Carrasco Other Interventions: Discharge Summary Assessment (RN) Last Done: 06/26/23 19:25
== END 2023-06-26 20:20 | disposition short-term general hospital (02) | DRG 314 ==
LOC: ED 16:07 → 2W 18:43 → SUATTDRO 18:43 → 2W 19:59 → 4W 21:45 → 1E 06-23 03:55
DX: G93.41 Metabolic encephalopathy; A04.0 Enteropathogenic Escherichia coli infection; Z87.891 Personal history of nicotine dependence; E03.9 Hypothyroidism, unspecified; K21.9 Gastro-esophageal reflux disease without esophagitis; Z95.810 Presence of automatic (implantable) cardiac defibrillator; A41.02 Sepsis due to Methicillin resistant Staphylococcus aureus; N17.0 Acute kidney failure with tubular necrosis; I48.0 Paroxysmal atrial fibrillation; N18.9 Chronic kidney disease, unspecified; Z79.890 Hormone replacement therapy; N39.0 Urinary tract infection, site not specified; E87.20 Acidosis, unspecified; E44.0 Moderate protein-calorie malnutrition; Z79.01 Long term (current) use of anticoagulants; F03.A0 Unspecified dementia, mild, without behavioral disturbance, psychotic disturbance, mood disturbance, and anxiety; Z68.1 Body mass index [BMI] 19.9 or less, adult; I25.10 Atherosclerotic heart disease of native coronary artery without angina pectoris; I47.1 Supraventricular tachycardia; I42.1 Obstructive hypertrophic cardiomyopathy; Y71.2 Prosthetic and other implants, materials and accessory cardiovascular devices associated with adverse incidents; T82.7XXA Infection and inflammatory reaction due to other cardiac and vascular devices, implants and grafts, initial encounter; R65.20 Severe sepsis without septic shock; I12.9 Hypertensive chronic kidney disease with stage 1 through stage 4 chronic kidney disease, or unspecified chronic kidney disease; Y92.019 Unspecified place in single-family (private) house as the place of occurrence of the external cause; I36.1 Nonrheumatic tricuspid (valve) insufficiency; R09.02 Hypoxemia

== ENCOUNTER 2023-07-06 11:09 | Inpatient (IN) ==
--- NOTE | 2023-07-06 11:25 | Emergency Department Note ---
Impression & Plan Acute hypoxemic respiratory failure, Aspiration pneumonia of right lung, Elevated troponin ED Provider Note Name: BETY PITTS Age: 87 Sex: F Arrives Via: Ambulance Informant: Patient (poor historian), her rehab physician, her family, records ED Provider: Mo Ortega MD Chief Complaint: Respiratory distress Impression: As per impressions above Medical Decision Makin-year-old female arrives for evaluation of acute respiratory distress. Patient has been hospitalized essentially for the last 2 weeks following diagnosis of MRSA bacteremia uncertain etiology. She had an ICD placed many years ago with thought that that this may be infected however it was felt to be too dangerous to remove. She has been on vancomycin for the last 2 weeks or so as well. Currently in rehab facility. This morning patient with rapidly worsening respiratory distress. Requiring increasing oxygenation. Attempted Lasix at nursing facility without improvement. Patient arrives in respiratory failure requiring BiPAP. This did seem to help her significantly and she is tolerating it quite well. Vital signs are relatively stable. She was given 500 mL IV fluids for some dehydration. We will hold off on further 30/kg IV fluid bolus as she has a history of cardiomyopathy and I am worried about fluid overload. Her chest x-ray reveals a right sided pneumonia I suspect this is aspiration given her history. Seems unlikely that this would be MRSA given she has been on vancomycin. Cultures had been obtained along with a lactic acid and then she was given IV Zosyn. Laboratory findings remarkable for moderately elevated white blood cell count from baseline, normal lactate, normal procalcitonin. She does have a significantly elevated troponin. No clear evidence of ACS on EKG. Suspect troponin is type II NSTEMI secondary to significant hypoxia and work of breathing with demand mismatch. Hold off on anticoagulation at this time. Hospitalist in to evaluate further. Prior Medical Record and Triage/Nursing Notes reviewed by Me Extensive external chart review including recent discharge summary as well as outpatient records from the [facility]. Differentials:Pneumonia, mucous plugging, pneumothorax, COPD, CHF, infections, cardiac ischemia, pulmonary embolism, musculoskeletal, gastrointestinal, as well as other pathologies. Vital Signs: reviewed and remarkable for hypoxia Interventions: Normal saline bolus 500 mL IV, Zosyn 4.5 g IV Labs:Reviewed and remarkable for elevated white blood cell count, elevated troponin, all other labs reviewed by me Imagin view chest x-ray as per my interpretation there is a right upper and middle lobe infiltrate new from previous chest x-ray. There is no overt fluid overload appreciated. EKG:As per my interpretation. Indication respiratory failure. AV dual paced rhythm ectopy or ischemia. When compared to EKG of June 22, 2023 she is no longer in A-fib. QTc today is 567. Cardiac/Tele Monitoring: Cardiac Monitoring: An Order was placed for continuous cardiac monitoring. The monitor shows a rate of 80 with a paced rhythm. Consults:[facility] hospitalist Plan: Disposition:Hospitalization. Condition: Critical History of Present Illness:87-year-old female arrives for evaluation of illness. Patient with recent hospitalization diagnosed with sepsis secondary to MRSA. DAVEY at that time did not reveal any vegetations. She was sent to [facility] for further evaluation of possible ICD removal. [facility] Since this morning patient with increasing w orsening respiratory failure. Started on 2 L nasal cannula and is increased to 6. Increasing confusion and worsening mental status. Patient sent over to ER for further evaluation prior to arrival she received 40 of Lasix IV without much improvement. Reportedly full. Patient states she feels short of breath but denies all other symptoms. Of note patient's course at [facility] had negative blood cultures and thus plan was to continue IV antibiotics for 6 weeks and not remove ICD as it is too risky. Past History:See Below Home Medications:See Below Allergies:Simvastatin, Fosamax, honeybees Vitals:Blood Pressure: 130/70, Pulse 130, RR 35, T 36.5C, O2 85% on 6L Physical Exam: GENERAL: Patient is unwell appearing and in severe distress. Patient is dyspneic she is unwell appearing and she is moderately confused mildly dehydrated. RESPIRATORY: Significant dyspnea and tachypnea with crackles throughout CARDIOVASCULAR: Tachycardia.Systolic murmur appreciated GASTROINTESTINAL: Abdomen soft, non-tender, no peritonitis. EXTREMITIES: Normal motion all extremities, no cyanosis, no edema. NEUROLOGIC: Patient somnolent but awakens to answer yes or no for falling back to sleep. No focal deficit appreciated though exam difficult SKIN: No rash, no jaundice, no diaphoresis. PSYCH: Appropriate GCS: 14 ED Course: Times/Reassessments: Many repeat evaluations of patient with family at bedside. Patient is far improved with BiPAP though still quite ill-appearing. Hospitalist in to evaluate further Critical Care: I have personally spent 35 minutes of critical care time in the direct management of this patient. Acute hypoxic respiratory failure. This was a life/limb threatening event. This 35 minutes is in excess of all separately billable procedures. Mo Ortega MD Past Med/Surg History Medical History CAD (coronary artery disease) Cardiomyopathy Heart disease HOCM (hypertrophic obstructive cardiomyopathy) HTN (hypertension) Hyperlipidemia Implantable cardioverter-defibrillator (ICD) at end of battery life pt for ICD generator change; risks discussed; consents signed PAF (paroxysmal atrial fibrillation) Tricuspid regurgitation Family History Mother No problems noted. Social History Smoking Status: Former smoker Second Hand Exposure: No; Do You Dip or Chew Tobacco: No; Hx Alcohol Use: No Hx Substance Use: No Preferred Language: Albanian Communication Ability: Effective Bit Shaver Required: No Beliefs That Will Affect Care: None Current Living Situation: Alone Feels Safe at Home: Yes Assistive Devices: None Allergies Allergies Allergy/AdvReac Type Severity Reaction Status Date / Time bee venom protein (honey bee) Allergy Intermediate Hives Verified 06/22/23 17:33 alendronate sodium AdvReac Intermediate Muscle Pain Verified 06/22/23 17:33 [From Fosamax] simvastatin AdvReac Intermediate Muscle Pain Verified 06/22/23 17:33 Home Meds Home Medications Medication Instructions Recorded Confirmed amiodarone 200 mg tablet 200 mg PO DAILY 05/02/20 07/06/23 levothyroxine 25 mcg capsule 25 mcg PO DAILYBB 05/02/20 07/06/23 cholecalciferol (vitamin D3) 25 1,000 unit PO QAM 06/22/23 07/06/23 mcg (1,000 unit) capsule (Vitamin D3) diltiazem HCl 120 mg capsule,24 120 mg PO DAILY 06/22/23 07/06/23 hr,extended release donepezil 5 mg tablet 5 mg PO QPM 06/22/23 07/06/23 hydrocortisone 2.5 % topical cream 1 applic topical BID PRN RECTAL 06/22/23 07/06/23 IRRITATION metoprolol succinate 25 mg 25 mg PO DAILY 06/22/23 07/06/23 tablet,extended release 24 hr mirtazapine 15 mg tablet 7.5 mg PO HS 06/22/23 07/06/23 warfarin 2 mg tablet See Rx Instructions .Route .COMPLEX 06/22/23 07/06/23 albuterol 90 mcg/actuation aerosol 90 mcg inhalation QID 07/06/23 07/06/23 inhaler docusate sodium 100 mg capsule 100 mg PO BID 07/06/23 07/06/23 furosemide 40 mg/4 mL oral solution 40 mg PO QAM 07/06/23 07/06/23 ondansetron 4 mg disintegrating 4 mg translingual Q4 PRN Nausea 07/06/23 07/06/23 tablet And Vomiting pantoprazole 40 mg tablet,delayed 40 mg PO DAILY 07/06/23 07/06/23 release vancomycin 750 mg/250 mL in 0.9 % 750 mg IV DAILY 07/06/23 07/06/23 sodium chloride intravenous solution Results & Data (ED) Vital Signs Vital Signs - 24 hr 07/06/23 11:20 07/06/23 11:20 07/06/23 11:25 Temperature 36.5 C Temperature Source Oral Pulse Rate 76 76 Respiratory Rate 26 H 29 H Respiratory Effort / Characteristics Labored Short of Breath Spontaneous Respiratory Pattern Tachypnea Tachypnea Blood Pressure 132/88 Blood Pressure Mean 102 Blood Pressure Position Lying Pulse Oximetry 92 95 Oxygen Delivery Method Oxymask BiPAP Oxygen Flow Rate 8 Fraction of Inspired Oxygen 40 Sepsis Recent Fever Within 48 Hours No Sepsis New/Unexplained Change in Mental Status No Sepsis Action Taken by Nursing No Action Required 07/06/23 11:34 07/06/23 11:38 07/06/23 11:41 Temperature Temperature Source Pulse Rate 76 75 Respiratory Rate 24 Respiratory Effort / Characteristics Respiratory Pattern Blood Pressure Blood Pressure Mean Blood Pressure Position Pulse Oximetry 92 87 L Oxygen Delivery Method BiPAP Oxymask Oxygen Flow Rate 6 Fraction of Inspired Oxygen Sepsis Recent Fever Within 48 Hours Sepsis New/Unexplained Change in Mental Status Sepsis Action Taken by Nursing Laboratory Data 07/06/23 11:27 07/06/23 11:27 Lab Results 07/06/23 07/06/23 07/06/23 Range/Units 11:27 11:27 11:27 WBC 16.48 H (4.8-10.8) K/ul RBC 3.48 L (4.20-5.40) M/uL Hgb 10.3 L (12.0-16.0) g/dl Hct 32.2 L (37.0-47.0) % MCV 92.5 (80.0-100.0) fL MCH 29.6 (25.0-34.0) pg MCHC 32.0 (32.0-36.0) g/dL RDW Std Deviation 58.7 H (36.4-46.3) fL RDW Coeff of Mikki 17.4 H (11.5-14.5) % Plt Count 335 (130-400) K/uL MPV 10.5 (9.4-12.4) fL Immature Gran % (Auto) 1.3 % Neut % (Auto) 87.5 % Lymph % (Auto) 3.8 % [place] % (Auto) 6.3 % Eos % (Auto) 0.7 % Baso % (Auto) 0.4 % Neut # (Auto) 14.44 H (1.40-6.50) K/uL Lymph # (Auto) 0.63 L (1.2-3.4) K/uL [place] # (Auto) 1.03 H (0.11-0.59) K/uL Eos # (Auto) 0.11 (0-0.50) K/uL Baso # (Auto) 0.06 (0-0.2) K/uL Immature Gran # (Auto) 0.21 H (0.01-0.20) K/uL Sodium 140 (136-145) mmol/L Potassium 4.1 (3.5-5.1) mmol/L Chloride 109 H (98-107) mmol/L Carbon Dioxide 20 L (21-32) mmol/L Anion Gap 11 (3-11) BUN 34 H (6-23) mg/dl Creatinine 1.81 H (0.6-1.2) mg/dl Est Cr Clr Drug Dosing 16.3 ml/min Est GFR ( Amer) 29.0 ml/min Est GFR (Non-Af Amer) 25.1 ml/min BUN/Creatinine Ratio 18.8 (10-20) Glucose 113 H (70-99(Fasting)) mg/dl Lactate 1.6 (0.4-2.0) mmol/L Calcium 8.8 (8.6-10.3) mg/dl Magnesium 1.9 (1.7-2.4) mg/dl Total Bilirubin 1.1 H (0.2-1.0) mg/dl Direct Bilirubin 0.3 H (0-0.2) mg/dl AST 40 H (13-39) U/L ALT 20 (7-52) U/L Alkaline Phosphatase 109 H (34-104) U/L Troponin I High Sens 331.8 H* (0-14) pg/ml Total Protein 6.9 (6.0-8.3) gm/dl Albumin 3.7 (3.4-5.0) gm/dl Procalcitonin (0-0.5) ng/ml Adenovirus (PCR) (NotDetected) B. pertussis DNA (PCR) (NotDetected) B.parapertussis DNA PCR (NotDetected) C. pneumoniae DNA (PCR) (NotDetected) Coronavirus OC43 (PCR) (NotDetected) Coronavirus HKU1 (PCR) (NotDetected) Coronavirus 229E (PCR) (NotDetected) SARS-CoV-2 (PCR) (NotDetected) Coronavirus NL63 (PCR) (NotDetected) Human Metapneumovir PCR (NotDetected) Influenza Type A (PCR) (NotDetected) Influenza Type B (PCR) (NotDetected) M. pneumoniae (PCR) (NotDetected) Parainfluenza 1 (PCR) (NotDetected) Parainfluenza 2 (PCR) (NotDetected) Parainfluenza 3 (PCR) (NotDetected) Parainfluenza 4 (PCR) (NotDetected) RSV (PCR) (NotDetected) Entero/Rhino (PCR) (NotDetected) 07/06/23 07/06/23 Range/Units 11:27 11:31 WBC (4.8-10.8) K/ul RBC (4.20-5.40) M/uL Hgb (12.0-16.0) g/dl Hct (37.0-47.0) % MCV (80.0-100.0) fL MCH (25.0-34.0) pg MCHC (32.0-36.0) g/dL RDW Std Deviation (36.4-46.3) fL RDW Coeff of Mikki (11.5-14.5) % Plt Count (130-400) K/uL MPV (9.4-12.4) fL Immature Gran % (Auto) % Neut % (Auto) % Lymph % (Auto) % [place] % (Auto) % Eos % (Auto) % Baso % (Auto) % Neut # (Auto) (1.40-6.50) K/uL Lymph # (Auto) (1.2-3.4) K/uL [place] # (Auto) (0.11-0.59) K/uL Eos # (Auto) (0-0.50) K/uL Baso # (Auto) (0-0.2) K/uL Immature Gran # (Auto) (0.01-0.20) K/uL Sodium (136-145) mmol/L Potassium (3.5-5.1) mmol/L Chloride (98-107) mmol/L Carbon Dioxide (21-32) mmol/L Anion Gap (3-11) BUN (6-23) mg/dl Creatinine (0.6-1.2) mg/dl Est Cr Clr Drug Dosing ml/min Est GFR ( Amer) ml/min Est GFR (Non-Af Amer) ml/min BUN/Creatinine Ratio (10-20) Glucose (70-99(Fasting)) mg/dl Lactate (0.4-2.0) mmol/L Calcium (8.6-10.3) mg/dl Magnesium (1.7-2.4) mg/dl Total Bilirubin (0.2-1.0) mg/dl Direct Bilirubin (0-0.2) mg/dl AST (13-39) U/L ALT (7-52) U/L Alkaline Phosphatase (34-104) U/L Troponin I High Sens (0-14) pg/ml Total Protein (6.0-8.3) gm/dl Albumin (3.4-5.0) gm/dl Procalcitonin 0.38 (0-0.5) ng/ml Adenovirus (PCR) Not Detected (NotDetected) B. pertussis DNA (PCR) Not Detected (NotDetected) B.parapertussis DNA PCR Not Detected (NotDetected) C. pneumoniae DNA (PCR) Not Detected (NotDetected) Coronavirus OC43 (PCR) Not Detected (NotDetected) Coronavirus HKU1 (PCR) Not Detected (NotDetected) Coronavirus 229E (PCR) Not Detected (NotDetected) SARS-CoV-2 (PCR) Not Detected (NotDetected) Coronavirus NL63 (PCR) Not Detected (NotDetected) Human Metapneumovir PCR Not Detected (NotDetected) Influenza Type A (PCR) Not Detected (NotDetected) Influenza Type B (PCR) Not Detected (NotDetected) M. pneumoniae (PCR) Not Detected (NotDetected) Parainfluenza 1 (PCR) Not Detected (NotDetected) Parainfluenza 2 (PCR) Not Detected (NotDetected) Parainfluenza 3 (PCR) Not Detected (NotDetected) Parainfluenza 4 (PCR) Not Detected (NotDetected) RSV (PCR) Not Detected (NotDetected) Entero/Rhino (PCR) Not Detected (NotDetected) Administered Medications Discontinued Medications Sodium Chloride (Nss) 500 mls @ 999 mls/hr IV .Q31M ONE Stop: 07/06/23 12:13 Last Admin: 07/06/23 12:02 Dose: 999 mls/hr Documented By: MMLori Piperacillin Sod/Tazobactam Sod (Zosyn) 4.5 gm in 120 mls @ 240 mls/hr IV NOW ONE Stop: 07/06/23 12:12 Last Infusion: 07/06/23 12:35 Dose: 0 mls/hr Documented By: Admin: 07/06/23 11:59 Dose: 240 mls/hr Documented By: ARABELLA Imaging Data Radiologist's Impression: Chest X-Ray 07/06/23 11:19 XR chest 1V portable CLINICAL HISTORY: Sepsis TECHNIQUE: Single frontal radiograph of the chest was obtained. Comparison: Comparison is made to chest radiograph 06/24/2023 FINDINGS: Pacemaker defibrillator is seen. Cardiomegaly is noted. The aortic arch is calcified. Right lung airspace opacities are seen, new from prior exam. Small bilateral pleural effusions are seen. IMPRESSION: 1. Interval development of right airspace opacities compatible with pneumonia/aspiration. 2. Small bilateral pleural effusions. 3. Stable cardiomegaly. ACT 112: Negative or not required by law. Electronically signed by: Kayode Ann M.D. 07/06/2023 11:36 AM Discharge Plan Visit Data Chief Complaint: Shortness of Breath/Dyspnea ED Provider: Mo Ortega Discharge Problem: Acute hypoxemic respiratory failure, Aspiration pneumonia of right lung, Elevated troponin Forms Stand Alone Forms: My [facility] Prescriptions Prescriptions: No Action amiodarone 200 mg Tablet 200 mg PO DAILY levothyroxine 25 mcg Capsule 25 mcg PO DAILYBB donepezil 5 mg tablet 5 mg PO QPM diltiazem HCl 120 mg capsule,extended release 24 hr 120 mg PO DAILY warfarin 2 mg Tablet See Rx Instructions .ROUTE .COMPLEX Rx Instructions: 06/20/23--TAKES 2 MG ON SUN, TU, TH, & SAT, THEN 4 MG ON MON, WED, & FRI. hydrocortisone 2.5 % Cream 1 applic TOPICAL BID PRN (Reason: RECTAL IRRITATION) mirtazapine 15 mg tablet 7.5 mg PO HS metoprolol succinate 25 mg tablet extended release 24 hr 25 mg PO DAILY cholecalciferol (vitamin D3) [Vitamin D3] 25 mcg (1,000 unit) Capsule 1,000 unit PO QAM pantoprazole 40 mg Tablet,Delayed Release (Dr/Ec) 40 mg PO DAILY ondansetron 4 mg Tablet,Disintegrating 4 mg translingual Q4 PRN (Reason: Nausea And Vomiting) furosemide 40 mg/4 mL Solution 40 mg PO QAM vancomycin in 0.9 % sodium chl 750 mg/250 mL Solution 750 mg IV DAILY docusate sodium 100 mg Capsule 100 mg PO BID albuterol 90 mcg/actuation Aerosol 90 mcg INHALATION QID Referrals Referrals: Omar Milton MD [Primary Care Provider] - Aspiration pneumonia of right lung Qualifiers: Aspiration pneumonia type: unspecified Lung location: unspecified part of lung Qualified Code(s): J69.0 - Pneumonitis due to inhalation of food and vomit
--- NOTE | 2023-07-06 11:38 | XRay Report ---
XR chest 1V portable CLINICAL HISTORY: Sepsis TECHNIQUE: Single frontal radiograph of the chest was obtained. Comparison: Comparison is made to chest radiograph 06/24/2023 FINDINGS: Pacemaker defibrillator is seen. Cardiomegaly is noted. The aortic arch is calcified. Right lung airs pace opacities are seen, new from prior exam. Small bilateral pleural effusions are seen. IMPRESSION: 1. Interval development of right airspace opacities compatible with pneumonia/aspiration. 2. Small bilateral pleural effusions. 3. Stable cardiomegaly. ACT 112: Negative or not required by law. Electronically signed by: Kayode Ann M.D. 07/06/2023 11:36 AM
[2023-07-06] MEDS ORDERED: SODIUM CHLORIDE 0.9% 500 ML IV ONE (11:43)
[2023-07-06] MEDS ORDERED: PIPERACILLIN/TAZOBACTAM 4.5 GM/120 ML BAG IV ONE (11:43)
[2023-07-06 11:49] LABS: Basophils # (auto) 0.06 K/uL (0-0.2); Basophils % (auto) 0.4 %; Eosinophils # (auto) 0.11 K/uL (0-0.50); Eosinophils % (auto) 0.7 %; Hematocrit (blood only) 32.2 % (37.0-47.0); Hemoglobin 10.3 g/dl (12.0-16.0); Immature Granulocytes # (auto) 0.21 K/uL (0.01-0.20); Immature Granulocytes % (auto) 1.3 %; Lymphocytes # (auto) 0.63 K/uL (1.2-3.4); Lymphocytes % (auto) 3.8 %; Mean Corpuscular Hemoglobin 29.6 pg (25.0-34.0); Mean Corpuscular Volume 92.5 fL (80.0-100.0); Mean Platelet Volume 10.5 fL (9.4-12.4); Monocytes # (auto) 1.03 K/uL (0.11-0.59); Monocytes % (auto) 6.3 %; Neutrophils # (auto) 14.44 K/uL (1.40-6.50); Neutrophils % (auto) 87.5 %; Platelet Count 335 K/uL (130-400); RDW Coefficient of Variation 17.4 % (11.5-14.5); RDW Standard Deviation 58.7 fL (36.4-46.3); Red Blood Count 3.48 M/uL (4.20-5.40); White Blood Count 16.48 K/ul (4.8-10.8)
[2023-07-06] MEDS ORDERED: VANCOMYCIN CONSULT ACTIVE PRN (12:02)
[2023-07-06 12:09] LABS: Albumin Level 3.7 gm/dl (3.4-5.0); BUN Creatinine Ratio 18.8 (10-20); Bilirubin Direct 0.3 mg/dl (0-0.2); Bilirubin,Total 1.1 mg/dl (0.2-1.0); Calcium 8.8 mg/dl (8.6-10.3); Creatinine Clr Calc Pharmacy 16.3 ml/min; Est GFR (Non-African American) 25.1 ml/min; Magnesium 1.9 mg/dl (1.7-2.4); Potassium 4.1 mmol/L (3.5-5.1); Total Protein 6.9 gm/dl (6.0-8.3)
--- NOTE | 2023-07-06 12:15 | Electrocardiogram Report ---
Test Reason : Blood Pressure : / mmHG Vent. Rate : 078 BPM Atrial Rate : 078 BPM P-R Int : 098 ms QRS Dur : 208 ms QT Int : 498 ms P-R-T Axes : 099 -67 114 degrees QTc Int : 567 ms AV dual-paced rhythm Abnormal ECG When compared with ECG of 22-JUN-2023 16:36, Electronic ventricular pacemaker has replaced Atrial fibrillation Vent. rate has decreased BY 60 BPM Confirmed by Valeriy Campblel ([id number]) on 07/06/2023 12:14:40 PM Referred By: Confirmed By:Valeriy Campbell
[2023-07-06 12:45] LABS: Troponin I High Sensitivity 331.8 pg/ml (0-14)
[2023-07-06 12:50] LABS: Adenovirus PCR Not Detected (NotDetected); Bordetella parapertussis PCR Not Detected (NotDetected); Bordetella pertussis PCR Not Detected (NotDetected); Chlamydia pneumoniae PCR Not Detected (NotDetected); Coronavirus 229E PCR Not Detected (NotDetected); Coronavirus CoV-2 (COVID19)PCR Not Detected (NotDetected); Coronavirus HKU1 PCR Not Detected (NotDetected); Coronavirus NL63 PCR Not Detected (NotDetected); Coronavirus OC43PCR Not Detected (NotDetected); Human Metapneumovirus PCR Not Detected (NotDetected); Influenza A PCR Not Detected (NotDetected); Influenza B PCR Not Detected (NotDetected); Mycoplasma pneumoniae PCR Not Detected (NotDetected); Parainfluenza Virus 1 PCR Not Detected (NotDetected); Parainfluenza Virus 2 PCR Not Detected (NotDetected); Parainfluenza Virus 3 PCR Not Detected (NotDetected); Parainfluenza Virus 4 PCR Not Detected (NotDetected); Respiratory Syncytial VirusPCR Not Detected (NotDetected); Rhinovirus/Enterovirus PCR Not Detected (NotDetected)
--- NOTE | 2023-07-06 13:15 | History & Physical Report ---
Date of Service July 06, 2023 Assessment & Plan (1) Acute hypoxemic respiratory failure: (2) Aspiration pneumonia of right lung: (3) Elevated troponin: (4) AWA (acute kidney injury): (5) Cardiomyopathy: (6) HTN (hypertension): (7) PAF (paroxysmal atrial fibrillation): Plan Pt is an 87yoF with PMhx significant for PAF, NSVT, HOCM with dual chamber AICD in place, hypothyroidism, Hx of pleural effusions, mild dementia, GERD, malnutrition admitted with acute respiratory failure requiring BiPAP support. SOB/Dyspnea/Acute respiratory failure/Aspiration Pneumonia Pt recently discharged from [facility] on July 03 to [facility] for rehab. Did not have ICD removed as was deemed too risky and her last set of blood cultures were negative. Started having SOB today and was brought into the ED. Hypoxic to the 80s requiring bipap support Chest XRAY with changes concerning for aspiration pneumonia (right sided opacities) with stable bilateral pleural effusions and stable cardiomegaly. WBC chronically elevated, procalcitonin negative, biofire completely negative, blood Cx x2 pending Per ED provider, pt received Lasix 40mg HOUSESMITH with no improvement in symptoms. Subsequently received 500mls of NSS in the ED. One dose of zosyn given in the ED, continue Continue bipap and wean as tolerated, PCU for further monitoring Pt NPO, speech consult placed. Given noted pleural effusions and fluid given in the ED, will hold off on further fluids at this time. Home Lasix currently ordered to resume in AM Elevated troponin/HOCM Troponins elevated to 331.8, likely due to demand ischemia Trend q6h, echo ordered and pending Consider cardiology input if it continues to increase Hx of bacteremia/ICD currently in place Last admission from 06/22 to 06/27 with noted bacteremia. ID recommended removal of ICD and t was transferred to [facility] to have procedure done. However, the procedure was deemed to risky but fortunately pt also had negative blood cultures while there. The decision was made to keep the ICD in. Repeat Blood Cx x2 pending Continue IV Vancomycin 750mg daily until 08/08/2023. 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 PAF, NSVT, HOCM with dual chamber AICD in place Follows with Cardiology Continue amiodarone, metoprolol, diltiazem and Coumadin for a fib anticoagulation INR of 3.9, will hold warfarin today and repeat PT/INR in the AM Malnutrition On remeron, continue CKD Stable, currently at baseline As noted above, holding off on gentle hydration, given pt's cardiac Hx- continue to monitor for need for it Hypothyroidism Continue levothyroxine GERD Continue home ppi Memory loss/Dementia Continue donepezil CODE STATUS: Full code per daughters in the room Diet: NPO untl seen by speech DVT prophylaxis: on warfarin Dispo: PCU/tele History of Present Illness Chief Complaint: SOB Primary Care Provider: Omar Milton MD Pt is an 87yoF with PMhx significant for PAF, NSVT, HOCM with dual chamber AICD in place, hypothyroidism, Hx of pleural effusions, mild dementia, GERD, malnutrition admitted with acute respiratory failure requiring BiPAP support. Was recently admitted from 06/22 to 06/27 for AMS in the setting of bacteremia and was transferred to [facility] for possible removal of ICD in the setting of persistent bacteremia. However, it was determined that the procedure would be too risky and the ICD was left in place. Fortunately her blood cultures were also negative at the time and she was discharged to [facility] rehab on Jul 03 to receive IV Vancomycin for a total of 6 weeks. While there she was doing well until this AM when she became acutely SOB. She was treated with Lasix there with no improvement to her symptoms. She was then brought to the ED for further evaluation. In the ED she received a dose of Zosyn and 500ml of fluids and was placed on BiPAP for further respiratory support. Allergies Allergy/AdvReac Type Severity Reaction Status Date / Time bee venom protein (honey bee) Allergy Intermediate Hives Verified 06/22/23 17:33 alendronate sodium AdvReac Intermediate Muscle Pain Verified 06/22/23 17:33 [From Fosamax] simvastatin AdvReac Intermediate Muscle Pain Verified 06/22/23 17:33 Home Medications Medication Instructions Recorded Confirmed Type amiodarone 200 mg tablet 200 mg PO DAILY 05/02/20 07/06/23 History levothyroxine 25 mcg capsule 25 mcg PO DAILYBB 05/02/20 07/06/23 History cholecalciferol (vitamin D3) 25 1,000 unit PO QAM 06/22/23 07/06/23 History mcg (1,000 unit) capsule (Vitamin D3) diltiazem HCl 120 mg capsule,24 120 mg PO DAILY 06/22/23 07/06/23 History hr,extended release donepezil 5 mg tablet 5 mg PO QPM 06/22/23 07/06/23 History hydrocortisone 2.5 % topical cream 1 applic topical BID PRN RECTAL 06/22/23 07/06/23 History IRRITATION metoprolol succinate 25 mg 25 mg PO DAILY 06/22/23 07/06/23 History tablet,extended release 24 hr mirtazapine 15 mg tablet 7.5 mg PO HS 06/22/23 07/06/23 History warfarin 2 mg tablet See Rx Instructions .Route .COMPLEX 06/22/23 07/06/23 His tory albuterol 90 mcg/actuation aerosol 90 mcg inhalation QID 07/06/23 07/06/23 History inhaler docusate sodium 100 mg capsule 100 mg PO BID 07/06/23 07/06/23 History furosemide 40 mg/4 mL oral solution 40 mg PO QAM 07/06/23 07/06/23 History ondansetron 4 mg disintegrating 4 mg translingual Q4 PRN Nausea 07/06/23 07/06/23 History tablet And Vomiting pantoprazole 40 mg tablet,delayed 40 mg PO DAILY 07/06/23 07/06/23 History release vancomycin 750 mg/250 mL in 0.9 % 750 mg IV DAILY 07/06/23 07/06/23 History sodium chloride intravenous solution Past Med/Surg History Medical History CAD (coronary artery disease) Cardiomyopathy Heart disease HOCM (hypertrophic obstructive cardiomyopathy) HTN (hypertension) Hyperlipidemia Implantable cardioverter-defibrillator (ICD) at end of battery life pt for ICD generator change; risks discussed; consents signed PAF (paroxysmal atrial fibrillation) Tricuspid regurgitation Family History Mother No problems noted. Social History Smoking Status: Former smoker Second Hand Exposure: No; Do You Dip or Chew Tobacco: No; Hx Alcohol Use: No Hx Substance Use: No Preferred Language: Ugandan Communication Ability: Effective Caddy Required: No Beliefs That Will Affect Care: None Current Living Situation: Alone Feels Safe at Home: Yes Assistive Devices: None Review of Systems Review of Systems: Unobtainable due to cognitive status Physical Exam Physical Exam: General: Laying on the bed with bipap in place Skin: No noted rashes or bruises Psych: could not be determined Neuro: responds to stimuli HEENT: NC/AT CV: Blowing murmur appreciated Resp: no increased effort of breathing, bipap on face Abdomen:Soft, nontender, nondistended. Extremities: No edema in lower extremities bilaterally. Results & Data Results & Data Vital Signs (Past 12 Hours) Vital Signs Temp Pulse Resp BP Pulse Ox O2 Del Method O2 Flow Rate 07/06/23 11:41 87 L Oxymask 6 07/06/23 11:38 75 24 92 BiPAP 07/06/23 11:34 76 07/06/23 11:25 76 29 H 95 07/06/23 11:20 36.5 C 76 26 H 132/88 92 BiPAP 07/06/23 11:20 Oxymask 8 FiO2 07/06/23 11:41 07/06/23 11:38 07/06/23 11:34 07/06/23 11:25 40 07/06/23 11:20 07/06/23 11:20 Diagnostic Findings Chest X-Ray 07/06/23 11:19 XR chest 1V portable CLINICAL HISTORY: Sepsis TECHNIQUE: Single frontal radiograph of the chest was obtained. Comparison: Comparison is made to chest radiograph 06/24/2023 FINDINGS: Pacemaker defibrillator is seen. Cardiomegaly is noted. The aortic arch is calcified. Right lung airspace opacities are seen, new from prior exam. Small bilateral pleural effusions are seen. IMPRESSION: 1. Interval development of right airspace opacities compatible with pneumonia/aspiration. 2. Small bilateral pleural effusions. 3. Stable cardiomegaly. ACT 112: Negative or not required by law. Electronically signed by: Kayode Ann M.D. 07/06/2023 11:36 AM (2) Aspiration pneumonia of right lung Aspiration pneumonia type: unspecified Lung location: unspecified part of lung Qualified Code(s): J69.0 - Pneumonitis due to inhalation of food and vomit
[2023-07-06] MEDS ORDERED: ONDANSETRON 4 MG OD TAB PO PRN (14:18)
[2023-07-06] MEDS ORDERED: HYDROCORTISONE 2.5% CR 30 GM TUBE EXT PRN (14:18)
[2023-07-06 14:29] LABS: INR 3.9 (0.9-1.1); Prothrombin Time 38.9 Seconds (9.0-12.0)
--- NOTE | 2023-07-06 14:43 | Pharmacy Report ---
Pharmacy PK ABX Note - Date of Service July 06, 2023 - Assessment and Plan Assessment 87 year old F receiving vancomycin for treatment of MRSA bacteremia/infected ICD. Receiving vancomycin 750mg IV q24h in the outpatient setting per [facility] ID (X 6 weeks of therapy). Received dose this AM ~ 0515. SCr 1.81mg/dL today. Day # 9 of antimicrobial therapy. Plan Vancomycin * Continue 750mg IV q24h (timed slightly later in AM to allow time to assess lev el) * Random level tomorrow AM with AM labs to ensure safety/efficacy of current regimen given fluctuating renal function Pharmacy will continue to follow and will adjust dose/frequency as necessary. Thank you. Pharmacy has transitioned to AUC monitoring for vancomycin. AUC/XIMENA is the preferred PK/PD target and is associated with decreased risk of nephrotoxicity compared to traditional trough targets.
[2023-07-06] MEDS ORDERED: ALBUTEROL HFA 8 GM INHALER INH PRN (15:00)
[2023-07-06] MEDS ORDERED: OPTIRAY 320 100ml IV ONE (15:22)
[2023-07-06 15:32] LABS: Appearance Urine Cloudy (Clear); Bilirubin Urine Negative (Negative); Blood Urine 3+ (Negative); Color Urine Yellow; Glucose Urine UA Negative (Negative); Ketones Urine Negative (Negative); Leukocyte Esterase Urine 2+ (Negative); Nitrite Urine Negative (Negative); Protein Urine Trace (Negative); Specific Gravity Urine 1.009 (1.000-1.030); Urobilinogen Urine Negative (Negative); WBC Urine Automated >30 /hpf (0-5)
[2023-07-06 15:43] LABS: Bacteria Urine Automated 3+ (Negative)
[2023-07-06 15:46] LABS: Amorphous Sediment Urine Present (None Prsent)
[2023-07-06] MEDS: PIPERACILLIN/TAZOBACTAM 4.5 GM in DEXTROSE 5% 100 ML IV SCH (20:01)
[2023-07-06] MEDS: DOCUSATE SODIUM 100 MG CAP PO SCH (20:03)
[2023-07-06] MEDS: DONEPEZIL HCL 5 MG TAB PO SCH (20:03)
[2023-07-06] MEDS: MIRTAZAPINE TAB 15 MG TAB PO SCH (20:03)
--- NOTE | 2023-07-06 22:06 | CT Scan Report ---
CT chest diagnostic w con CLINICAL HISTORY: SOB TECHNIQUE: Multidetector row helical CT of the chest was performed with intravenous contrast. Coronal and sagittal reformations were obtained. Automated dose lowering techniques and/or adjustment accord ing to patient size were utilized for this exam. CT DOSE: 279.85 mGy.cm Comparison: None available at the time of this dictation. FINDINGS: Lungs and pleura: Multifocal airspace opacities are seen. There are small bilateral pleural effusions Heart and pericardium: Cardiomegaly is seen with biatrial enlargement. Vessels: Severe atherosclerotic changes in the aorta and coronary arteries. Pulmonary trunk measures 34 mm in diameter. Mediastinum and adelfo: Numerous enlarged mediastinal lymph nodes measure up to 16 mm in diameter. Chest wall and lower neck: Unremarkable. Abdomen: Unremarkable. Bones: Degenerative changes in the thoracic spine. Chronic appearing compression deformity is seen in the mid thoracic spine. IMPRESSION: 1. Multifocal pneumonia is seen with reactive lymphadenopathy. Follow-up to resolution is recommende d. 2. Small bilateral pleural effusions. 3. Cardiomegaly and pulmonary hypertension. ACT 112: Negative or not required by law. Electronically signed by: Kayode Ann M.D. 07/06/2023 10:04 PM
[2023-07-07] MEDS ORDERED: MAGNESIUM SULFATE / D5W 1 GM/100 ML BAG IV ONE (01:21)
[2023-07-07] MEDS ORDERED: ALBUT/IPRATROP 3MG/0.5MG NEB 3 ML VIAL NEB STA (01:22)
[2023-07-07] MEDS ORDERED: ALBUT/IPRATROP 3MG/0.5MG NEB 3 ML VIAL ONE (01:25)
[2023-07-07] MEDS ORDERED: OLANZapine 10 MG/2.1 ML SDV IM STA (01:28)
[2023-07-07] MEDS ORDERED: ACETAMINOPHEN 1,000 MG/100 ML VIAL IV STA (01:29)
[2023-07-07] MEDS ORDERED: methylPREDNISolone 40 MG in SYRINGE 0 ML IV STA (01:40)
[2023-07-07] MEDS ORDERED: OLANZapine 10 MG/2.1 ML SDV IM PRN (01:56)
[2023-07-07 02:11] LABS: Allen Test Pos (Pos); Base Excess ABG -6.8 mEq/L (-9-1.8); HCO3 ABG 18 mmol/L (19-24); Oxygen Saturation ABG 95.7 % (90-95); PCO2 ABG 31 mmHg (35-46); PO2 ABG 72 mmHg (80-95); pH ABG 7.36 (7.35-7.45)
[2023-07-07 02:19] LABS: Hemoglobin 9.3 g/dl (12.0-16.0); Mean Corpuscular Hgb Conc 32.1 g/dL (32.0-36.0); Mean Corpuscular Volume 93.5 fL (80.0-100.0); Mean Platelet Volume 10.2 fL (9.4-12.4); Platelet Count 272 K/uL (130-400); RDW Coefficient of Variation 17.5 % (11.5-14.5); RDW Standard Deviation 58.4 fL (36.4-46.3); White Blood Count 16.45 K/ul (4.8-10.8)
[2023-07-07 02:33] LABS: Albumin Globulin Ratio 1.2 (0.9-2); Albumin Level 3.3 gm/dl (3.4-5.0); BUN Creatinine Ratio 16.7 (10-20); Bilirubin,Total 1.3 mg/dl (0.2-1.0); Calcium 8.2 mg/dl (8.6-10.3); Creatinine Clr Calc Pharmacy 14.6 ml/min; Est GFR (African American) 25.3 ml/min; Est GFR (Non-African American) 21.8 ml/min; Globulin 2.7 gm/dl (2.5-4.0); Potassium 3.6 mmol/L (3.5-5.1)
[2023-07-07 02:47] LABS: Basophils # (auto) 0.06 K/uL (0-0.2); Basophils % (auto) 0.4 %; Echinocytes 1+; Eosinophils # (auto) 0.04 K/uL (0-0.50); Eosinophils % (auto) 0.2 %; Immature Granulocytes # (auto) 0.14 K/uL (0.01-0.20); Immature Granulocytes % (auto) 0.9 %; Lymphocytes # (auto) 0.45 K/uL (1.2-3.4); Lymphocytes % (auto) 2.7 %; Monocytes # (auto) 0.91 K/uL (0.11-0.59); Monocytes % (auto) 5.5 %; Neutrophils # (auto) 14.85 K/uL (1.40-6.50); Neutrophils % (auto) 90.3 %
[2023-07-07 03:10] LABS: INR 4.1 (0.9-1.1); Partial Thromboplastin Ratio 1.4; Prothrombin Time 40.8 Seconds (9.0-12.0)
[2023-07-07 03:12] LABS: Troponin I High Sensitivity 253.2 pg/ml (0-14)
[2023-07-07 03:28] LABS: Partial Thromboplastin Time 40.1 Seconds (21.0-31.0)
[2023-07-07] MEDS ORDERED: ALBUMIN 25% 25 GM/100 ML VIAL IV ONE (04:02)
[2023-07-07] MEDS ORDERED: FUROSEMIDE 40 MG/4 ML VIAL IV ONE (04:02)
[2023-07-07] MEDS: LEVOTHYROXINE SODIUM 25 MCG TABLET PO SCH (05:55)
[2023-07-07] MEDS: POTASSIUM CHLORIDE / WTR 10 MEQ/100 ML PLCT IV SCH ×4 (06:19→10:35)
--- NOTE | 2023-07-07 07:24 | XRay Report ---
XR chest 1V portable HISTORY: Hypoxia. COMPARISON: Chest 07/06/2023. FINDINGS: No pneumothorax. The heart remains enlarged. Is left-sided pacemaker and a right central ve nous catheter which terminates at the SVC. This remains unchanged. There are old, healed left-sided r ib fractures. Pulmonary edema and multifocal bilateral airspace opacities persist. There are small to moderate bilateral pleural effusions again noted. IMPRESSION: 1. No change in the pulmonary edema and multifocal bilateral airspace opacities. 2. Small to moderate bilateral pleural effusions persist. ACT 112: Negative or not required by law. Electronically signed by: Johnny Adair M.D. 07/07/2023 7:22 AM
[2023-07-07] MEDS ORDERED: VANCOMYCIN LEVEL ONE (08:00)
[2023-07-07] MEDS: PIPERACILLIN/TAZOBACTAM 4.5 GM in DEXTROSE 5% 100 ML IV SCH (08:10)
[2023-07-07] MEDS ORDERED: VANCOMYCIN IV SCH (09:00)
[2023-07-07] MEDS ORDERED: VANCOMYCIN HCL 750 MG in SODIUM CHLORIDE 0.9% 250 ML IV SCH (09:00)
[2023-07-07] MEDS ORDERED: SODIUM CHL IV SCH (09:00)
[2023-07-07] MEDS ORDERED: FUROSEMIDE 40 MG TAB PO SCH (09:00)
--- NOTE | 2023-07-07 09:48 | Pharmacy Report ---
Pharmacy PK ABX Note - Date of Service July 07, 2023 - Assessment and Plan Assessment 87 year old F receiving vancomycin for treatment of MRSA bacteremia/infected ICD. Receiving vancomycin 750mg IV q24h in the outpatient setting per [facility] ID (X 6 weeks of therapy). Prior doses from [facility] and [facility] confirmed via [facility] and via phone call respectively. Labile renal function, SCr: 2.03 mg/dL today, but has ranged 1.5-3.3 mg/dL since 06/23/23. Blood cultures x 2 (06/24/23): MRSA Blood cultures x 2 (07/06/23): pending Urine culture (07/06/23): gram-negative bacilli Day # 10 of antimicrobial therapy. Plan Vancomycin * Current regimen: 750 mg IV every 24 hours * Random level obtained 07/07/23 resulted as 23.5 mcg/mL @0159 and 20.9 @0733. This is predicted to result in supratherapetuic target AUC/XIMENA of 400-600 mg/L.hr * Change to 500 mg IV every 24 hours * Given labile renal function will repeat random level ordered for: 07/08/23 and adjust as necessary. Pharmacy will continue to follow and will adjust dose/frequency as necessary. Thank you. Pharmacy has transitioned to AUC monitoring for vancomycin. AUC/XIMENA is the preferred PK/PD target and is associated with decreased risk of nephrotoxicity compared to traditional trough targets.
--- NOTE | 2023-07-07 10:27 | Hospitalist Progress Note ---
Date of Service July 07, 2023 Assessment & Plan (1) Acute hypoxemic respiratory failure: (2) Aspiration pneumonia of right lung: (3) Elevated troponin: (4) AWA (acute kidney injury): (5) Cardiomyopathy: (6) HTN (hypertension): (7) PAF (paroxysmal atrial fibrillation): Plan Patient is an 87-year-old female with a significant history of paroxysmal atrial fibrillation on warfarin, nonsustained V. tach, hypertrophic cardiomyopathy status post ICD placement, CKD stage III and dementia. On 06/22 she was brought to [facility] with acute onset malaise chills and vomiting and 2 days of diarrhea. She was disoriented at the time of admission and lactate was elevated. CT imaging showed splenic infarcts and possible endocarditis. 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 She was started on Zosyn and metronidazole. Blood cultures revealed MRSA with growth in 4 out of 4 bottles. Zosyn was discontinued and therapy with daptomycin was initiated. She had a significant increase in creatinine from 1.7-3.3. Daptomycin was switched to vancomycin. A DAVEY performed on 06/25 revealed no vegetations however infected ICD was suspected with further possible ICD removal recommended by ID. She was transferred to [facility] for further management on 06/26. EP, cardiology and ID were consulted. During the hospital stay it was felt that removing her ICD was too risky and her cultures ended up clearing. It was decided the best plan of care would be to continue IV vancomycin for 6 weeks. She was discharged on 07/03 to [facility]. Daughter reports that she was not out of bed much at the hospital stay and she does have some issues with swallowing and possible aspiration. Just prior to arrival she had a rapid worsening of respiratory distress requiring BiPAP. Full sepsis resuscitation was avoided with history of cardiomyopathy and concern for overloading her. Aspiration pneumonia was suspected. Elevated troponin was seen and thought secondary to demand mismatch ischemia with no clear evidence of ACS on EKG and patient was denying chest pain. 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 Subsequently received 500mls of NSS in the ED. One dose of zosyn given in the ED and this was continued Given known renal complications associated wtih combination Vanc/Zosyn together, Zosyn was changed to Rocephin/flagyl Respiratory support was de-escalated from BiPAP down to oxygen Pt NPO, speech consult placed. VSS planned for tomorrow, currently on modified diet. Cont abx and oxygen support Ambulate early and often! Incentive spirometer at bedside Demand ischemia Elevated HS troponin, no evidence of ACS. Remains chest pain-free. Repeat echo 07/06 reveals severe aortic calcification, additional valvulopathy, grade II diastolic dysfunction, pulmonary hypertension and EF 55-60%. Hx of bacteremia/ICD currently in place Last admission from 06/22 to 06/27 with noted bacteremia. ID recommended removal of ICD and she was transferred to [facility] to have procedure done. However, the procedure was deemed to risky but fortunately pt also had negative blood cultures while there. The decision was made to keep the ICD in. Repeat Blood Cx x2 are negative to date. Continue IV Vancomycin until 08/08/2023. Pharmacy consulted to manage. Acute kidney injury in setting of CKD Baseline creatinine is around 1.5 and today she is 2.03. She initially received 500cc NSS, and then later albumin with Lasix 60mg IV around 0430 followed by her "home" dose of Lasix 40mg PO this morning. Per home med list she takes this daily, however, on the med rec from recent hospital dis charge Lasix 20mg PO daily had been discontinued. Her home med list was updated to reflect this. There is no evidence of fluid overload at this point and she is breathing better today Hold additional diuretics pending repeat BMP in am. Hx of pleural effusions Will monitor with repeat imaging after treatment. PAF, NSVT, HOCM with dual chamber AICD in place Follows with Cardiology chronic, stable. Continue amiodarone, metoprolol, diltiazem and Coumadin for a fib anticoagulation INR of 3.9, will hold warfarin today and repeat PT/INR in the AM Malnutrition chroinc, stable. On remeron, continue Hypothyroidism chronic, stable. Continue levothyroxine GERD chronic, stable. Continue home ppi Memory loss/Dementia chronic, some increased disorientation as she reports she is at [facility] and cannot tell me the date. Possibly some worsened confusion in the setting of known h/o dementia. Continue donepezil per home regimen. CODE STATUS: Full code Diet: easy to chew DVT prophylaxis: warfarin with therapetuic INR. Dispo: cont PCU I spent a total [id number] coordinating, documenting, and providing care for this patient excluding time spent in the performance of separately billed services DO Gali Pompa Hosptalist Admission and Anticipated Discharge Date Admission Date: July 06, 2023 Subjective 87 yo F presented from [facility] acute respiratory failure requiring BIPAP support yesterday. She was recently discharged from [facility] to [facility] on 07/03. Chest CT revealing multifocal pneumonia and bilateral pleural effusions. Daughter is at bedside and states she is an aspiration risk and wasn't moved around much physically prior to hospital discharge. Daughter assists with the history. She reports feeling much better today She is able to eat, modified diet today after speech's evaluation She denies any chest pain, coughing, SOB fever She is generally fatigued. Review of Systems Review of Systems: All systems were reviewed and negative except as indicated on HPI above. Physical Exam Physical Exam: CONSTITUTIONAL: frail, elderly, vitals as above, NAD EYES: normal conjunctivae, no scleral icterus ENT: external ear and nose normal, oropharynx clear NECK: trachea midline RESPIRATORY: normal respiratory effort, crackles throughout her lungs bilaterally. CARDIOVASCULAR: 3/6 ORLIN heard across precordium, no gallops or rubs, no JVD, no peripheral edema GASTROINTESTINAL: soft, nontender, ND, no guarding MUSCULOSKELETAL: generalized weakness, head is normocephalic and atraumatic, SKIN: warm and dry NEUROLOGIC: CN 2-12 grossly intact, no sensory deficit, normal cognition, normal speech, no tremor PSYCHIATRIC: alert cooperative and oriented to person, place and time. Euthymic mood, makes good eye contact, language grossly intact, recent and remote memory grossly intact. Results & Data Results & Data Vital Signs (Past 12 Hours) Vital Signs Temp Pulse Pulse Pulse Resp BP Pulse Ox 07/07/23 09:13 60 07/07/23 08:35 07/07/23 07:25 36.5 C 68 18 136/65 95 07/07/23 04:02 60 27 H 95 07/07/23 03:36 36.5 C 60 31 H 123/60 96 07/07/23 01:30 69 37 H 95 07/07/23 01:29 69 38 H 92 07/06/23 23:38 36.8 C 67 30 H 148/69 H 93 07/06/23 22:45 85 36 H 91 O2 Del Method O2 Flow Rate FiO2 07/07/23 09:13 07/07/23 08:35 Oxymask 4 07/07/23 07:25 BiPAP 07/07/23 04:02 40 07/07/23 03:36 BiPAP 40 07/07/23 01:30 40 07/07/23 01:29 BiPAP 40 07/06/23 23:38 BiPAP 40 07/06/23 22:45 40 Laboratory Results Short CBC 07/06/23 07/07/23 Range/Units 11:27 01:55 WBC 16.48 H 16.45 H (4.8-10.8) K/ul Hgb 10.3 L 9.3 L (12.0-16.0) g/dl Hct 32.2 L 29.0 L (37.0-47.0) % Plt Count 335 272 (130-400) K/uL BMP 07/06/23 07/07/23 11:27 01:55 Sodium 140 141 Potassium 4.1 3.6 Chloride 109 H 109 H Carbon Dioxide 20 L 19 L BUN 34 H 34 H Creatinine 1.81 H 2.03 H Glucose 113 H 115 H Calcium 8.8 8.2 L Liver Function 07/06/23 07/07/23 Range/Units 11:27 01:55 Total Bilirubin 1.1 H 1.3 H (0.2-1.0) mg/dl Direct Bilirubin 0.3 H (0-0.2) mg/dl AST 40 H 33 (13-39) U/L ALT 20 17 (7-52) U/L Alkaline Phosphatase 109 H 89 (34-104) U/L Albumin 3.7 3.3 L (3.4-5.0) gm/dl Urine 07/06/23 Range/Units 15:05 Urine Color Yellow Urine Appearance Cloudy A (Clear) Urine pH 5.0 (4.5-7.5) Ur Specific [place] 1.009 (1.000-1.030) Urine Protein Trace H (Negative) Urine Glucose (UA) Negative (Negative) Diagnostic Findings Chest X-Ray 07/07/23 01:24 XR chest 1V portable HISTORY: Hypoxia. COMPARISON: Chest 07/06/2023. FINDINGS: No pneumothorax. The heart remains enlarged. Is left-sided pacemaker and a right central venous catheter which terminates at the SVC. This remains unchanged. There are old, healed left-sided rib fractures. Pulmonary edema and multifocal bilateral airspace opacities persist. There are small to moderate bilateral pleural effusions again noted. IMPRESSION: 1. No change in the pulmonary edema and multifocal bilateral airspace opacities. 2. Small to moderate bilateral pleural effusions persist. ACT 112: Negative or not required by law. Electronically signed by: Johnny Adair M.D. 07/07/2023 7:22 AM Medications Administered Current Inpatient Medications Albuterol (Albuterol Hfa 8 Gm Inhaler) 2 puffs INH Q6H PRN PRN Reason: SOB/Wheezing Stop: 08/05/23 14:59 Amiodarone HCl (Amiodarone 200 Mg Tab) 200 mg PO DAILY MANUEL Stop: 08/06/23 08:59 Diltiazem HCl (Diltiazem Hcl 120 Mg Capcr) 120 mg PO DAILY MANUEL Stop: 08/06/23 08:59 Docusate Sodium (Docusate Sodium 100 Mg Cap) 100 mg PO BID MANUEL Stop: 08/05/23 20:59 Last Admin: 07/06/23 20:03 Dose: Not Given Donepezil HCl (Donepezil Hcl 5 Mg Tab) 5 mg PO QPM MANUEL Stop: 08/05/23 20:59 Last Admin: 07/06/23 20:03 Dose: Not Given Furosemide (Furosemide 40 Mg Tab) 40 mg PO QAM MANUEL Stop: 08/07/23 08:59 Hydrocortisone (Hydrocortisone 2.5% Cr 30 Gm Tube) 1 appln EXT BID PRN PRN Reason: RECTAL IRRITATION Stop: 08/05/23 14:17 Piperacillin Sod/Tazobactam (Sod 4.5 gm/ Dextrose) 120 mls @ 30 mls/hr IV Q12H [facility]; Protocol Stop: 07/13/23 19:59 Last Admin: 07/07/23 08:10 Dose: 30 mls/hr Vancomycin HCl 500 mg/ Sodium (Chloride) 110 mls @ 132 mls/hr IV Q24H [facility] Stop: 07/21/23 11:59 Levothyroxine Sodium (Levothyroxine Sodium 25 Mcg Tablet) 25 mcg PO DAILYBB MANUEL Stop: 08/06/23 06:29 Last Admin: 07/07/23 05:55 Dose: Not Given Metoprolol Succinate (Metoprolol Succ 25mg Ext Rel Tab) 25 mg PO DAILY [facility] Stop: 08/06/23 08:59 Mirtazapine (Mirtazapine Tab 15 Mg Tab) 7.5 mg PO HS [facility] Stop: 08/05/23 20:59 Last Admin: 07/06/23 20:03 Dose: Not Given Miscellaneous Information (Vancomycin Consult Active) 1 each N/A UD PRN PRN Reason: Consult Stop: 08/05/23 12:01 Olanzapine (Olanzapine 10 Mg/2.1 Ml Sdv) 2.5 mg IM Q4H PRN PRN Reason: Anxiety/Agitation Stop: 08/06/23 01:55 Ondansetron HCl (Ondansetron 4 Mg Od Tab) 4 mg PO Q4 PRN PRN Reason: Nausea And Vomiting Stop: 08/05/23 14:17 Pantoprazole Sodium (Pantoprazole 40 Mg Tab) 40 mg PO DAILY [facility] Stop: 08/06/23 08:59 Vitamin D (Cholecalciferol 1,000 Units 25 Mcg Tab) 1,000 units PO QAM [facility] Stop: 08/06/23 08:59 (2) Aspiration pneumonia of right lung Aspiration pneumonia type: unspecified Lung location: unspecified part of tremaine g Qualified Code(s): J69.0 - Pneumonitis due to inhalation of food and vomit
[2023-07-07] MEDS: AMIODARONE 200 MG TAB PO SCH (10:36)
[2023-07-07] MEDS: METOPROLOL SUCC 25MG EXT REL TAB PO SCH (10:36)
[2023-07-07] MEDS: PANTOprazole 40 MG TAB PO SCH (10:37)
[2023-07-07] MEDS: CHOLECALCIFEROL 1,000 UNITS 25 MCG TAB PO SCH (10:37)
[2023-07-07] MEDS: DOCUSATE SODIUM 100 MG CAP PO SCH ×2 (10:38→20:46)
[2023-07-07] MEDS: dilTIAZem HCL 120 MG CAPCR PO SCH (10:38)
[2023-07-07] MEDS: VANCOMYCIN HCL 500 MG in NSS 100mL IV SCH (12:32)
--- NOTE | 2023-07-07 14:13 | Electrocardiogram Report ---
Test Reason : Blood Pressure : / mmHG Vent. Rate : 071 BPM Atrial Rate : 071 BPM P-R Int : 000 ms QRS Dur : 184 ms QT Int : 570 ms P-R-T Axes : 000 -68 121 degrees QTc Int : 619 ms Ventricular-paced rhythm Abnormal ECG When compared with ECG of 06-JUL-2023 11:14, Vent. rate has decreased BY 7 BPM Confirmed by Valeriy Campbell ([id number]) on 07/07/2023 2:13:22 PM Referred By: [facility] Confirmed By:Valeriy Campbell
[2023-07-07] MEDS ORDERED: WARFARIN SOD 4 MG TAB PO SCH (16:00)
[2023-07-07] MEDS: metroNIDAZOLE 500 MG/100 ML BAG IV SCH (17:54)
[2023-07-07] MEDS: DONEPEZIL HCL 5 MG TAB PO SCH (20:46)
[2023-07-07] MEDS: cefTRIAXone SODIUM 1,000 MG in DEXTROSE 5% AD-VAN 50 ML IV SCH (20:47)
[2023-07-07] MEDS ORDERED: OLANZAPINE 2.5 MG TAB PO STA (22:04)
[2023-07-08] MEDS: metroNIDAZOLE 500 MG/100 ML BAG IV SCH ×3 (02:37→18:58)
[2023-07-08] MEDS: LEVOTHYROXINE SODIUM 25 MCG TABLET PO SCH (05:45)
[2023-07-08 07:14] LABS: Hematocrit (blood only) 27.9 % (37.0-47.0); Hemoglobin 9.1 g/dl (12.0-16.0); Mean Corpuscular Hemoglobin 29.3 pg (25.0-34.0); Mean Corpuscular Hgb Conc 32.6 g/dL (32.0-36.0); Mean Corpuscular Volume 89.7 fL (80.0-100.0); Mean Platelet Volume 10.1 fL (9.4-12.4); Platelet Count 319 K/uL (130-400); RDW Coefficient of Variation 17.6 % (11.5-14.5); RDW Standard Deviation 57.1 fL (36.4-46.3); Red Blood Count 3.11 M/uL (4.20-5.40); White Blood Count 15.18 K/ul (4.8-10.8)
[2023-07-08 07:35] LABS: BUN Creatinine Ratio 18.7 (10-20); Calcium 8.3 mg/dl (8.6-10.3); Creatinine Clr Calc Pharmacy 14.8 ml/min; Est GFR (African American) 21.2 ml/min; Est GFR (Non-African American) 18.3 ml/min; Phosphorus 3.9 mg/dl (2.5-4.9); Potassium 3.8 mmol/L (3.5-5.1)
[2023-07-08] MEDS ORDERED: FUROSEMIDE 40 MG TAB PO SCH (09:00)
[2023-07-08] MEDS: CHOLECALCIFEROL 1,000 UNITS 25 MCG TAB PO SCH (09:24)
[2023-07-08] MEDS: dilTIAZem HCL 120 MG CAPCR PO SCH (09:24)
[2023-07-08] MEDS: DOCUSATE SODIUM 100 MG CAP PO SCH ×2 (09:25→20:16)
[2023-07-08] MEDS: PANTOprazole 40 MG TAB PO SCH (09:25)
[2023-07-08] MEDS: AMIODARONE 200 MG TAB PO SCH (09:25)
[2023-07-08] MEDS: METOPROLOL SUCC 25MG EXT REL TAB PO SCH (09:25)
--- NOTE | 2023-07-08 11:36 | Fluoroscopy Report ---
FL video swallow CLINICAL HISTORY: 87 years-old Female with r/o aspiration. Dysphasia TECHNIQUE: Video fluoroscopic evaluation of swallowing was performed in the AP and lateral projection s by the speech pathology staff. The patient is fed varying consistencies of barium. FLUOROSCOPY TIME: 2.36 minutes. 3128 images. 12.4 mGy COMPARISON STUDY: None. FINDINGS: There is normal hyoid excursion and epiglottic deflection. No significant penetration or as piration identified. Swallowing function is within normal limits. IMPRESSION: 1. No aspiration identified. 2. Please see the speech pathologist report for detailed findings and recommendations. ACT 112: Negative or not required by law. Electronically signed by: Paul Cuenca M.D. 07/08/2023 11:35 AM
--- NOTE | 2023-07-08 13:24 | Pharmacy Report ---
Pharmacy PK ABX Note - Date of Service July 08, 2023 - Assessment and Plan Assessment 87 year old F receiving vancomycin for treatment of MRSA bacteremia/infected ICD. Receiving vancomycin 750mg IV q24h in the outpatient setting per [facility] (X 6 weeks of therapy). Prior doses from [facility] and [facility] confirmed via [facility] and via phone call respectively. Labile renal function, SCr has increased since time of admission, now 2.35 mg/dL. Blood cultures x 2 (06/24/23): MRSA Blood cultures x 2 (07/06/23): no growth at 24 hours Urine culture (07/06/23): alexander-sensitive Klebsiella pneumoniae Day # 11 of antimicrobial therapy. Plan Vancomycin * Current regimen: 500 mg IV every 24 hours * Random level obtained 07/08/23 resulted as 24.5 mcg/mL. This is predicted to achieve target AUC/XIMENA of 400-600 mg/L.hr * High level likely related to prior accumulation of 750 mg daily dose, so will time out the next dose of 500 mg from 1200 to 2100 and make q24h from then. * Predicted AUC at steady state: 461 mg/L.hr * Continue 500 mg IV every 24 hours * Will repeat level in the next 48-72 hours if therapy is continued and/or change in patient clinical status Pharmacy will continue to follow and will adjust dose/frequency as necessary. Thank you. Pharmacy has transitioned to AUC monitoring for vancomycin. AUC/XIMENA is the preferred PK/PD target and is associated with decreased risk of nephrotoxicity compared to traditional trough targets.
[2023-07-08] MEDS ORDERED: WARFARIN SOD 2 MG TAB PO SCH (16:00)
--- NOTE | 2023-07-08 19:55 | Hospitalist Progress Note ---
Date of Service July 08, 2023 Assessment & Plan (1) Acute hypoxemic respiratory failure: (2) Aspiration pneumonia of right lung: (3) Elevated troponin: (4) AWA (acute kidney injury): (5) Cardiomyopathy: (6) HTN (hypertension): (7) PAF (paroxysmal atrial fibrillation): Plan Patient is an 87-year-old female with a significant history of paroxysmal atrial fibrillation on warfarin, nonsustained V. tach, hypertrophic cardiomyopathy status post ICD placement, CKD stage III and dementia. On 06/22 she was brought to [facility] with acute onset malaise chills and vomiting and 2 days of diarrhea. She was disoriented at the time of admission and lactate was elevated. CT imaging showed splenic infarcts and possible endocarditis. 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 She was started on Zosyn and metronidazole. Blood cultures revealed MRSA with growth in 4 out of 4 bottles. Zosyn was discontinued and therapy with daptomycin was initiated. She had a significant increase in creatinine from 1.7-3.3. Daptomycin was switched to vancomycin. A DAVEY performed on 06/25 revealed no vegetations however infected ICD was suspected with further possible ICD removal recommended by ID. She was transferred to [facility] for further management on 06/26. EP, cardiology and ID were consulted. During the hospital stay it was felt that removing her ICD was too risky and her cultures ended up clearing. It was decided the best plan of care would be to continue IV vancomycin for 6 weeks. She was discharged on 07/[address] [facility]. Daughter reports that she was not out of bed much at the hospital stay and she does have some issues with swallowing and possible aspiration. Just prior to arrival she had a rapid worsening of respiratory distress requiring BiPAP. Full sepsis resuscitation was avoided with history of cardiomyopathy and concern for overloading her. Aspiration pneumonia was suspected. Elevated troponin was seen and thought secondary to demand mismatch ischemia with no clear evidence of ACS on EKG and patient was denying chest pain. Acute respiratory failure 2/2 multifocal pneumonia WBC chronically elevated, procalcitonin negative, biofire completely negative, BCx negative to date Per ED provider, pt received Lasix 40mg BEEF BREAKER with no improvement in symptoms. Subsequently received 500mls of NSS in the ED. One dose of zosyn given in the ED and this was continued Given known renal complications associated wtih combination Vanc/Zosyn together, Zosyn was changed to Rocephin/flagyl Respiratory support was de-escalated from BiPAP down to oxygen Speech performed video swallow study today that revealed no evidence of aspiration. Cont abx and oxygen support Ambulate early and often! Incentive spirometer at bedside Demand ischemia Elevated HS troponin, no evidence of ACS. Remains chest pain-free. Repeat echo 07/06 reveals severe aortic calcification, additional valvulopathy, grade II diastolic dysfunction, pulmonary hypertension and EF 55-60%. No further inpatient work-up at this time Hx of bacteremia/ICD currently in place Last admission from 06/22 to 06/27 with noted bacteremia. ID recommended removal of ICD and she was transferred to [facility] to have procedure done. However, the procedure was deemed to risky but fortunately pt also had negative blood cultures while there. The decision was made to keep the ICD in. Repeat Blood Cx x2 are negative to date. Continue IV Vancomycin until 08/08/2023 per [facility] infectious disease. Pharmacy consulted to manage. Acute kidney injury in setting of CKD Baseline creatinine is around 1.5 and today she is 2.03. She initially received 500cc NSS, and then later albumin with Lasix 60mg IV around 0430 followed by her "home" dose of Lasix 40mg PO this morning. Per home med list she takes this daily, however, on the med rec from recent hospital discharge Lasix 20mg PO daily had been discontinued. Her home med list was updated to reflect this. There is no evidence of fluid overload at this point and she is breathing better today Repeat BMP this morning with rising creatinine. Lasix stopped. Repeat BMP in am. Hx of pleural effusions Will monitor with repeat imaging after treatment. Lasix stopped as noted above. PAF, NSVT, HOCM with dual chamber AICD in place Follows with Cardiology chronic, stable. Continue amiodarone, metoprolol, diltiazem and Coumadin for a fib anticoagulation INR elevated, cont holding warfarin Malnutrition chroinc, stable. On remeron, continue Hypothyroidism chronic, stable. Continue levothyroxine GERD chronic, stable. Continue home ppi Memory loss/Dementia chronic, some increased disorientation as she is oriented only to person. Possibly some worsened confusion in the setting of known h/o dementia. Continue donepezil per home regimen. CODE STATUS: Full code Diet: easy to chew DVT prophylaxis: warfarin with therapeutic INR. Dispo: cont PCU I spent a total [id number] coordinating, documenting, and providing care for this patient excluding time spent in the performance of separately billed services DO Gali Pompa Hosptalist Admission and Anticipated Discharge Date Admission Date: July 06, 2023 Subjective 87 yo F presented from [facility] acute respiratory failure requiring BIPAP support yesterday. She was recently discharged from [facility] to [facility] on 07/03. Chest CT revealing multifocal pneumonia and bilateral pleural effusions. Daughter is at bedside and states she is an aspiration risk and wasn't moved around much physically prior to hospital discharge. Daughter assists with the history. She remains fatigued and weak but is appearing to improve Denies any symptoms today Daughter is at bedside and assists with history. Underwent video swallow study today with no evidence of aspiration. Review of Systems Review of Systems: All systems were reviewed and negative except as indicated on HPI above. Physical Exam Physical Exam: CONSTITUTIONAL: frail, elderly, vitals as above, NAD EYES: normal conjunctivae, no scleral icterus ENT: external ear and nose normal, oropharynx clear NECK: trachea midline RESPIRATORY: normal respiratory effort, crackles throughout her lungs bilaterally. CARDIOVASCULAR: 3/6 ORLIN heard across precordium, no gallops or rubs, no JVD, no peripheral edema GASTROINTESTINAL: soft, nontender, ND, no guarding MUSCULOSKELETAL: generalized weakness, head is normocephalic and atraumatic, SKIN: warm and dry NEUROLOGIC: CN 2-12 grossly intact, no sensory deficit, normal cognition, normal speech, no tremor PSYCHIATRIC: alert cooperative and oriented to person, place and time. Euthymic mood, makes good eye contact, language grossly intact, recent and remote memory grossly intact. Results & Data Results & Data Vital Signs (Past 12 Hours) Vital Signs Temp Pulse Pulse Resp BP Pulse Ox O2 Del Method 07/08/23 16:31 60 07/08/23 15:25 36.5 C 61 18 138/67 90 Nasal Cannula 07/08/23 12:06 36.4 C L 64 19 155/66 H 90 Nasal Cannula 07/08/23 09:59 Nasal Cannula 07/08/23 08:58 60 O2 Flow Rate 07/08/23 16:31 07/08/23 15:25 2 07/08/23 12:06 2 07/08/23 09:59 2 07/08/23 08:58 Laboratory Results Short CBC 07/08/23 Range/Units 06:49 WBC 15.18 H (4.8-10.8) K/ul Hgb 9.1 L (12.0-16.0) g/dl Hct 27.9 L (37.0-47.0) % Plt Count 319 (130-400) K/uL BMP 07/08/23 06:49 Sodium 140 Potassium 3.8 Chloride 109 H Carbon Dioxide 19 L BUN 44 H Creatinine 2.35 H D Glucose 121 H Calcium 8.3 L Diagnostic Findings Videofluoroscopic Swallow 07/08/23 10:30 FL video swallow CLINICAL HISTORY: 87 years-old Female with r/o aspiration. Dysphasia TECHNIQUE: Video fluoroscopic evaluation of swallowing was performed in the AP and lateral projections by the speech pathology staff. The patient is fed varying consistencies of barium. FLUOROSCOPY TIME: 2.36 minutes. 3128 images. 12.4 mGy COMPARISON STUDY: None. FINDINGS: There is normal hyoid excursion and epiglottic deflection. No significant penetration or aspiration identified. Swallowing function is within normal limits. IMPRESSION: 1. No aspiration identified. 2. Please see the speech pathologist report for detailed findings and recommendations. ACT 112: Negative or not required by law. Electronically signed by: Paul Cuenca M.D. 07/08/2023 11:35 AM Medications Administered Current Inpatient Medications Albuterol (Albuterol Hfa 8 Gm Inhaler) 2 puffs INH Q6H PRN PRN Reason: SOB/Wheezing Stop: 08/05/23 14:59 Amiodarone HCl (Amiodarone 200 Mg Tab) 200 mg PO DAILY MANUEL Stop: 08/06/23 08:59 Last Admin: 07/08/23 09:25 Dose: 200 mg Diltiazem HCl (Diltiazem Hcl 120 Mg Capcr) 120 mg PO DAILY MANUEL Stop: 08/06/23 08:59 Last Admin: 07/08/23 09:24 Dose: 120 mg Docusate Sodium (Docusate Sodium 100 Mg Cap) 100 mg PO BID MANUEL Stop: 08/05/23 20:59 Last Admin: 07/08/23 09:25 Dose: Not Given Donepezil HCl (Donepezil Hcl 5 Mg Tab) 5 mg PO QPM MANUEL Stop: 08/05/23 20:59 Last Admin: 07/07/23 20:46 Dose: 5 mg Furosemide (Furosemide 40 Mg Tab) 40 mg PO QAM [facility] Stop: 08/07/23 08:59 Last Admin: 07/08/23 09:24 Dose: 40 mg Hydrocortisone (Hydrocortisone 2.5% Cr 30 Gm Tube) 1 appln EXT BID PRN PRN Reason: RECTAL IRRITATION Stop: 08/05/23 14:17 Vancomycin HCl 500 mg/ Sodium (Chloride) 110 mls @ 132 mls/hr IV Q24H [facility] Stop: 08/08/23 00:00 Last Infusion: 07/07/23 13:25 Dose: Infused Ceftriaxone Sodium 1,000 mg/ (Dextrose) 50 mls @ 100 mls/hr IV Q24H [facility]; Protocol Stop: 07/14/23 10:59 Last Infusion: 07/07/23 21:21 Dose: Infused Metronidazole (Flagyl) 500 mg in 100 mls @ 100 mls/hr IV Q8H [facility]; Protocol Stop: 07/14/23 10:59 Last Admin: 07/08/23 18:58 Dose: 100 mls/hr Levothyroxine Sodium (Levothyroxine Sodium 25 Mcg Tablet) 25 mcg PO DAILYBB [facility] Stop: 08/06/23 06:29 Last Admin: 07/08/23 05:45 Dose: 25 mcg Metoprolol Succinate (Metoprolol Succ 25mg Ext Rel Tab) 25 mg PO DAILY [facility] Stop: 08/06/23 08:59 Last Admin: 07/08/23 09:25 Dose: 25 mg Mirtazapine (Mirtazapine Tab 15 Mg Tab) 7.5 mg PO HS [facility] Stop: 08/05/23 20:59 Last Admin: 07/06/23 20:03 Dose: Not Given Miscellaneous Information (Vancomycin Consult Active) 1 each N/A UD PRN PRN Reason: Consult Stop: 08/05/23 12:01 Olanzapine (Olanzapine 10 Mg/2.1 Ml Sdv) 2.5 mg IM Q4H PRN PRN Reason: Anxiety/Agitation Stop: 08/06/23 01:55 Ondansetron HCl (Ondansetron 4 Mg Od Tab) 4 mg PO Q4 PRN PRN Reason: Nausea And Vomiting Stop: 08/05/23 14:17 Pantoprazole Sodium (Pantoprazole 40 Mg Tab) 40 mg PO DAILY [facility] Stop: 08/06/23 08:59 Last Admin: 07/08/23 09:25 Dose: 40 mg Vitamin D (Cholecalciferol 1,000 Units 25 Mcg Tab) 1,000 units PO QAM [facility] Stop: 08/06/23 08:59 Last Admin: 07/08/23 09:24 Dose: 1,000 units (2) Aspiration pneumonia of right lung Aspiration pneumonia type: unspecified Lung location: unspecified part of lung Qualified Code(s): J69.0 - Pneumonitis due to inhalation of food and vomit
[2023-07-08] MEDS: cefTRIAXone SODIUM 1,000 MG in DEXTROSE 5% AD-VAN 50 ML IV SCH (19:57)
[2023-07-08] MEDS: VANCOMYCIN HCL 500 MG in NSS 100mL IV SCH (20:00)
[2023-07-08] MEDS: SODIUM CHLORIDE 0.9% 1000ML 1,000 ML IV SCH (20:42)
[2023-07-08] MEDS: DONEPEZIL HCL 5 MG TAB PO SCH (21:20)
[2023-07-08] MEDS: MIRTAZAPINE TAB 15 MG TAB PO SCH (21:20)
[2023-07-08 22:13] LABS: Adenovirus F 40/41 PCR Not Detected (NotDetected); Astrovirus PCR Not Detected (NotDetected); Campylobacter PCR Not Detected (NotDetected); Cryptosporidium PCR Not Detected (NotDetected); Cyclospora cayetanensis PCR Not Detected (NotDetected); Entamoeba histolytica PCR Not Detected (NotDetected); Enteroaggregative E.coli(EAEC) Not Detected (NotDetected); Enteropathogenic E.coli (EPEC) Not Detected (NotDetected); Enterotoxigenic E.coli (ETEC) Not Detected (NotDetected); Giardia lamblia PCR Not Detected (NotDetected); Norovirus GI/GII PCR Not Detected (NotDetected); Plesiomonas shigelloides PCR Not Detected (NotDetected); Rotavirus A PCR Not Detected (NotDetected); Salmonella PCR Not Detected (NotDetected); Sapovirus PCR Not Detected (NotDetected); Shiga-like Toxin E.coli (STEC) Not Detected (NotDetected); Shigella/Enteroinvasive E.coli Not Detected (NotDetected); Vibrio cholerae PCR Not Detected (NotDetected); Vibrio species PCR Not Detected (NotDetected); Yersinia enterocolitica PCR Not Detected (NotDetected)
[2023-07-09] MEDS: metroNIDAZOLE 500 MG/100 ML BAG IV SCH ×3 (01:44→17:37)
[2023-07-09] MEDS: LEVOTHYROXINE SODIUM 25 MCG TABLET PO SCH (05:31)
[2023-07-09 07:38] LABS: Hematocrit (blood only) 29.9 % (37.0-47.0); Hemoglobin 9.5 g/dl (12.0-16.0); Mean Corpuscular Hemoglobin 29.6 pg (25.0-34.0); Mean Corpuscular Hgb Conc 31.8 g/dL (32.0-36.0); Mean Corpuscular Volume 93.1 fL (80.0-100.0); Mean Platelet Volume 10.2 fL (9.4-12.4); Platelet Count 376 K/uL (130-400); RDW Coefficient of Variation 17.7 % (11.5-14.5); RDW Standard Deviation 59.3 fL (36.4-46.3); Red Blood Count 3.21 M/uL (4.20-5.40); White Blood Count 13.28 K/ul (4.8-10.8)
[2023-07-09 07:59] LABS: BUN Creatinine Ratio 18.9 (10-20); Calcium 8.3 mg/dl (8.6-10.3); Creatinine Clr Calc Pharmacy 14.9 ml/min; Est GFR (African American) 22.7 ml/min; Est GFR (Non-African American) 19.6 ml/min; Magnesium 1.9 mg/dl (1.7-2.4); Potassium 3.4 mmol/L (3.5-5.1)
[2023-07-09] MEDS: SODIUM CHLORIDE 0.9% 1000ML 1,000 ML IV SCH (08:20)
[2023-07-09] MEDS: DOCUSATE SODIUM 100 MG CAP PO SCH ×2 (08:21→20:23)
[2023-07-09] MEDS: dilTIAZem HCL 120 MG CAPCR PO SCH (08:21)
[2023-07-09] MEDS: METOPROLOL SUCC 25MG EXT REL TAB PO SCH (08:21)
[2023-07-09] MEDS: CHOLECALCIFEROL 1,000 UNITS 25 MCG TAB PO SCH (08:21)
[2023-07-09] MEDS: AMIODARONE 200 MG TAB PO SCH (08:22)
[2023-07-09] MEDS: PANTOprazole 40 MG TAB PO SCH (08:22)
[2023-07-09] MEDS ORDERED: POTASSIUM CHLORIDE CRTAB 20 MEQ TABCR PO STA (09:00)
--- NOTE | 2023-07-09 17:35 | Hospitalist Progress Note ---
Date of Service July 09, 2023 Assessment & Plan (1) Acute hypoxemic respiratory failure: Plan: Acute respiratory failure 2/2 multifocal pneumonia Chest x-ray and CT evidence of multifocal pneumonia on admission WBC chronically elevated, procalcitonin negative, biofire completely negative, BCx negative to date Per ED provider, pt received Lasix 40mg [facility] with no improvement in symptoms. Subsequently received 500mls of NSS in the ED. One dose of zosyn given in the ED and this was continued Given known renal complications associated wtih combination Vanc/Zosyn together, Zosyn was changed to Rocephin/flagyl Respiratory support was de-escalated from BiPAP down to oxygen Speech performed video swallow study today that revealed no evidence of aspiration. Cont abx and oxygen support Ambulate early and often! Incentive spirometer at bedside Clinically remains weak and lethargic with minimal improvement PT is performed and recommended rehab If remains stable will be discharged to rehab tomorrow Hx of bacteremia/ICD currently in place Last admission from 06/22 to 06/27 with noted bacteremia. ID recommended removal of ICD and she was transferred to [facility] to have procedure done. However, the procedure was deemed to risky but fortunately pt also had negative blood cultures while there. The decision was made to keep the ICD in. Repeat Blood Cx x2 are negative to date. Continue IV Vancomycin until 08/08/2023 per [facility] infectious disease. Pharmacy consulted to manage. We will continue antibiotic for pneumonia for a total of 7 to 10 days and then continue with vancomycin as planned (2) Aspiration pneumonia of right lung: Plan: No evidence of aspiration as per video swallow (3) Elevated troponin: Plan: Demand ischemia Elevated HS troponin, no evidence of ACS. Remains chest pain-free. Repeat echo 07/06 reveals severe aortic calcification, additional valvulopathy, grade II diastolic dysfunction, pulmonary hypertension and EF 55-60%. No further inpatient work-up at this time (4) AWA (acute kidney injury): Plan: Acute kidney injury in setting of CKD Baseline creatinine is around 1.5 and today she is 2.03. She initially received 500cc NSS, and then later albumin with Lasix 60mg IV around 0430 followed by her "home" dose of Lasix 40mg PO this morning. Per home med list she takes this daily, however, on the med rec from recent hospital discharge Lasix 20mg PO daily had been discontinued. Her home med list was updated to reflect this. There is no evidence of fluid overload at this point and she is breathing better today Repeat BMP this morning with rising creatinine. Lasix stopped. Repeat BMP in am. Creatinine has been remains stable at around 2.2 (5) Cardiomyopathy: (6) HTN (hypertension): (7) PAF (paroxysmal atrial fibrillation): Plan: PAF, NSVT, HOCM with dual chamber AICD in place Follows with Cardiology chronic, stable. Continue amiodarone, metoprolol, diltiazem and Coumadin for a fib anticoagulation INR elevated, cont holding warfarin Plan Patient is an 87-year-old female with a significant history of paroxysmal atrial fibrillation on warfarin, nonsustained V. tach, hypertrophic cardiomyopathy status post ICD placement, CKD stage III and dementia. On 06/22 she was brought to [facility] with acute onset malaise chills and vomiting and 2 days of diarrhea. She was disoriented at the time of admission and lactate was elevated. CT imaging showed splenic infarcts and possible endocarditis. 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 She was started on Zosyn and metronidazole. Blood cultures revealed MRSA with growth in 4 out of 4 bottles. Zosyn was discontinued and therapy with daptomycin was initiated. She had a significant increase in creatinine from 1.7-3.3. Daptomycin was switched to vancomycin. A DAVEY performed on 06/25 revealed no vegetations however infected ICD was suspected with further possible ICD removal recommended by ID. She was transferred to [facility] for further management on 06/26. EP, cardiology and ID were consulted. During the hospital stay it was felt that removing her ICD was too risky and her cultures ended up clearing. It was decided the best plan of care would be to continue IV vancomycin for 6 weeks. She was discharged on 07/03 to [facility]. Daughter reports that she was not out of bed much at the hospital stay and she does have some issues with swallowing and possible aspiration. Just prior to arrival she had a rapid worsening of respiratory distress requiring BiPAP. Full sepsis resuscitation was avoided with history of cardiomyopathy and concern for overloading her. Aspiration pneumonia was suspected. Elevated troponin was seen and thought secondary to demand mismatch ischemia with no clear evidence of ACS on EKG and patient was denying chest pain. Hx of pleural effusions Will monitor with repeat imaging after treatment. Lasix stopped as noted above. Malnutrition chroinc, stable. On remeron, continue Hypothyroidism chronic, stable. Continue levothyroxine GERD chronic, stable. Continue home ppi Memory loss/Dementia chronic, some increased disorientation as she is oriented only to person. Possibly some worsened confusion in the setting of known h/o dementia. Continue donepezil per home regimen. CODE STATUS: Full code Diet: easy to chew DVT prophylaxis: warfarin with therapeutic INR. Dispo: cont PCU Discussed with the daughter in detail Condition remains stable likely be discharged tomorrow to [facility] Admission and Anticipated Discharge Date Admission Date: July 06, 2023 Subjective 07/09/2023 The patient was seen and examined in telemetry unit in presence of the daughter She remains weak and lethargic and has been requiring 2 L to maintain saturation Minimal shortness of breath at rest Complains to have some stomach upset Review of Systems Review of Systems: All systems reviewed and are unremarkable except as noted below Physical Exam Physical Exam: Sitting on a chair with minimal respiratory distress Constitutional: + ill appearing and + thin Eyes: PERRL, conjunctivae normal, anicteric sclerae ENMT: external ear and nose normal, oropharynx normal Neck: trachea midline, no thyromegaly Respiratory: + respiratory distress (Minimal distress at rest) Auscultation: + diminished lung sounds and + crackles (Bibasilar crackles) Cardiovascular: Rate/Rhythm: regular rate and regular rhythm; not tachycardic Heart Sounds: normal S1, normal S2 and + murmur Extremities: no edema Gastrointestinal (Abdomen): Inspection/Auscultation: normal bowel sounds; abdomen not distended Percussion/Palpation: abdomen soft; abdomen nontender Musculoskeletal: No acute arthritis involving any of the joint Neurologic: Alert and awake. Remains very weak and lethargic Lymphatic: no cervical or axillary lymphadenopathy Results & Data Results & Data Vital Signs (Past 12 Hours) Vital Signs Temp Pulse Pulse Resp BP Pulse Ox Pulse Ox 07/09/23 15:46 36.6 C 67 20 159/79 H 90 07/09/23 15:11 66 07/09/23 12:05 36.6 C 66 15 157/82 H 91 07/09/23 08:00 92 07/09/23 08:03 36.4 C L 86 15 155/67 H 92 07/09/23 07:51 74 O2 Del Method O2 Flow Rate 07/09/23 15:46 Nasal Cannula 2 07/09/23 15:11 07/09/23 12:05 Room Air 07/09/23 08:00 07/09/23 08:03 Nasal Cannula 2 07/09/23 07:51 Laboratory Results Short CBC 07/09/23 Range/Units 06:41 WBC 13.28 H (4.8-10.8) K/ul Hgb 9.5 L (12.0-16.0) g/dl Hct 29.9 L (37.0-47.0) % Plt Count 376 (130-400) K/uL BMP 07/09/23 06:41 Sodium 141 Potassium 3.4 L Chloride 109 H Carbon Dioxide 19 L BUN 42 H Creatinine 2.22 H Glucose 122 H Calcium 8.3 L Medications Administered Current Inpatient Medications Albuterol (Albuterol Hfa 8 Gm Inhaler) 2 puffs INH Q6H PRN PRN Reason: SOB/Wheezing Stop: 08/05/23 14:59 Amiodarone HCl (Amiodarone 200 Mg Tab) 200 mg PO DAILY [facility] Stop: 08/06/23 08:59 Last Admin: 07/09/23 08:22 Dose: 200 mg Diltiazem HCl (Diltiazem Hcl 120 Mg Capcr) 120 mg PO DAILY [facility]UEL Stop: 08/06/23 08:59 Last Admin: 07/09/23 08:21 Dose: 120 mg Docusate Sodium (Docusate Sodium 100 Mg Cap) 100 mg PO BID MANUEL Stop: 08/05/23 20:59 Last Admin: 07/09/23 08:21 Dose: 100 mg Donepezil HCl (Donepezil Hcl 5 Mg Tab) 5 mg PO QPM [facility] Stop: 08/05/23 20:59 Last Admin: 07/08/23 21:20 Dose: Not Given Hydrocortisone (Hydrocortisone 2.5% Cr 30 Gm Tube) 1 appln EXT BID PRN PRN Reason: RECTAL IRRITATION Stop: 08/05/23 14:17 Vancomycin HCl 500 mg/ Sodium (Chloride) 110 mls @ 132 mls/hr IV Q24H [facility] Stop: 08/08/23 00:00 Last Infusion: 07/08/23 20:50 Dose: Infused Ceftriaxone Sodium 1,000 mg/ (Dextrose) 50 mls @ 100 mls/hr IV Q24H [facility]; Protocol Stop: 07/14/23 10:59 Last Infusion: 07/08/23 20:27 Dose: Infused Metronidazole (Flagyl) 500 mg in 100 mls @ 100 mls/hr IV Q8H [facility]; Protocol Stop: 07/14/23 10:59 Last Infusion: 07/09/23 10:15 Dose: Infused Sodium Chloride (Nss 1000ml) 1,000 mls @ 80 mls/hr IV .[id number] [facility] Stop: 07/09/23 20:59 Last Admin: 07/09/23 08:20 Dose: 80 mls/hr Levothyroxine Sodium (Levothyroxine Sodium 25 Mcg Tablet) 25 mcg PO DAILYBB [facility] Stop: 08/06/23 06:29 Last Admin: 07/09/23 05:31 Dose: 25 mcg Metoprolol Succinate (Metoprolol Succ 25mg Ext Rel Tab) 25 mg PO DAILY [facility] Stop: 08/06/23 08:59 Last Admin: 07/09/23 08:21 Dose: 25 mg Mirtazapine (Mirtazapine Tab 15 Mg Tab) 7.5 mg PO HS [facility] Stop: 08/05/23 20:59 Last Admin: 07/08/23 21:20 Dose: Not Given Miscellaneous Information (Vancomycin Consult Active) 1 each N/A UD PRN PRN Reason: Consult Stop: 08/05/23 12:01 Olanzapine (Olanzapine 10 Mg/2.1 Ml Sdv) 2.5 mg IM Q4H PRN PRN Reason: Anxiety/Agitation Stop: 08/06/23 01:55 Ondansetron HCl (Ondansetron 4 Mg Od Tab) 4 mg PO Q4 PRN PRN Reason: Nausea And Vomiting Stop: 08/05/23 14:17 Pantoprazole Sodium (Pantoprazole 40 Mg Tab) 40 mg PO DAILY [facility] Stop: 08/06/23 08:59 Last Admin: 07/09/23 08:22 Dose: 40 mg Vitamin D (Cholecalciferol 1,000 Units 25 Mcg Tab) 1,000 units PO QAM [facility] Stop: 08/06/23 08:59 Last Admin: 07/09/23 08:21 Dose: 1,000 units (2) Aspiration pneumonia of right lung Aspiration pneumonia type: unspecified Lung location: unspecified part of lung Qualified Code(s): J69.0 - Pneumonitis due to inhalation of food and vomit
[2023-07-09] MEDS: MIRTAZAPINE TAB 15 MG TAB PO SCH (20:22)
[2023-07-09] MEDS: DONEPEZIL HCL 5 MG TAB PO SCH (20:23)
[2023-07-09] MEDS: cefTRIAXone SODIUM 1,000 MG in DEXTROSE 5% AD-VAN 50 ML IV SCH (20:39)
[2023-07-09] MEDS: VANCOMYCIN HCL 500 MG in NSS 100mL IV SCH (21:26)
[2023-07-10] MEDS: metroNIDAZOLE 500 MG/100 ML BAG IV SCH ×3 (02:51→18:24)
[2023-07-10 08:50] LABS: Basophils # (auto) 0.05 K/uL (0-0.2); Basophils % (auto) 0.4 %; Eosinophils # (auto) 0.02 K/uL (0-0.50); Eosinophils % (auto) 0.1 %; Hematocrit (blood only) 29.5 % (37.0-47.0); Hemoglobin 9.6 g/dl (12.0-16.0); Immature Granulocytes # (auto) 0.17 K/uL (0.01-0.20); Immature Granulocytes % (auto) 1.3 %; Lymphocytes # (auto) 0.34 K/uL (1.2-3.4); Lymphocytes % (auto) 2.5 %; Mean Corpuscular Hemoglobin 29.6 pg (25.0-34.0); Mean Corpuscular Hgb Conc 32.5 g/dL (32.0-36.0); Mean Platelet Volume 10.3 fL (9.4-12.4); Monocytes # (auto) 0.86 K/uL (0.11-0.59); Monocytes % (auto) 6.4 %; Neutrophils % (auto) 89.3 %; Platelet Count 315 K/uL (130-400); RDW Coefficient of Variation 17.6 % (11.5-14.5); RDW Standard Deviation 58.6 fL (36.4-46.3); Red Blood Count 3.24 M/uL (4.20-5.40); White Blood Count 13.34 K/ul (4.8-10.8)
[2023-07-10 09:01] LABS: BUN Creatinine Ratio 19.4 (10-20); Calcium 8.3 mg/dl (8.6-10.3); Creatinine Clr Calc Pharmacy 17.8 ml/min; Est GFR (African American) 26.4 ml/min; Est GFR (Non-African American) 22.8 ml/min; Magnesium 1.9 mg/dl (1.7-2.4); Phosphorus 3.4 mg/dl (2.5-4.9); Potassium 3.4 mmol/L (3.5-5.1)
[2023-07-10] MEDS: AMIODARONE 200 MG TAB PO SCH (09:08)
[2023-07-10] MEDS: METOPROLOL SUCC 25MG EXT REL TAB PO SCH (09:08)
[2023-07-10] MEDS: DOCUSATE SODIUM 100 MG CAP PO SCH ×2 (09:09→20:14)
[2023-07-10] MEDS: LEVOTHYROXINE SODIUM 25 MCG TABLET PO SCH (09:09)
[2023-07-10] MEDS: PANTOprazole 40 MG TAB PO SCH (09:09)
[2023-07-10] MEDS: CHOLECALCIFEROL 1,000 UNITS 25 MCG TAB PO SCH (09:09)
[2023-07-10] MEDS: dilTIAZem HCL 120 MG CAPCR PO SCH (09:09)
[2023-07-10 11:40] LABS: Prothrombin Time 55.3 Seconds (9.0-12.0)
[2023-07-10 11:54] LABS: INR 5.6 (0.9-1.1)
[2023-07-10] MEDS ORDERED: ALTEPLASE, RECOMBINANT 1 MG/ML 2ML VIAL INSTIL ONE ×2 (13:14→14:00)
--- NOTE | 2023-07-10 13:44 | Pharmacy Report ---
Pharmacy PK ABX Note - Date of Service July 10, 2023 - Assessment and Plan Assessment 87 year old F receiving vancomycin for treatment of MRSA bacteremia/infected ICD. Receiving vancomycin 750mg IV q24h in the outpatient setting per [facility] (X 6 weeks of therapy). Prior doses from [facility] and [facility] confirmed via Epic and via phone call respectively. Labile renal function - serum creatinine had risen 07/07-07/08 and is now decreasing. Currently 1.96 mg/dL (highest point was 2.35 mg/dL) Blood cultures x 2 (06/24/23): MRSA Blood cultures x 2 (07/06/23): no growth at 24 hours Urine culture (07/06/23): alexander-sensitive Klebsiella pneumoniae Day # 114 of antimicrobial therapy. Plan Vancomycin * Current regimen: 500 mg IV every 24 hours * Random level obtained 07/10/23 resulted as 22.2 mcg/mL. This is predicted to achieve target AUC/XIMENA of ~400 mg/L.hr * Due to history of MRSA bacteremia, will increase dose to obtain target AUC/XIMENA > 500 mg/L.hr * Predicted AUC at steady state: 598 mg/L.hr * Increase back to 750 mg IV every 24 hours * Will repeat level in the next 48-72 hours if therapy is continued and/or change in patient clinical status Pharmacy will continue to follow and will adjust dose/frequency as necessary. Thank you. Pharmacy has transitioned to AUC monitoring for vancomycin. AUC/XIMNEA is the preferred PK/PD target and is associated with decreased risk of nephrotoxicity compared to traditional trough targets.
--- NOTE | 2023-07-10 16:00 | Hospitalist Progress Note ---
Date of Service July 10, 2023 Assessment & Plan (1) Acute hypoxemic respiratory failure: Plan: Acute respiratory failure 2/2 multifocal pneumonia Chest x-ray and CT evidence of multifocal pneumonia on admission WBC chronically elevated, procalcitonin negative, biofire completely negative, BCx negative to date Per ED provider, pt received Lasix 40mg [facility] with no improvement in symptoms. Subsequently received 500mls of NSS in the ED. One dose of zosyn given in the ED and this was continued Given known renal complications associated wtih combination Vanc/Zosyn together, Zosyn was changed to Rocephin/flagyl Respiratory support was de-escalated from BiPAP down to oxygen Speech performed video swallow study today that revealed no evidence of aspiration. Cont abx and oxygen support Ambulate early and often! Incentive spirometer at bedside Clinically remains weak and lethargic with minimal improvement PT is performed and recommended rehab Clinically a little better,But has been requiring 6 L to maintain saturation Will get chest x-ray tomorrow to evaluate pneumonia further Hx of bacteremia/ICD currently in place Last admission from 06/22 to 06/27 with noted bacteremia. ID recommended removal of ICD and she was transferred to [facility] to have procedure done. However, the procedure was deemed to risky but fortunately pt also had negative blood cultures while there. The decision was made to keep the ICD in. Repeat Blood Cx x2 are negative to date. Continue IV Vancomycin until 08/08/2023 per [facility] infectious disease. Pharmacy consulted to manage. We will continue antibiotic for pneumonia for a total of 7 to 10 days and then continue with vancomycin as planned (2) Aspiration pneumonia of right lung: Plan: No evidence of aspiration as per video swallow (3) Elevated troponin: Plan: Demand ischemia Elevated HS troponin, no evidence of ACS. Remains chest pain-free. Repeat echo 07/06 reveals severe aortic calcification, additional valvulopathy, grade II diastolic dysfunction, pulmonary hypertension and EF 55-60%. No further inpatient work-up at this time (4) AWA (acute kidney injury): Plan: Acute kidney injury in setting of CKD Baseline creatinine is around 1.5 and today she is 2.03. She initially received 500cc NSS, and then later albumin with Lasix 60mg IV around 0430 followed by her "home" dose of Lasix 40mg PO this morning. Per home med list she takes this daily, however, on the med rec from recent hospital discharge Lasix 20mg PO daily had been discontinued. Her home med list was updated to reflect this. There is no evidence of fluid overload at this point and she is breathing better today Repeat BMP this morning with rising creatinine. Lasix stopped. Repeat BMP in am. Creatinine has been remains stable at around 2.2 Creatinine is even better today (5) Cardiomyopathy: (6) HTN (hypertension): (7) PAF (paroxysmal atrial fibrillation): Plan: PAF, NSVT, HOCM with dual chamber AICD in place Follows with Cardiology chronic, stable. Continue amiodarone, metoprolol, diltiazem and Coumadin for a fib anticoagulation INR elevated, cont holding warfarin Plan Patient is an 87-year-old female with a significant history of paroxysmal atrial fibrillation on warfarin, nonsustained V. tach, hypertrophic cardiomyopathy sta tus post ICD placement, CKD stage III and dementia. On 06/22 she was [facility] to [facility] with acute onset malaise chills and vomiting and 2 days of diarrhea. She was disoriented at the time of admission and lactate was elevated. CT imaging showed splenic infarcts and possible endocarditis. 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 She was started on Zosyn and metronidazole. Blood cultures revealed MRSA with growth in 4 out of 4 bottles. Zosyn was discontinued and therapy with daptomycin was initiated. She had a significant increase in creatinine from 1.7-3.3. Daptomycin was switched to vancomycin. A DAVEY performed on 06/25 revealed no vegetations however infected ICD was suspected with further possible ICD removal recommended by ID. She was transferred to [facility] for further management on 06/26. EP, cardiology and ID were consulted. During the hospital stay it was felt that removing her ICD was too risky and her cultures ended up clearing. It was decided the best plan of care would be to continue IV vancomycin for 6 weeks. She was discharged on 07/03 to [facility]. Daughter reports that she was not out of bed much at the hospital stay and she does have some issues with swallowing and possible aspiration. Just prior to arrival she had a rapid worsening of respiratory distress requiring BiPAP. Full sepsis resuscitation was avoided with history of car diomyopathy and concern for overloading her. Aspiration pneumonia was suspected. Elevated troponin was seen and thought secondary to demand mismatch ischemia with no clear evidence of ACS on EKG and patient was denying chest pain. Hx of pleural effusions Will monitor with repeat imaging after treatment. Lasix stopped as noted above. Malnutrition chroinc, stable. On remeron, continue Hypothyroidism chronic, stable. Continue levothyroxine GERD chronic, stable. Continue home ppi Memory loss/Dementia chronic, some increased disorientation as she is oriented only to person. Possibly some worsened confusion in the setting of known h/o dementia. Continue donepezil per home regimen. CODE STATUS: Full code Diet: easy to chew DVT prophylaxis: warfarin with therapeutic INR. Dispo: cont PCU Discussed with the daughter in detail Condition remains stable likely be discharged tomorrow to [facility] Not yet ready to be discharged Admission and Anticipated Discharge Date Admission Date: July 06, 2023 Subjective 07/09/2023 The patient was seen and examined in telemetry unit in presence of the daughter She remains weak and lethargic and has been requiring 2 L to maintain saturation Minimal shortness of breath at rest Complains to have some stomach upset 07/10/2023 The patient was seen and examined in telemetry unit She has been feeling better today but still remains extremely weak and lethargic Mild shortness of breath at rest and has been requiring 6 L to maintain saturation Not yet ready to be transferred to [facility] Review of Systems Review of Systems: All systems reviewed and are unremarkable except as noted below Physical Exam Physical Exam: Sitting on a chair with minimal respiratory distress Constitutional: + ill appearing and + thin Eyes: PERRL, conjunctivae normal, anicteric sclerae ENMT: external ear and nose normal, oropharynx normal Neck: trachea midline, no thyromegaly Respiratory: + respiratory distress (Minimal distress at rest) Auscultation: + diminished lung sounds and + crackles (Bibasilar crackles) Cardiovascular: Rate/Rhythm: regular rate and regular rhythm; not tachycardic Heart Sounds: normal S1, normal S2 and + murmur Extremities: no edema Gastrointestinal (Abdomen): Inspection/Auscultation: normal bowel sounds; abdomen not distended Percussion/Palpation: abdomen soft; abdomen nontender Musculoskeletal: No acute arthritis involving any joint Neurologic: Alert and awake. Generally very weak and lethargic Lymphatic: no cervical or axillary lymphadenopathy Results & Data Results & Data Vital Signs (Past 12 Hours) Vital Signs Temp Pulse Pulse Resp BP Pulse Ox Pulse Ox 07/10/23 15:39 36.6 C 72 17 150/75 H 93 07/10/23 11:55 36.6 C 80 16 159/78 H 90 07/10/23 08:00 07/10/23 08:00 92 07/10/23 07:00 70 07/10/23 07:45 36.6 C 73 18 154/76 H 90 O2 Del Method O2 Del Method O2 Flow Rate O2 Flow Rate 07/10/23 15:39 Nasal Cannula 6 07/10/23 11:55 Nasal Cannula 5 07/10/23 08:00 Nasal Cannula 5 07/10/23 08:00 Nasal Cannula 5 07/10/23 07:00 07/10/23 07:45 Nasal Cannula 4 Laboratory Results Short CBC 07/10/23 Range/Units 07:32 WBC 13.34 H (4.8-10.8) K/ul Hgb 9.6 L (12.0-16.0) g/dl Hct 29.5 L (37.0-47.0) % Plt Count 315 (130-400) K/uL BMP 07/10/23 07:32 Sodium 142 Potassium 3.4 L Chloride 111 H Carbon Dioxide 17 L BUN 38 H Creatinine 1.96 H Glucose 121 H Calcium 8.3 L Medications Administered Current Inpatient Medications Albuterol (Albuterol Hfa 8 Gm Inhaler) 2 puffs INH Q6H PRN PRN Reason: SOB/Wheezing Stop: 08/05/23 14:59 Amiodarone HCl (Amiodarone 200 Mg Tab) 200 mg PO DAILY [facility] Stop: 08/06/23 08:59 Last Admin: 07/10/23 09:08 Dose: 200 mg Diltiazem HCl (Diltiazem Hcl 120 Mg Capcr) 120 mg PO DAILY [facility] Stop: 08/06/23 08:59 Last Admin: 07/10/23 09:09 Dose: 120 mg Docusate Sodium (Docusate Sodium 100 Mg Cap) 100 mg PO BID [facility] Stop: 08/05/23 20:59 Last Admin: 07/10/23 09:09 Dose: 100 mg Donepezil HCl (Donepezil Hcl 5 Mg Tab) 5 mg PO QPM [facility] Stop: 08/05/23 20:59 Last Admin: 07/09/23 20:23 Dose: 5 mg Hydrocortisone (Hydrocortisone 2.5% Cr 30 Gm Tube) 1 appln EXT BID PRN PRN Reason: RECTAL IRRITATION Stop: 08/05/23 14:17 Ceftriaxone Sodium 1,000 mg/ (Dextrose) 50 mls @ 100 mls/hr IV Q24H [facility]; Protocol Stop: 07/14/23 10:59 Last Infusion: 07/09/23 21:09 Dose: Infused Metronidazole (Flagyl) 500 mg in 100 mls @ 100 mls/hr IV Q8H [facility]; Protocol Stop: 07/14/23 10:59 Last Admin: 07/10/23 14:06 Dose: Not Given Vancomycin HCl 750 mg/ Sodium (Chloride) 265 mls @ 200 mls/hr IV Q24H [facility] Stop: 07/24/23 13:44 Levothyroxine Sodium (Levothyroxine Sodium 25 Mcg Tablet) 25 mcg PO DAILYBB [facility] Stop: 08/06/23 06:29 Last Admin: 07/10/23 09:09 Dose: 25 mcg Metoprolol Succinate (Metoprolol Succ 25mg Ext Rel Tab) 25 mg PO DAILY [facility] Stop: 08/06/23 08:59 Last Admin: 07/10/23 09:08 Dose: 25 mg Mirtazapine (Mirtazapine Tab 15 Mg Tab) 7.5 mg PO HS [facility] Stop: 08/05/23 20:59 Last Admin: 07/09/23 20:22 Dose: 7.5 mg Miscellaneous Information (Vancomycin Consult Active) 1 each N/A UD PRN PRN Reason: Consult Stop: 08/05/23 12:01 Olanzapine (Olanzapine 10 Mg/2.1 Ml Sdv) 2.5 mg IM Q4H PRN PRN Reason: Anxiety/Agitation Stop: 08/06/23 01:55 Ondansetron HCl (Ondansetron 4 Mg Od Tab) 4 mg PO Q4 PRN PRN Reason: Nausea And Vomiting Stop: 08/05/23 14:17 Pantoprazole Sodium (Pantoprazole 40 Mg Tab) 40 mg PO DAILY [facility] Stop: 08/06/23 08:59 Last Admin: 07/10/23 09:09 Dose: 40 mg Vitamin D (Cholecalciferol 1,000 Units 25 Mcg Tab) 1,000 units PO QAM [facility] Stop: 08/06/23 08:59 Last Admin: 07/10/23 09:09 Dose: 1,000 units (2) Aspiration pneumonia of right lung Aspiration pneumonia type: unspecified Lung location: unspecified part of lung Qualified Code(s): J69.0 - Pneumonitis due to inhalation of food and vomit
[2023-07-10] MEDS ORDERED: VANCOMYCIN HCL 750 MG in SODIUM CHLORIDE 0.9% 250 ML IV SCH (20:00)
[2023-07-10] MEDS: cefTRIAXone SODIUM 1,000 MG in DEXTROSE 5% AD-VAN 50 ML IV SCH (20:10)
[2023-07-10] MEDS: MIRTAZAPINE TAB 15 MG TAB PO SCH (20:14)
[2023-07-10] MEDS: DONEPEZIL HCL 5 MG TAB PO SCH (20:14)
[2023-07-10] MEDS ORDERED: FUROSEMIDE 40 MG/4 ML VIAL IV ONE (23:27)
[2023-07-11] MEDS: metroNIDAZOLE 500 MG/100 ML BAG IV SCH ×3 (02:10→17:36)
[2023-07-11] MEDS: LEVOTHYROXINE SODIUM 25 MCG TABLET PO SCH (05:15)
--- NOTE | 2023-07-11 07:03 | XRay Report ---
XR chest 1V portable HISTORY: 87 years-old Female hypoxia acute hypoxia COMPARISON: 07/07/2023 TECHNIQUE: AP view of the chest FINDINGS: Cardiac silhouette is enlarged. Atherosclerosis of the aorta. Left subclavian pacer/ICD. Right IJ stevenson tral venous catheter is unchanged. No pneumothorax. Increased size of the layering pleural effusions with persistent bibasilar consolidation and pulmonary edema. Mildly improved aeration of the right up per lobe suggested. Degenerative changes of the shoulders and spine. IMPRESSION: 1. Cardiomegaly with persistent pulmonary edema. 2. Stable to mildly increased size of the layering pleural effusions with persistent bibasilar consol idation. ACT 112: Negative or not required by law. The above report was generated using voice recognition software. It may contain grammatical, syntax o r spelling errors. Electronically signed by: Paul Cuenca M.D. 07/11/2023 7:01 AM
[2023-07-11 07:22] LABS: Basophils # (auto) 0.04 K/uL (0-0.2); Basophils % (auto) 0.3 %; Eosinophils # (auto) 0.03 K/uL (0-0.50); Eosinophils % (auto) 0.2 %; Hemoglobin 9.7 g/dl (12.0-16.0); Immature Granulocytes % (auto) 0.7 %; Lymphocytes # (auto) 0.57 K/uL (1.2-3.4); Lymphocytes % (auto) 4.2 %; Mean Corpuscular Hemoglobin 29.7 pg (25.0-34.0); Mean Corpuscular Hgb Conc 32.3 g/dL (32.0-36.0); Mean Corpuscular Volume 91.7 fL (80.0-100.0); Mean Platelet Volume 10.1 fL (9.4-12.4); Monocytes # (auto) 0.99 K/uL (0.11-0.59); Monocytes % (auto) 7.3 %; Neutrophils # (auto) 11.77 K/uL (1.40-6.50); Neutrophils % (auto) 87.3 %; Platelet Count 345 K/uL (130-400); RDW Coefficient of Variation 17.7 % (11.5-14.5); RDW Standard Deviation 58.4 fL (36.4-46.3); Red Blood Count 3.27 M/uL (4.20-5.40)
--- NOTE | 2023-07-11 07:33 | XRay Report ---
XR chest 1V portable CLINICAL HISTORY: Pneumonia TECHNIQUE: Single frontal radiograph of the chest was obtained. Comparison: Comparison is made to chest radiograph 07/10/2023 FINDINGS: Pacemaker defibrillator is seen. Cardiomegaly is noted. The aortic arch is calcified. Interval improv ement in pulmonary edema with mild to moderate edema remaining. Small bilateral pleural effusions are seen with underlying airspace opacities. IMPRESSION: 1. Cardiomegaly and mild pulmonary edema. This represents an improvement from prior exam. 2. Small bilateral pleural effusions with underlying airspace opacities. ACT 112: Negative or not required by law. Electronically signed by: Kayode Ann M.D. 07/11/2023 7:32 AM
[2023-07-11 07:39] LABS: Prothrombin Time 60.3 Seconds (9.0-12.0)
[2023-07-11 07:42] LABS: INR 6.2 (0.9-1.1)
[2023-07-11 08:18] LABS: BUN Creatinine Ratio 18.4 (10-20); Calcium 8.5 mg/dl (8.6-10.3); Est GFR (African American) 24.7 ml/min; Est GFR (Non-African American) 21.3 ml/min; Potassium 3.2 mmol/L (3.5-5.1)
[2023-07-11] MEDS ORDERED: POTASSIUM CHLORIDE / WTR 10 MEQ/100 ML PLCT IV ONE (08:48)
[2023-07-11] MEDS ORDERED: FUROSEMIDE 40 MG/4 ML VIAL IV ONE (08:48)
[2023-07-11] MEDS: DOCUSATE SODIUM 100 MG CAP PO SCH ×2 (08:55→21:00)
[2023-07-11] MEDS: PANTOprazole 40 MG TAB PO SCH (08:55)
[2023-07-11] MEDS: AMIODARONE 200 MG TAB PO SCH (08:55)
[2023-07-11] MEDS: METOPROLOL SUCC 25MG EXT REL TAB PO SCH (08:55)
[2023-07-11] MEDS: dilTIAZem HCL 120 MG CAPCR PO SCH (08:56)
[2023-07-11] MEDS: CHOLECALCIFEROL 1,000 UNITS 25 MCG TAB PO SCH (08:56)
--- NOTE | 2023-07-11 13:55 | Hospitalist Progress Note ---
Date of Service July 11, 2023 Assessment & Plan (1) Acute hypoxemic respiratory failure: Plan: Acute respiratory failure 2/2 multifocal pneumonia Chest x-ray and CT evidence of multifocal pneumonia on admission WBC chronically elevated, procalcitonin negative, biofire completely negative, BCx negative to date Per ED provider, pt received Lasix 40mg [employer]OR with no improvement in symptoms. Subsequently received 500mls of NSS in the ED. One dose of zosyn given in the ED and this was continued Given known renal complications associated wtih combination Vanc/Zosyn together, Zosyn was changed to Rocephin/flagyl Respiratory support was de-escalated from BiPAP down to oxygen Speech performed video swallow study today that revealed no evidence of aspiration. Cont abx and oxygen support Ambulate early and often! Incentive spirometer at bedside Clinically remains weak and lethargic with minimal improvement PT is performed and recommended rehab Clinically a little better,But has been requiring 6 L to maintain saturation Chest x-ray is showing cardiomegaly with mild pulmonary edema with slight improvement compared with prior. Small bilateral pleural effusions with underlying airspace opacities could be secondary to pneumonia Received another dose of Lasix 40 mg IV this morning We will continue current antibiotic Hx of bacteremia/ICD currently in place Last admission from 06/22 to 06/27 with noted bacteremia. ID recommended removal of ICD and she was transferred to [facility] to have procedure done. However, the procedure was deemed to risky but fortunately pt also had negative blood cultures while there. The decision was made to keep the ICD in. Repeat Blood Cx x2 are negative to date. Continue IV Vancomycin until 08/08/2023 per [facility] infectious disease. Pharmacy consulted to manage. We will continue antibiotic for pneumonia for a total of 7 to 10 days and then continue with vancomycin as planned (2) Aspiration pneumonia of right lung: Plan: No evidence of aspiration as per video swallow (3) Elevated troponin: Plan: Demand ischemia Elevated HS troponin, no evidence of ACS. Remains chest pain-free. Repeat echo 07/06 reveals severe aortic calcification, additional valvulopathy, grade II diastolic dysfunction, pulmonary hypertension and EF 55-60%. No further inpatient work-up at this time (4) AWA (acute kidney injury): Plan: Acute kidney injury in setting of CKD Baseline creatinine is around 1.5 and today she is 2.03. She initially received 500cc NSS, and then later albumin with Lasix 60mg IV around 0430 followed by her "home" dose of Lasix 40mg PO this morning. Per home med list she takes this daily, however, on the med rec from recent hospital discharge Lasix 20mg PO daily had been discontinued. Her home med list was updated to reflect this. There is no evidence of fluid overload at this point and she is breathing better today Repeat BMP this morning with rising creatinine. Lasix stopped. Repeat BMP in am. Creatinine has been remains stable at around 2.2 Creatinine is a little worse today at 2.07 (5) Cardiomyopathy: (6) HTN (hypertension): (7) PAF (paroxysmal atrial fibrillation): Plan: PAF, NSVT, HOCM with dual chamber AICD in place Follows with Cardiology chronic, stable. Continue amiodarone, metoprolol, diltiazem and Coumadin for a fib anticoagulation INR elevated, cont holding warfarin INR remains elevated likely secondary to use of antibiotic-no evidence of bleeding Plan Patient is an 87-year-old female with a significant history of paroxysmal atrial fibrillation on warfarin, nonsustained V. tach, hypertrophic cardiomyopathy status post ICD placement, CKD stage III and dementia. On 06/22 she was brought to [facility] with acute onset malaise chills and vomiting and 2 days of diarrhea. She was disoriented at the time of admission and lactate was elevated. CT imaging showed splenic infarcts and possible endocarditis. 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 She was started on Zosyn and metronidazole. Blood cultures revealed MRSA with growth in 4 out of 4 bottles. Zosyn was discontinued and therapy with daptomycin was initiated. She had a significant increase in creatinine from 1.7-3.3. Daptomycin was switched to vancomycin. A DAVEY performed on 06/25 revealed no vegetations however infected ICD was suspected with further possible ICD removal recommended by ID. She was transferred to [facility] [place] further management on 06/26. EP, cardiology and ID were consulted. During the hospital stay it was felt that removing her ICD was too risky and her cultures ended up clearing. It was decided the best plan of care would be to continue IV vancomycin for 6 weeks. She was discharged on 07/03 to [facility]. Daughter reports that she was not out of bed much at the hospital stay and she does have some issues with swallowing and possible aspiration. Just prior to arrival she had a rapid worsening of respiratory distress requiring BiPAP. Full sepsis resuscitation was avoided with history of cardiomyopathy and concern for overloading her. Aspiration pneumonia was suspected. Elevated troponin was seen and thought secondary to demand mismatch ischemia with no clear evidence of ACS on EKG and patient was denying chest pain. Hx of pleural effusions Will monitor with repeat imaging after treatment. Lasix stopped as noted above She got Lasix 40 mg IV yesterday and another dose of 40 mg IV this morning . Malnutrition chroinc, stable. On remeron, continue Hypothyroidism chronic, stable. Continue levothyroxine GERD chronic, stable. Continue home ppi Memory loss/Dementia chronic, some increased disorientation as she is oriented only to person. Possibly some worsened confusion in the setting of known h/o dementia. Continue donepezil per home regimen. CODE STATUS: Full code Diet: easy to chew DVT prophylaxis: warfarin with therapeutic INR. Dispo: cont PCU Discussed with the daughter in detail Condition remains stable likely be discharged tomorrow to [facility] Not yet ready to be discharged Prognosis remains poor Admission and Anticipated Discharge Date Admission Date: July 06, 2023 Subjective 07/09/2023 The patient was seen and examined in telemetry unit in presence of the daughter She remains weak and lethargic and has been requiring 2 L to maintain saturation Minimal shortness of breath at rest Complains to have some stomach upset 07/10/2023 The patient was seen and examined in telemetry unit She has been feeling better today but still remains extremely weak and lethargic Mild shortness of breath at rest and has been requiring 6 L to maintain saturation Not yet ready to be transferred to [facility] 07/11/2023 The patient was seen and examined in telemetry unit She has been worse compared with yesterday Complains more weakness and shortness of breath even at rest No fever and or chills Review of Systems Review of Systems: All systems reviewed and are unremarkable except as noted below Physical Exam Physical Exam: Sitting on a chair with minimal respiratory distress Constitutional: + ill appearing and + thin Eyes: PERRL, conjunctivae normal, anicteric sclerae ENMT: external ear and nose normal, oropharynx normal Neck: trachea midline, no thyromegaly Respiratory: + respiratory distress (Minimal distress at rest) Auscultation: + diminished lung sounds and + crackles (Bibasilar crackles) Cardiovascular: Rate/Rhythm: regular rate and regular rhythm; not tachycardic Heart Sounds: normal S1, normal S2 and + murmur Extremities: no edema Gastrointestinal (Abdomen): Inspection/Auscultation: normal bowel sounds; abdomen not distended Percussion/Palpation: abdomen soft; abdomen nontender Musculoskeletal: No acute arthritis involving any joint Neurologic: Alert and awake. Very weak and lethargic Lymphatic: no cervical or axillary lymphadenopathy Results & Data Results & Data Vital Signs (Past 12 Hours) Vital Signs Temp Pulse Pulse Resp BP BP Pulse Ox 07/11/23 10:39 36.6 C 78 20 152/92 H 90 07/11/23 08:00 07/11/23 08:00 07/11/23 07:00 75 07/11/23 07:18 36.3 C L 78 15 170/80 H 90 07/11/23 04:13 36.3 C L 71 22 153/73 H 93 07/11/23 02:20 69 24 148/69 H 93 Pulse Ox O2 Del Method O2 Del Method O2 Flow Rate O2 Flow Rate 07/11/23 10:39 Nasal Cannula 4 07/11/23 08:00 Nasal Cannula 4 07/11/23 08:00 93 Nasal Cannula 4 07/11/23 07:00 07/11/23 07:18 Nasal Cannula 4 07/11/23 04:13 Nasal Cannula 4 07/11/23 02:20 Nasal Cannula 5 Laboratory Results Short CBC 07/11/23 Range/Units 06:49 WBC 13.50 H (4.8-10.8) K/ul Hgb 9.7 L (12.0-16.0) g/dl Hct 30.0 L (37.0-47.0) % Plt Count 345 (130-400) K/uL BMP 07/11/23 06:49 Sodium 144 Potassium 3.2 L Chloride 112 H Carbon Dioxide 17 L BUN 38 H Creatinine 2.07 H Glucose 128 H Calcium 8.5 L Medications Administered Current Inpatient Medications Albuterol (Albuterol Hfa 8 Gm Inhaler) 2 puffs INH Q6H PRN PRN Reason: SOB/Wheezing Stop: 08/05/23 14:59 Amiodarone HCl (Amiodarone 200 Mg Tab) 200 mg PO DAILY [facility] Stop: 08/06/23 08:59 Last Admin: 07/11/23 08:55 Dose: 200 mg Diltiazem HCl (Diltiazem Hcl 120 Mg Capcr) 120 mg PO DAILY [facility]UEL Stop: 08/06/23 08:59 Last Admin: 07/11/23 08:56 Dose: 120 mg Docusate Sodium (Docusate Sodium 100 Mg Cap) 100 mg PO BID [facility] Stop: 08/05/23 20:59 Last Admin: 07/11/23 08:55 Dose: 100 mg Donepezil HCl (Donepezil Hcl 5 Mg Tab) 5 mg PO QPM [facility] Stop: 08/05/23 20:59 Last Admin: 07/10/23 20:14 Dose: 5 mg Hydrocortisone (Hydrocortisone 2.5% Cr 30 Gm Tube) 1 appln EXT BID PRN PRN Reason: RECTAL IRRITATION Stop: 08/05/23 14:17 Ceftriaxone Sodium 1,000 mg/ (Dextrose) 50 mls @ 100 mls/hr IV Q24H [facility]; Protocol Stop: 07/14/23 10:59 Last Infusion: 07/10/23 20:40 Dose: Infused Metronidazole (Flagyl) 500 mg in 100 mls @ 100 mls/hr IV Q8H [facility]; Protocol Stop: 07/14/23 10:59 Last Infusion: 07/11/23 10:00 Dose: Infused Vancomycin HCl 600 mg/ Sodium (Chloride) 262 mls @ 200 mls/hr IV Q24H [facility]; Protocol Stop: 07/25/23 20:59 Levothyroxine Sodium (Levothyroxine Sodium 25 Mcg Tablet) 25 mcg PO DAILYBB [facility] Stop: 08/06/23 06:29 Last Admin: 07/11/23 05:15 Dose: 25 mcg Metoprolol Succinate (Metoprolol Succ 25mg Ext Rel Tab) 25 mg PO DAILY [facility] Stop: 08/06/23 08:59 Last Admin: 07/11/23 08:55 Dose: 25 mg Mirtazapine (Mirtazapine Tab 15 Mg Tab) 7.5 mg PO HS [facility] Stop: 08/05/23 20:59 Last Admin: 07/10/23 20:14 Dose: 7.5 mg Miscellaneous Information (Vancomycin Consult Active) 1 each N/A UD PRN PRN Reason: Consult Stop: 08/05/23 12:01 Olanzapine (Olanzapine 10 Mg/2.1 Ml Sdv) 2.5 mg IM Q4H PRN PRN Reason: Anxiety/Agitation Stop: 08/06/23 01:55 Ondansetron HCl (Ondansetron 4 Mg Od Tab) 4 mg PO Q4 PRN PRN Reason: Nausea And Vomiting Stop: 08/05/23 14:17 Pantoprazole Sodium (Pantoprazole 40 Mg Tab) 40 mg PO DAILY [facility] Stop: 08/06/23 08:59 Last Admin: 07/11/23 08:55 Dose: 40 mg Vitamin D (Cholecalciferol 1,000 Units 25 Mcg Tab) 1,000 units PO QAM [facility] Stop: 08/06/23 08:59 Last Admin: 07/11/23 08:56 Dose: 1,000 units (2) Aspiration pneumonia of right lung Aspiration pneumonia type: unspecified Lung location: unspecified part of lung Qualified Code(s): J69.0 - Pneumonitis due to inhalation of food and vomit
[2023-07-11] MEDS: cefTRIAXone SODIUM 1,000 MG in DEXTROSE 5% AD-VAN 50 ML IV SCH (20:45)
[2023-07-11] MEDS: DONEPEZIL HCL 5 MG TAB PO SCH (21:00)
[2023-07-11] MEDS: MIRTAZAPINE TAB 15 MG TAB PO SCH (21:00)
[2023-07-11] MEDS: VANCOMYCIN HCL IV SCH (21:06)
[2023-07-11] MEDS: SODIUM CHLORIDE 0.9% IV SCH (21:06)
[2023-07-11] MEDS ORDERED: FUROSEMIDE INJ 20 MG/2 ML VIAL IV ONE (22:00)
[2023-07-11] MEDS ORDERED: LORazepam 2 MG/1 ML VIAL IV STA (23:19)
[2023-07-12] MEDS: metroNIDAZOLE 500 MG/100 ML BAG IV SCH ×3 (02:45→19:14)
[2023-07-12] MEDS ORDERED: MoRPHine SULFATE 2 MG/ML CARP IV STA (06:23)
[2023-07-12] MEDS: LEVOTHYROXINE SODIUM 25 MCG TABLET PO SCH (06:29)
[2023-07-12 07:37] LABS: Basophils # (auto) 0.03 K/uL (0-0.2); Basophils % (auto) 0.2 %; Eosinophils # (auto) 0.03 K/uL (0-0.50); Eosinophils % (auto) 0.2 %; Hematocrit (blood only) 29.6 % (37.0-47.0); Hemoglobin 9.6 g/dl (12.0-16.0); Immature Granulocytes % (auto) 0.7 %; Lymphocytes # (auto) 0.51 K/uL (1.2-3.4); Lymphocytes % (auto) 3.5 %; Mean Corpuscular Hemoglobin 29.6 pg (25.0-34.0); Mean Corpuscular Hgb Conc 32.4 g/dL (32.0-36.0); Mean Corpuscular Volume 91.4 fL (80.0-100.0); Monocytes # (auto) 0.91 K/uL (0.11-0.59); Monocytes % (auto) 6.3 %; Neutrophils # (auto) 12.95 K/uL (1.40-6.50); Neutrophils % (auto) 89.1 %; Nucleated RBC # (auto) 0.02 K/uL (0-0.12); Nucleated RBC % (auto) 0.1 %; Platelet Count 336 K/uL (130-400); RDW Coefficient of Variation 18.1 % (11.5-14.5); RDW Standard Deviation 58.7 fL (36.4-46.3); Red Blood Count 3.24 M/uL (4.20-5.40); White Blood Count 14.53 K/ul (4.8-10.8)
[2023-07-12 07:52] LABS: BUN Creatinine Ratio 18.9 (10-20); Calcium 8.4 mg/dl (8.6-10.3); Creatinine Clr Calc Pharmacy 15.4 ml/min; Est GFR (African American) 23.3 ml/min; Est GFR (Non-African American) 20.1 ml/min; Potassium 2.8 mmol/L (3.5-5.1)
[2023-07-12 07:55] LABS: HCO3 ABG 18 mmol/L (19-24); Oxygen Saturation ABG 92.1 % (90-95); PCO2 ABG 32 mmHg (35-46); PO2 ABG 67 mmHg (80-95); pH ABG 7.35 (7.35-7.45)
[2023-07-12 07:57] LABS: Allen Test Pos (Pos)
[2023-07-12 08:08] LABS: Prothrombin Time 63.2 Seconds (9.0-12.0)
[2023-07-12 08:14] LABS: INR 6.5 (0.9-1.1)
--- NOTE | 2023-07-12 08:53 | XRay Report ---
XR chest 1V portable HISTORY: 87 years-old Female Increased SOB acute shortness of breath COMPARISON: 07/11/2023 TECHNIQUE: AP view of the chest FINDINGS: Cardiac silhouette is enlarged. Mitral annular calcifications. Left subclavian pacer/AICD. Right IJ c entral venous catheter is unchanged. Pulmonary vascular congestion with mixed interstitial and alveol ar opacities. Layering pleural effusions. Degenerative changes of the shoulders and spine. Chronic le ft rib fractures. IMPRESSION: 1. Cardiomegaly with unchanged pulmonary edema. 2. Stable layering pleural effusions with bibasilar consolidation. ACT 112: Negative or not required by law. The above report was generated using voice recognition software. It may contain grammatical, syntax o r spelling errors. Electronically signed by: Paul Cuenca M.D. 07/12/2023 8:51 AM
[2023-07-12] MEDS: POTASSIUM CHLORIDE / WTR 10 MEQ/100 ML PLCT IV SCH ×2 (09:02→10:19)
[2023-07-12] MEDS: AMIODARONE 200 MG TAB PO SCH (09:03)
[2023-07-12] MEDS: METOPROLOL SUCC 25MG EXT REL TAB PO SCH (09:03)
[2023-07-12] MEDS: dilTIAZem HCL 120 MG CAPCR PO SCH (09:03)
[2023-07-12] MEDS: CHOLECALCIFEROL 1,000 UNITS 25 MCG TAB PO SCH (09:03)
[2023-07-12] MEDS: DOCUSATE SODIUM 100 MG CAP PO SCH ×2 (09:03→20:29)
[2023-07-12] MEDS: PANTOprazole 40 MG TAB PO SCH (09:03)
[2023-07-12] MEDS ORDERED: FUROSEMIDE 40 MG/4 ML VIAL IV ONE (09:15)
[2023-07-12] MEDS ORDERED: POTASSIUM CHLORIDE / WTR 10 MEQ/100 ML PLCT IV SCH (11:00)
--- NOTE | 2023-07-12 11:27 | Critical Care Consultation ---
Date of Consultation July 12, 2023 Assessment & Plan (1) Acute hypoxemic respiratory failure: Reason Critically Ill: 87-year-old female with acute hypoxic respiratory failure PLAN: Neuro: Encephalopathy: Metabolic -Reported concerns for baseline dementia in addition to current encephalopathy -Aricept 5 mg nightly -Remeron 7.5 mg nightly Resp: Acute hypoxic respiratory failure: Concern for multifocal pneumonia -Strongly suspect this is secondary to volume overload, patient currently 6.6 kg above admission weight -Worsening hypoxia on ABG -Antibiotics were expanded to include Rocephin and Flagyl instead of vancomycin and Zosyn combination given renal insufficiency -Cannot exclude aspiration pneumonitis Pleural effusions CV: Severe aortic stenosis Asymmetric hypertrophic cardiomyopathy History paroxysmal atrial fibrillation: On systemic anticoagulation with warfarin -Amiodarone 200 mg daily -Diltiazem CD1 120 mg daily -Metoprolol succinate 25 mg daily Probable EF preserved heart failure -15 pound weight gain -Aggressive diuresis with potassium supplementation Fluids/Renal: Acute kidney injury Hypokalemia -Patient receiving nebulizers and aggressive diuretics, she is still produci ng urine I think it is reasonable and necessary to supplement her hypokalemia Metabolic acidosis with nongap metabolic acidosis (likely hyperchloremic) and respiratory compensation -Avoiding chloride containing solutions when able ID: History 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 -Currently on ceftriaxone and Flagyl and vancomycin -Discontinue Flagyl Klebsiella pneumonia pansensitive UTI GI/Nutrition: Supratherapeutic INR -Check DIC labs, include type and screen Transaminitis -Mild elevation in AST on prior laboratory values recheck today Protein calorie malnutrition Heme: Anemia -Likely secondary to chronic disease/chronic underlying infection baseline appears to be 10 since June 23 DVT prophylaxis: Chemical prophylaxis contraindicated in setting of supratherapeutic INR Endocrine: ICU hyperglycemia protocol Hypothyroidism -25 mg by mouth daily Vascular access: Single-lumen CVL for antibiotic administration, peripheral IVs Code Status: Full code Disposition: ICU Had extensive discussion with daughter at bedside. Do believe the patient is entering an end-stage terminal condition without meaningful recovery as so far meaningful recovery is defined by the patient's desires of wanting to live independently. There is severe protein calorie malnutrition, patient requires prolonged antibiotic administration for presumptive persistent MRSA infection relating to retained medical devices. These medical devices could not be removed secondary to risk to the patient's life. Patient continues to third space fluid, pleural effusions present with worsening renal function. Patient is essentially reaching maximum ability to compensate for underlying metabolic acidosis from a respiratory standpoint and would require invasive mechanical ventilation as her metabolic demands are exceeding her ability to compensate. Ultimately I feel the patient has and will continue to have high metabolic demands placed upon her and she is baseline frail. Chance of survivability from a cardiac arrest is extremely slim and chance of return to baseline functional status that would allow her to live independently is also accordingly very slim. Would be in agreement with limiting aggressive medical interventions as well as focus on comfort as immediate medical concerns will not treat underlying chronic medical issues and I believe the patient will continue to decompensate from a functional standpoint. I have personally spent 85 minutes of critical care time in the direct management of this patient. This is a life/limb threatening event. This includes time spent evaluating patient, direct bedside care, chart review, placing orders, interpretation of diagnostic studies, discussion with co nsultants, patient, and/or family members regarding treatment decisions, as well as other required patient management activities. This time is exclusive of all separately billable procedures, and teaching time and separate from and in addition to any other critical care service time. update 1210: Son-in-law at bedside, updated of situation, attempting to have additional family members arrived at bedside. Not proceeding with invasive mechanical ventilation, attempting to bridge with high flow nasal cannula to allow time for family to arrive at bedside and also allow patient to be as communicative and interactive as possible (2) Aspiration pneumonia of right lung: (3) AWA (acute kidney injury): (4) Encephalopathy: (5) HOCM (hypertrophic obstructive cardiomyopathy): (6) PAF (paroxysmal atrial fibrillation): (7) CAD (coronary artery disease): (8) Aortic stenosis, severe: (9) Pulmonary hypertension: History of Present Illness Reason for Consultation: Acute hypoxic respiratory failure Attending Physician: Rosie Ann MD History of Present Illness Patient is an 87-year-old female with past medical history of hypertrophic obstructive cardiomyopathy, paroxysmal atrial fibrillation, coronary artery di sease, tricuspid regurgitation, pacemaker dependent with lead placement in 2011, with battery change in April 2020, who lives independently in a two-story home until June 22 at which point the patient was brought in for altered mental status possible stroke alert. The course of her hospitalization over approximately 1 week in [facility] the patient was found to have a urinary tract infection with gram-negative bacilli as well as sepsis and acute kidney injury secondary to MRSA bacteremia. Patient was ultimately transferred to [facility] (after undergoing a transesophageal echocardiogram here: No vegetation noted on leads, severe aortic stenosis versus pseudo aortic stenosis secondary to severe left ventricular hypertrophy and small left ventricular cavity volume) for evaluation of possible/probable pacemaker infection secondary to persistent MRSA bacteremia. Per report and scanned medical records it was felt it would be too difficult to remove her wires which have been present for greater than 10 years and there is recommended 6 weeks of vancomycin therapy. It is noted in prior records that the patient has significant memory impairment and is a poor historian. There is concerns that the patient may be intermittently aspirating. Ultimately the patient was transferred to [facility] for possible rehab as the patient is unable to complete her ADLs at the present time. At rehab she developed a episode of significant respiratory distress and was transferred to [facility] for further evaluation and management. While at [facility] the patient has been on antibiotics and undergone speech and swallow evaluations. Generally the patient has not improved. Overnight the patient continued to deteriorate with increasing oxygen requirements. This morning she was found to be somnolent tachypneic and there is concern for impending respiratory failure. She has been given IV diuretics and was transferred to the ICU for further evaluation and management. I discussed the case with the patient's daughter at bedside. There is no reported designated medical power of mergers and acquisitions attorney decision makers would be the patient's 2 daughters 1 at bedside the other lives in [place]. Allergies Allergy/AdvReac Type Severity Reaction Status Date / Time bee venom protein (honey bee) Allergy Intermediate Hives Verified 06/22/23 17:33 alendronate sodium AdvReac Intermediate Muscle Pain Verified 06/22/23 17:33 [From Fosamax] simvastatin AdvReac Intermediate Muscle Pain Verified 06/22/23 17:33 Home Medications Medication Instructions Recorded Confirmed Type amiodarone 200 mg tablet 200 mg PO DAILY 05/02/20 07/07/23 History levothyroxine 25 mcg capsule 25 mcg PO DAILYBB 05/02/20 07/07/23 History cholecalciferol (vitamin D3) 25 1,000 unit PO QAM 06/22/23 07/06/23 History mcg (1,000 unit) capsule (Vitamin D3) diltiazem HCl 120 mg capsule,24 120 mg PO DAILY 06/22/23 07/07/23 History hr,extended release donepezil 5 mg tablet 5 mg PO QPM 06/22/23 07/07/23 History hydrocortisone 2.5 % topical cream 1 applic topical BID PRN RECTAL 06/22/23 07/06/23 History IRRITATION metoprolol succinate 25 mg 25 mg PO DAILY 06/22/23 07/07/23 History tablet,extended release 24 hr mirtazapine 15 mg tablet 7.5 mg PO HS 06/22/23 07/06/23 History warfarin 2 mg tablet See Rx Instructions .Route .COMPLEX 06/22/23 07/06/23 History albuterol 90 mcg/actuation aerosol 90 mcg inhalation QID 07/06/23 07/06/23 History inhaler docusate sodium 100 mg capsule 100 mg PO BID 07/06/23 07/06/23 History ondansetron 4 mg disintegrating 4 mg translingual Q4 PRN Nausea 07/06/23 07/06/23 History tablet And Vomiting pantoprazole 40 mg tablet,delayed 40 mg PO DAILY 07/06/23 07/06/23 History release vancomycin 750 mg/250 mL in 0.9 % 750 mg IV DAILY 07/06/23 07/07/23 History sodium chloride intravenous solution Patient History Medical History CAD (coronary artery disease) Cardiomyopathy Heart disease HOCM (hypertrophic obstructive cardiomyopathy) HTN (hypertension) Hyperlipidemia Implantable cardioverter-defibrillator (ICD) at end of battery life pt for ICD generator change; risks discussed; consents signed PAF (paroxysmal atrial fibrillation) Tricuspid regurgitation Family History Mother No problems noted. Social History Smoking Status: Never smoker Second Hand Exposure: No; Do You Dip or Chew Tobacco: No; Tobacco Cessation Education Requested by Patient: No Hx Alcohol Use: No Hx Substance Use: No Preferred Language: Chilean Communication Ability: Effective Dry Wall Installer Required: No Beliefs That Will Affect Care: None Current Living Situation: Alone Other Information That Helps Us Care for You: No Feels Safe at Home: Yes Safety Concerns: Feels Safe At This Time Assistive Devices: None Physical Exam Physical Exam: General: Cachectic and frail in appearance, concern for protein calorie malnutrition, BMI 19.5 and calculator I do believe the patient is retaining fluids so I would estimate her BMI would classify her as underweight Review of vital records reveals a weight of 45 kg on last admission as well as initial presentation Neuro: Somnolent. Arousable with tactile stimulation. Skin: Warm, dry, Head: Atraumatic Ears, nose, mouth and throat: airway patent Cardiovascular: Normal peripheral perfusion Respiratory: Tachypnea, coarse sounds bilaterally Gastrointestinal: Non distended Musculoskeletal: No deformity Results & Data Results & Data Vital Signs (Past 12 Hours) Vital Signs Temp Pulse Pulse Resp BP BP Pulse Ox 07/12/23 10:42 07/12/23 08:00 84 34 H 89 L 07/12/23 08:00 07/12/23 07:00 82 07/12/23 07:14 28 H 89 L 07/12/23 07:00 36.7 C 82 30 H 156/72 H 85 L 07/12/23 03:05 36.7 C 78 32 H 149/71 H 95 Pulse Ox O2 Del Method O2 Del Method O2 Flow Rate O2 Flow Rate 07/12/23 10:42 Non-rebreather 15 07/12/23 08:00 Oxymask 10 07/12/23 08:00 89 L Oxymask 10 07/12/23 07:00 07/12/23 07:14 Oxymask 10 07/12/23 07:00 Nasal Cannula 6 07/12/23 03:05 Nasal Cannula 6 Critical Care Results & Data Vital Signs (Past 12 Hours) Vital Signs Temp Pulse Pulse Resp BP BP Pulse Ox 07/12/23 10:42 07/12/23 08:00 84 34 H 89 L 07/12/23 08:00 07/12/23 07:00 82 07/12/23 07:14 28 H 89 L 07/12/23 07:00 36.7 C 82 30 H 156/72 H 85 L 07/12/23 03:05 36.7 C 78 32 H 149/71 H 95 Pulse Ox O2 Del Method O2 Del Method O2 Flow Rate O2 Flow Rate 07/12/23 10:42 Non-rebreather 15 07/12/23 08:00 Oxymask 10 07/12/23 08:00 89 L Oxymask 10 07/12/23 07:00 07/12/23 07:14 Oxymask 10 07/12/23 07:00 Nasal Cannula 6 07/12/23 03:05 Nasal Cannula 6 Lab & Micro Results (Past 24 Hours) RBC 3.24 M/uL (4.20-5.40) L 07/12/23 WBC 14.53 K/ul (4.8-10.8) H 07/12/23 Hgb 9.6 g/dl (12.0-16.0) L 07/12/23 Hct 29.6 % (37.0-47.0) L 07/12/23 MCV 91.4 fL (80.0-100.0) 07/12/23 MCH 29.6 pg (25.0-34.0) 07/12/23 MCHC 32.4 g/dL (32.0-36.0) 07/12/23 RDW Standard Deviation 58.7 fL (36.4-46.3) H 07/12/23 RDW Coefficient of Variation 18.1 % (11.5-14.5) H 07/12/23 Plt Count 336 K/uL (130-400) 07/12/23 MPV 10.0 fL (9.4-12.4) 07/12/23 Nucleated Red Blood Cells % (auto) 0.1 % 07/12 Nucleated RBC Absolute Count (auto) 0.02 K/uL (0-0.12) 06/24 08/16 Neutrophils (%) (Auto) 89.1 % 07/12/23 Lymphocytes (%) (Auto) 3.5 % 07/12/23 Monocytes # (Auto) 0.91 K/uL (0.11-0.59) H 07/12/23 Eosinophils # (Auto) 0.03 K/uL (0-0.50) 07/12/23 Immature Granulocyte % (Auto) 0.7 % 07/12/23 Neutrophils # (Auto) 12.95 K/uL (1.40-6.50) H 07/12/23 Lymphocytes # (Auto) 0.51 K/uL (1.2-3.4) L 07/12/23 Monocytes # (Auto) 0.91 K/uL (0.11-0.59) H 07/12/23 Eosinophils # (Auto) 0.03 K/uL (0-0.50) 07/12/23 Basophils # (Auto) 0.03 K/uL (0-0.2) 07/12/23 Immature Granulocyte # (Auto) 0.10 K/uL (0.01-0.20) 3 Na 144 mmol/L (136-145) 07/12/23 K 2.8 mmol/L (3.5-5.1) L 07/12/23 Cl 111 mmol/L (98-107) H 07/12/23 CO2 19 mmol/L (21-32) L 07/12/23 Anion Gap 14 (3-11) H 07/12/23 BUN 41 mg/dl (6-23) H 07/12/23 Creatinine 2.17 mg/dl (0.6-1.2) H 07/12/23 Estimated GFR ( Amer) 23.3 ml/min 07/12/23 Estimated GFR (Non-Af Amer) 20.1 ml/min 07/12/23 BUN/Creatinine Ratio 18.9 (10-20) 07/12/23 Glu 133 mg/dl (70-99(Fasting)) H 07/12/23 Ca 8.4 mg/dl (8.6-10.3) L 07/12/23 Calcium Level 8.4 mg/dl (8.6-10.3) L 07/12/23 06:52 Prothromb Time International Ratio 6.5 (0.9-1.1) H* 07/12/23 0 6:51 Arterial Blood pH 7.35 (7.35-7.45) 07/12/23 07:46 Arterial Blood Partial Pressure CO2 32 mmHg (35-46) L 07/12/23 07:46 Arterial Blood Partial Pressure O2 67 mmHg (80-95) L 07/12/23 0 7:46 Arterial Blood HCO3 18 mmol/L (19-24) L 07/12/23 07:46 Arterial Blood Base Excess -7.0 mEq/L (-9-1.8) 07/12/23 07:46 Arterial Blood Oxygen Saturation 92.1 % (90-95) 07/12/23 07:46 Blood Gas Oxygen Given 10L 07/12/23 07:46 Ruben Test NA 07/12/23 11:19 Microbiology 07/06/23 11:45 Aerobic Blood Culture - Final Blood No growth in Aerobic bottle after 5 days. Anaerobic Blood Culture - Final No growth in Anaerobic bottle after 5 days. 07/06/23 11:27 Aerobic Blood Culture - Final Blood No growth in Aerobic bottle after 5 days. Anaerobic Blood Culture - Final No growth in Anaerobic bottle after 5 days. Diagnostic Findings (Past 24 Hours) Chest X-Ray 07/12/23 08:19 XR chest 1V portable HISTORY: 87 years-old Female Increased SOB acute shortness of breath COMPARISON: 07/11/2023 TECHNIQUE: AP view of the chest FINDINGS: Cardiac silhouette is enlarged. Mitral annular calcifications. Left subclavian pacer/AICD. Right IJ central venous catheter is unchanged. Pulmonary vascular congestion with mixed interstitial and alveolar opacities. Layering pleural effusions. Degenerative changes of the shoulders and spine. Chronic left rib fractures. IMPRESSION: 1. Cardiomegaly with unchanged pulmonary edema. 2. Stable layering pleural effusions with bibasilar consolidation. ACT 112: Negative or not required by law. The above report was generated using voice recognition software. It may contain grammatical, syntax or spelling errors. Electronically signed by: Paul Cuenca M.D. 07/12/2023 8:51 AM I & O Totals 24 Hours 07/11/23 07/12/23 07/13/23 06:59 06:59 06:59 Intake Total 515 / 515 832 / 832 100 / 100 Output Total 720 / 720 1051 / 1051 Balance -205 / -205 -219 / -219 100 / 100 Cumulative 07/06/23 11:02 thru 07/12/23 10:02 Intake Total 7497.334 Output Total 5172 Balance 2325.334 RT Ventilator Mngmt (Last Documented) Ventilator Ordered Settings Respiratory Rate 34 07/12/23 08:00 Fraction of Inspired Oxygen 40 07/07/23 04:02 Ventilator - PT Measurements Respiratory Rate 34 Coding Level of Care Code 65320 CRITICAL CARE 1ST 30-74M Additional Critical Care Time Additional 30min Critical Care Time: Yes - 46438 Diagnoses Acute hypoxemic respiratory failure J96.01 Aspiration pneumonia of right lung J69.0 Aspiration pneumonia type: unspecified Lung location: unspecified part of lung AWA (acute kidney injury) N17.9 Encephalopathy G93.40 HOCM (hypertrophic obstructive cardiomyopathy) I42.1 PAF (paroxysmal atrial fibrillation) I48.0 CAD (coronary artery disease) I25.10 Aortic stenosis, severe I35.0 Pulmonary hypertension I27.20 Additional Codes Critical Care Time - Additional 30min Critical Care Time: Yes - [id number] ([id number]) (2) Aspiration pneumonia of right lung Aspiration pneumonia type: unspecified Lung location: unspecified part of lung Qualified Code(s): J69.0 - Pneumonitis due to inhalation of food and vomit
[2023-07-12 11:32] LABS: iSTAT Art Bld Gas pCO2 Correct 32 mmHg (35-46); iSTAT Art Bld Gas pH Corrected 7.345 (7.35-7.45); iSTAT Arterial Blood Gas HCO3 18 meg/L (19-24); iSTAT Arterial Blood Gas pCO2 32 mmHg (35-46); iSTAT Arterial Blood Gas pH 7.35 (7.35-7.45); iSTAT Arterial Blood Gas pO2 58 mmHg (80-95); iSTAT Arterial Blood Gas pO2 C 58; iSTAT Carbon Dioxide 18 mmol/L (24-31); iSTAT FiO2 10 %; iSTAT Hematocrit 31 % (37-47); iSTAT Hemoglobin 10.5 g/dl (12.0-16.0); iSTAT Potassium 3.5 mmol/L (3.3-5.0); iSTAT Site R Brachial; iSTAT Sodium 145 mmol/L (135-144)
[2023-07-12] MEDS ORDERED: BUMETANIDE 4 MG in SYRINGE 0 ML IV ONE (11:45)
--- NOTE | 2023-07-12 12:08 | Hospitalist Progress Note ---
Date of Service July 12, 2023 Assessment & Plan (1) Acute hypoxemic respiratory failure: Plan: Acute respiratory failure 2/2 multifocal pneumonia Chest x-ray and CT evidence of multifocal pneumonia on admission WBC chronically elevated, procalcitonin negative, biofire completely negative, BCx negative to date Per ED provider, pt received Lasix 40mg [employer] with no improvement in symptoms. Subsequently received 500mls of NSS in the ED. One dose of zosyn given in the ED and this was continued Given known renal complications associated wtih combination Vanc/Zosyn together, Zosyn was changed to Rocephin/flagyl Respiratory support was de-escalated from BiPAP down to oxygen Speech performed video swallow study today that revealed no evidence of aspiration. Cont abx and oxygen support Ambulate early and often! Incentive spirometer at bedside Clinically remains weak and lethargic with minimal improvement PT is performed and recommended rehab Clinically a little better,But has been requiring 6 L to maintain saturation Chest x-ray is showing cardiomegaly with mild pulmonary edema with slight improvement compared with prior. Small bilateral pleural effusions with underlying airspace opacities could be secondary to pneumonia Received another dose of Lasix 40 mg IV this morning Condition got worse last night with increasing shortness of breath and weakness with less responsiveness Received 20 mg of Lasix last evening and chest x-ray this morning did show multifocal pneumonia with evidence of congestion and received 40 mg Lasix IV as well The case discussed with the medical imaging director and later on transferred to ICU for continued care Hx of bacteremia/ICD currently in place Last admission from 06/22 to 06/27 with noted bacteremia. ID recommended removal of ICD and she was transferred to [facility] to have procedure done. However, the procedure was deemed to risky but fortunately pt also had negative blood cultures while there. The decision was made to keep the ICD in. Repeat Blood Cx x2 are negative to date. Continue IV Vancomycin until 08/08/2023 per [facility] infectious disease. Pharmacy consulted to manage. We will continue antibiotic for pneumonia for a total of 7 to 10 days and then continue with vancomycin as planned (2) Aspiration pneumonia of right lung: Plan: No evidence of aspiration as per video swallow May have had an aspiration episode last night and the condition got worse Remains hypoxic even on 15 L of oxygen She was transferred to ICU for continued care (3) Elevated troponin: Plan: Demand ischemia Elevated HS troponin, no evidence of ACS. Remains chest pain-free. Repeat echo 07/06 reveals severe aortic calcification, additional valvulopathy, grade II diastolic dysfunction, pulmonary hypertension and EF 55-60%. No further inpatient work-up at this time (4) AWA (acute kidney injury): Plan: Acute kidney injury in setting of CKD Baseline creatinine is around 1.5 and today she is 2.03. She initially received 500cc NSS, and then later albumin with Lasix 60mg IV around 0430 followed by her "home" dose of Lasix 40mg PO this morning. Per home med list she takes this daily, however, on the med rec from recent hospital discharge Lasix 20mg PO daily had been discontinued. Her home med list was updated to reflect this. There is no evidence of fluid overload at this point and she is breathing better today Repeat BMP this morning with rising creatinine. Lasix stopped. Repeat BMP in am. Creatinine has been remains stable at around 2.2 Creatinine went up to 2.17 as of this morning that is 07/12/2023 Hypokalemia Replaced accordingly and will be monitored (5) Cardiomyopathy: (6) HTN (hypertension): (7) PAF (paroxysmal atrial fibrillation): Plan: PAF, NSVT, HOCM with dual chamber AICD in place Follows with Cardiology chronic, stable. Continue amiodarone, metoprolol, diltiazem and Coumadin for a fib anticoagulation INR elevated, cont holding warfarin INR remains elevated likely secondary to use of antibiotic-no evidence of bleeding Heart rate remains stable at 84 Plan Patient is an 87-year-old female with a significant history of paroxysmal atrial fibrillation on warfarin, nonsustained V. tach, hypertrophic cardiomyopathy status post ICD placement, CKD stage III and dementia. On 06/22 she was brought to [facility] with acute onset malaise chills and vomiting and 2 days of diarrhea. She was disoriented at the time of admission and lactate was elevated. CT imaging showed splenic infarcts and possible endocarditis. 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 She was started on Zosyn and metronidazole. Blood cultures revealed MRSA with growth in 4 out of 4 bottles. Zosyn was discontinued and therapy with daptomycin was initiated. She had a significant increase in creatinine from 1.7-3.3. Daptomycin was switched to vancomycin. A DAVEY performed on 06/25 revealed no vegetations however infected ICD was suspected with further possible ICD removal recommended by ID. She was transferred to [facility] for further management on 06/26. EP, cardiology and ID were consulted. During the hospital stay it was felt that removing her ICD was too risky and her cultures ended up clearing. It was decided the best plan of care would be to continue IV vancomycin for 6 weeks. She was discharged on 07/03 to [facility]. Daughter reports that she was not out of bed much at the hospital stay and she does have some issues with swallowing and possible aspiration. Just prior to arrival she had a rapid worsening of respiratory distress requiring BiPAP. Full sepsis resuscitation was avoided with history of cardiomyopathy and concern for overloading her. Aspiration pneumonia was suspe cted. Elevated troponin was seen and thought secondary to demand mismatch ischemia with no clear evidence of ACS on EKG and patient was denying chest pain. Hx of pleural effusions Will monitor with repeat imaging after treatment. Lasix stopped as noted above She got Lasix 40 mg IV yesterday and another dose of 40 mg IV this morning 07/11/2023. No evidence of significant effusion but does have CHF Malnutrition chroinc, stable. On remeron, continue Hypothyroidism chronic, stable. Continue levothyroxine GERD chronic, stable. Continue home ppi Memory loss/Dementia chronic, some increased disorientation as she is oriented only to person. Possibly some worsened confusion in the setting of known h/o dementia. Continue donepezil per home regimen. CODE STATUS: Full code Diet: easy to chew DVT prophylaxis: warfarin with therapeutic INR. Dispo: cont PCU Discussed with the daughter in detail Condition remains stable likely be discharged tomorrow to [facility] Not yet ready to be discharged Prognosis remains poor She was transferred to ICU this morning for continued care and the prognosis remains poor Admission and Anticipated Discharge Date Admission Date: July 06, 2023 Subjective 07/09/2023 The patient was seen and examined in telemetry unit in presence of the daughter She remains weak and lethargic and has been requiring 2 L to maintain saturation Minimal shortness of breath at rest Complains to have some stomach upset 07/10/2023 The patient was seen and examined in telemetry unit She has been feeling better today but still remains extremely weak and lethargic Mild shortness of breath at rest and has been requiring 6 L to maintain saturation Not yet ready to be transferred to [facility] 07/11/2023 The patient was seen and examined in telemetry unit She has been worse compared with yesterday Complains more weakness and shortness of breath even at rest No fever and or chills 07/12/2023 The patient was seen and examined in telemetry unit and later on in ICU She was noted to be very short of breath and less responsive since last night and early this morning Remains extremely weak with tachypnea but no fever and or chills Noted to be hypoxic on 10 L of oxygen through oxygen mask Discussed with the ICU doc and later on the patient was transferred to ICU for continued management Review of Systems Review of Systems: Unobtainable due to cognitive status Physical Exam Physical Exam: Lying in bed with acute distress due to tachypnea Constitutional: + ill appearing and + thin Eyes: PERRL, conjunctivae normal, anicteric sclerae ENMT: external ear and nose normal, oropharynx normal Neck: trachea midline, no thyromegaly Respiratory: + respiratory distress (Minimal distress at rest) Auscultation: + diminished lung sounds and + crackles (Bibasilar crackles) Cardiovascular: Rate/Rhythm: regular rate and regular rhythm; not tachycardic Heart Sounds: normal S1, normal S2 and + murmur Extremities: no edema Gastrointestinal (Abdomen): Inspection/Auscultation: normal bowel sounds; abdomen not distended Percussion/Palpation: abdomen soft; abdomen nontender Musculoskeletal: No acute arthritis involving any joint Neurologic: Alert and awake. Minimally communicative and very drowsy. Extremely weak and lethargic Lymphatic: no cervical or axillary lymphadenopathy Results & Data Results & Data Vital Signs (Past 12 Hours) Vital Signs Temp Pulse Pulse Resp BP BP Pulse Ox 07/12/23 10:42 07/12/23 08:00 84 34 H 89 L 07/12/23 08:00 07/12/23 07:00 82 07/12/23 07:14 28 H 89 L 07/12/23 07:00 36.7 C 82 30 H 156/72 H 85 L 07/12/23 03:05 36.7 C 78 32 H 149/71 H 95 Pulse Ox O2 Del Method O2 Del Method O2 Flow Rate O2 Flow Rate 07/12/23 10:42 Non-rebreather 15 07/12/23 08:00 Oxymask 10 07/12/23 08:00 89 L Oxymask 10 07/12/23 07:00 07/12/23 07:14 Oxymask 10 07/12/23 07:00 Nasal Cannula 6 07/12/23 03:05 Nasal Cannula 6 Laboratory Results Short CBC 07/12/23 Range/Units 06:52 WBC 14.53 H (4.8-10.8) K/ul Hgb 9.6 L (12.0-16.0) g/dl Hct 29.6 L (37.0-47.0) % Plt Count 336 (130-400) K/uL BMP 07/12/23 06:52 Sodium 144 Potassium 2.8 L Chloride 111 H Carbon Dioxide 19 L BUN 41 H Creatinine 2.17 H Glucose 133 H Calcium 8.4 L Medications Administered Current Inpatient Medications Albuterol (Albuterol Hfa 8 Gm Inhaler) 2 puffs INH Q6H PRN PRN Reason: SOB/Wheezing Stop: 08/05/23 14:59 Amiodarone HCl (Amiodarone 200 Mg Tab) 200 mg PO DAILY [facility] Stop: 08/06/23 08:59 Last Admin: 07/12/23 09:03 Dose: Not Given Diltiazem HCl (Diltiazem Hcl 120 Mg Capcr) 120 mg PO DAILY [facility] Stop: 08/06/23 08:59 Last Admin: 07/12/23 09:03 Dose: Not Given Docusate Sodium (Docusate Sodium 100 Mg Cap) 100 mg PO BID [facility] Stop: 08/05/23 20:59 Last Admin: 07/12/23 09:03 Dose: Not Given Donepezil HCl (Donepezil Hcl 5 Mg Tab) 5 mg PO QPM [facility] Stop: 08/05/23 20:59 Last Admin: 07/11/23 21:00 Dose: 5 mg Hydrocortisone (Hydrocortisone 2.5% Cr 30 Gm Tube) 1 appln EXT BID PRN PRN Reason: RECTAL IRRITATION Stop: 08/05/23 14:17 Ceftriaxone Sodium 1,000 mg/ (Dextrose) 50 mls @ 100 mls/hr IV Q24H [facility]; Protocol Stop: 07/14/23 10:59 Last Infusion: 07/11/23 21:15 Dose: Infused Metronidazole (Flagyl) 500 mg in 100 mls @ 100 mls/hr IV Q8H [facility]; Protocol Stop: 07/14/23 10:59 Last Admin: 07/12/23 10:19 Dose: 100 mls/hr Vancomycin HCl 600 mg/ Sodium (Chloride) 262 mls @ 200 mls/hr IV Q24H [facility]; Protocol Stop: 07/25/23 20:59 Last Infusion: 07/11/23 22:25 Dose: Infused Potassium Acetate () 20 meq in 110 mls @ 55 mls/hr IV Q2H [facility] Stop: 07/12/23 15:59 Levothyroxine Sodium (Levothyroxine Sodium 25 Mcg Tablet) 25 mcg PO DAILYBB [facility] Stop: 08/06/23 06:29 Last Admin: 07/12/23 06:29 Dose: Not Given Metoprolol Succinate (Metoprolol Succ 25mg Ext Rel Tab) 25 mg PO DAILY [facility] Stop: 08/06/23 08:59 Last Admin: 07/12/23 09:03 Dose: Not Given Mirtazapine (Mirtazapine Tab 15 Mg Tab) 7.5 mg PO HS [facility] Stop: 08/05/23 20:59 Last Admin: 07/11/23 21:00 Dose: 7.5 mg Miscellaneous Information (Vancomycin Consult Active) 1 each N/A UD PRN PRN Reason: Consult Stop: 08/05/23 12:01 Ondansetron HCl (Ondansetron 4 Mg Od Tab) 4 mg PO Q4 PRN PRN Reason: Nausea And Vomiting Stop: 08/05/23 14:17 Pantoprazole Sodium (Pantoprazole 40 Mg Tab) 40 mg PO DAILY [facility] Stop: 08/06/23 08:59 Last Admin: 07/12/23 09:03 Dose: Not Given Vitamin D (Cholecalciferol 1,000 Units 25 Mcg Tab) 1,000 units PO QAM [facility] Stop: 08/06/23 08:59 Last Admin: 07/12/23 09:03 Dose: Not Given (2) Aspiration pneumonia of right lung Aspiration pneumonia type: unspecified Lung location: unspecified part of lung Qualified Code(s): J69.0 - Pneumonitis due to inhalation of food and vomit
[2023-07-12] MEDS: POTASSIUM ACETATE/NSS 20 MEQ/110 ML BAG IV SCH ×2 (12:16→14:28)
[2023-07-12 12:43] LABS: Reticulocyte % 3.4 % (0.5-2.0); Reticulocytes # 0.11 10^6/uL (0.02-0.10)
[2023-07-12 13:01] LABS: Albumin Level 3.5 gm/dl (3.4-5.0); Bilirubin Direct 0.4 mg/dl (0-0.2); Bilirubin,Total 0.9 mg/dl (0.2-1.0); Total Protein 6.4 gm/dl (6.0-8.3)
[2023-07-12 13:30] LABS: Fibrinogen 412 mg/dl (184-400); Partial Thromboplastin Ratio 1.7
[2023-07-12 13:33] LABS: Partial Thromboplastin Time 48.2 Seconds (21.0-31.0)
[2023-07-12] MEDS ORDERED: MoRPHine SULFATE 2 MG/ML CARP ONE (17:31)
[2023-07-12] MEDS: cefTRIAXone SODIUM 1,000 MG in DEXTROSE 5% AD-VAN 50 ML IV SCH (20:28)
[2023-07-12] MEDS: MIRTAZAPINE TAB 15 MG TAB PO SCH (20:29)
[2023-07-12] MEDS: DONEPEZIL HCL 5 MG TAB PO SCH (20:29)
[2023-07-12] MEDS: VANCOMYCIN HCL IV SCH (21:02)
[2023-07-12] MEDS: SODIUM CHLORIDE 0.9% IV SCH (21:02)
[2023-07-12] MEDS: MoRPHine SULFATE 2 MG/ML CARP IV PRN ×2 (21:02→22:58)
[2023-07-12] MEDS ORDERED: PANTOprazole 40 MG in SYRINGE 0 ML IV ONE (21:30)
[2023-07-13] MEDS: LEVOTHYROXINE SODIUM 25 MCG TABLET PO SCH (02:12)
[2023-07-13] MEDS: metroNIDAZOLE 500 MG/100 ML BAG IV SCH ×2 (02:25→14:02)
[2023-07-13] MEDS: MoRPHine SULFATE 2 MG/ML CARP IV PRN ×3 (03:26→08:59)
[2023-07-13 05:21] LABS: Creatinine Clr Calc Pharmacy 14.5 ml/min; Est GFR (African American) 21.6 ml/min; Est GFR (Non-African American) 18.7 ml/min
[2023-07-13 05:43] LABS: Prothrombin Time 62.6 Seconds (9.0-12.0)
[2023-07-13 05:55] LABS: INR 6.4 (0.9-1.1)
--- NOTE | 2023-07-13 07:14 | Critical Care Progress Note ---
Date of Service July 13, 2023 Assessment & Plan (1) Acute hypoxemic respiratory failure: Plan: Reason Critically Ill: 87-year-old female with acute hypoxic respiratory failure PLAN: Neuro: Encephalopathy: Metabolic -Reported concerns for baseline dementia in addition to current encephalopathy -Aricept 5 mg nightly -Remeron 7.5 mg nightly Resp: Acute hypoxic respiratory failure: Concern for multifocal pneumonia -Strongly suspect this is secondary to volume overload, patient currently 6.6 kg above admission weight -Oxygen saturation adequate on high flow nasal cannula -Morphine as needed for air hunger -Discontinuing active antibiotic treatment, I suspect pulmonary edema largely over bacterial pneumonia Pleural effusions CV: Severe aortic stenosis Asymmetric hypertrophic cardiomyopathy History paroxysmal atrial fibrillation: On systemic anticoagulation with warfarin -Amiodarone 200 mg daily -Diltiazem CD1 120 mg daily -Metoprolol succinate 25 mg daily Probable EF preserved heart failure -15 pound weight gain -Aggressive diuresis with potassium supplementation Fluids/Renal: Acute kidney injury: Worsening Hypokalemia -Patient receiving nebulizers and aggressive diuretics, she is still producing urine I think it is reasonable and necessary to supplement her hypokalemia Metabolic acidosis with nongap metabolic acidosis (likely hyperchloremic) and respiratory compensation -Avoiding chloride containing solutions when able ID: History 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 -Currently on ceftriaxone and Flagyl and vancomycin -Discontinue Flagyl Klebsiella pneumonia pansensitive UTI GI/Nutrition: Supratherapeutic INR: Mild improvement today Transaminitis: Improved Protein calorie malnutrition Heme: Anemia -Likely secondary to chronic disease/chronic underlying infection baseline appears to be 10 since June 23 DVT prophylaxis: Chemical prophylaxis contraindicated in setting of supratherapeutic INR Endocrine: ICU hyperglycemia protocol Hypothyroidism -25 mg by mouth daily Vascular access: Single-lumen CVL for antibiotic administration, peripheral IVs Code Status: DO NOT RESUSCITATE in event of cardiac arrest Disposition: ICU Additional family members at bedside had extensive discussion transitioning to comfort measures and discontinuing life-sustaining treatments. Oxygen as needed for comfort (2) Aspiration pneumonia of right lung: (3) AWA (acute kidney injury): (4) Encephalopathy: (5) HOCM (hypertrophic obstructive cardiomyopathy): (6) PAF (paroxysmal atrial fibrillation): (7) CAD (coronary artery disease): (8) Aortic stenosis, severe: (9) Pulmonary hypertension: Admission and Anticipated Discharge Date Admission Date: July 06, 2023 Supervising Physician Co-Signing Physician Notes I have personally spent 40 minutes of critical care time in the direct management of this patient. This is a life/limb threatening event. This includes time spent evaluating patient, direct bedside care, chart review, placing orders, interpretation of diagnostic studies, discussion with consultants, patient, and/or family members regarding treatment decisions, as well as other required patient management activities. This time is exclusive of all separately billable procedures, and teaching time and separate from and in addition to any other critical care service time. Subjective Patient somnolent, responsive to tactile stimulation from family. Discussed with both daughters and additional family present at bedside transitioning to comfort discontinuing lab draws and continuing with morphine for pain and air hunger. Physical Exam Physical Exam: General: Mild distress, mild discomfort Neuro: Somnolent. Arousable with tactile stimulation. Skin: Cool, dry, Head: Atraumatic Ears, nose, mouth and throat: airway patent Respiratory: Tachypnea, coarse sounds bilaterally Gastrointestinal: Non distended Musculoskeletal: No deformity Results & Data Results & Data Vital Signs (Past 12 Hours) Vital Signs Temp Pulse Pulse Resp BP Pulse Ox O2 Del Method 07/13/23 05:00 78 24 97 07/13/23 05:00 140/65 07/13/23 04:00 36.7 C 77 24 99 07/13/23 04:00 139/66 07/13/23 03:00 75 27 H 99 07/13/23 03:00 139/62 07/13/23 02:30 77 24 98 07/13/23 02:00 83 32 H 95 07/13/23 02:00 145/72 H 07/13/23 01:30 78 25 H 97 07/13/23 01:00 78 25 H 96 07/13/23 01:00 142/68 H 07/13/23 00:30 80 27 H 97 07/13/23 00:00 79 29 H 97 07/13/23 00:00 141/67 H High Flow Nasal Cannula 07/12/23 23:00 82 34 H 98 07/12/23 23:00 36.7 C 140/74 07/12/23 22:00 82 41 H 96 07/12/23 22:00 156/77 H 07/12/23 23:41 80 07/12/23 22:59 82 35 H 98 High Flow Nasal Cannula 07/12/23 21:20 82 33 H 97 07/12/23 21:10 82 38 H 98 07/12/23 21:00 82 27 H 99 07/12/23 21:00 36.7 C 156/74 H 07/12/23 20:50 82 40 H 98 07/12/23 20:40 81 27 H 99 07/12/23 20:30 80 36 H 100 High Flow Nasal Cannula 07/12/23 20:20 79 37 H 99 07/12/23 20:10 78 32 H 100 07/12/23 20:00 79 35 H 99 07/12/23 20:00 152/81 H 07/12/23 19:50 80 23 95 07/12/23 19:40 80 37 H 100 07/12/23 19:30 81 32 H 100 07/12/23 19:20 80 35 H 100 07/12/23 21:25 High Flow Nasal Cannula 07/12/23 20:51 81 36 H 96 High Flow Nasal Cannula O2 Flow Rate FiO2 07/13/23 05:00 07/13/23 05:00 07/13/23 04:00 07/13/23 04:00 07/13/23 03:00 07/13/23 03:00 07/13/23 02:30 07/13/23 02:00 07/13/23 02:00 07/13/23 01:30 07/13/23 01:00 07/13/23 01:00 07/13/23 00:30 07/13/23 00:00 07/13/23 00:00 25 60 07/12/23 23:00 07/12/23 23:00 07/12/23 22:00 07/12/23 22:00 07/12/23 23:41 07/12/23 22:59 25 60 07/12/23 21:20 07/12/23 21:10 07/12/23 21:00 07/12/23 21:00 07/12/23 20:50 07/12/23 20:40 07/12/23 20:30 25 60 07/12/23 20:20 07/12/23 20:10 07/12/23 20:00 07/12/23 20:00 07/12/23 19:50 07/12/23 19:40 07/12/23 19:30 07/12/23 19:20 07/12/23 21:25 25 60 07/12/23 20:51 25 60 Critical Care Results & Data Vital Signs (Past 12 Hours) Vital Signs Temp Pulse Pulse Resp BP Pulse Ox O2 Del Method 07/13/23 12:00 80 21 134/66 97 07/13/23 11:00 79 18 150/93 H 95 High Flow Nasal Cannula 07/13/23 10:00 82 34 H 154/71 H 99 07/13/23 09:00 83 27 H 145/70 H 99 07/13/23 12:21 36.6 C 07/13/23 08:20 85 28 H 100 High Flow Nasal Cannula 07/13/23 08:00 84 24 98 High Flow Nasal Cannula 07/13/23 08:00 147/78 H 07/13/23 07:00 81 32 H 97 07/13/23 07:00 149/73 H 07/13/23 08:05 High Flow Nasal Cannula 07/13/23 08:04 36.6 C 07/13/23 05:00 78 24 97 07/13/23 05:00 140/65 07/13/23 04:00 36.7 C 77 24 99 07/13/23 04:00 139/66 07/13/23 03:00 75 27 H 99 07/13/23 03:00 139/62 07/13/23 02:30 77 24 98 07/13/23 02:00 83 32 H 95 07/13/23 02:00 145/72 H 07/13/23 01:30 78 25 H 97 07/13/23 01:00 78 25 H 96 07/13/23 01:00 142/68 H O2 Flow Rate FiO2 07/13/23 12:00 07/13/23 11:00 25 0.6 07/13/23 10:00 07/13/23 09:00 07/13/23 12:21 07/13/23 08:20 25 60 07/13/23 08:00 25 0.6 07/13/23 08:00 07/13/23 07:00 07/13/23 07:00 07/13/23 08:05 25 0.6 07/13/23 08:04 07/13/23 05:00 07/13/23 05:00 07/13/23 04:00 07/13/23 04:00 07/13/23 03:00 07/13/23 03:00 07/13/23 02:30 07/13/23 02:00 07/13/23 02:00 07/13/23 01:30 07/13/23 01:00 07/13/23 01:00 Lab & Micro Results (Past 24 Hours) RBC 3.34 M/uL (4.20-5.40) L 07/13/23 WBC 13.39 K/ul (4.8-10.8) H 07/13/23 Hgb 9.8 g/dl (12.0-16.0) L 07/13/23 Hct 31.0 % (37.0-47.0) L 07/13/23 MCV 92.8 fL (80.0-100.0) 07/13/23 MCH 29.3 pg (25.0-34.0) 07/13/23 MCHC 31.6 g/dL (32.0-36.0) L 07/13/23 RDW Standard Deviation 62.2 fL (36.4-46.3) H 07/13/23 RDW Coefficient of Variation 18.6 % (11.5-14.5) H 07/13/23 Plt Count 317 K/uL (130-400) 07/13/23 MPV 9.8 fL (9.4-12.4) 07/13/23 Nucleated Red Blood Cells % (auto) 0.1 % 07/13 Nucleated RBC Absolute Count (auto) 0.02 K/uL (0-0.12) 06/25 0 Neutrophils (%) (Auto) 89.2 % 07/13/23 Lymphocytes (%) (Auto) 3.1 % 07/13/23 Monocytes # (Auto) 0.80 K/uL (0.11-0.59) H 07/13/23 Eosinophils # (Auto) 0.08 K/uL (0-0.50) 07/13/23 Immature Granulocyte % (Auto) 0.9 % 07/13/23 Neutrophils # (Auto) 11.94 K/uL (1.40-6.50) H 07/13/23 Lymphocytes # (Auto) 0.42 K/uL (1.2-3.4) L 07/13/23 Monocytes # (Auto) 0.80 K/uL (0.11-0.59) H 07/13/23 Eosinophils # (Auto) 0.08 K/uL (0-0.50) 07/13/23 Basophils # (Auto) 0.03 K/uL (0-0.2) 07/13/23 Immature Granulocyte # (Auto) 0.12 K/uL (0.01-0.20) 3 Na 147 mmol/L (136-145) H 07/13/23 K 3.2 mmol/L (3.5-5.1) L 07/13/23 Cl 113 mmol/L (98-107) H 07/13/23 CO2 22 mmol/L (21-32) 07/13/23 Anion Gap 12 (3-11) H 07/13/23 BUN 46 mg/dl (6-23) H 07/13/23 Creatinine 2.43 mg/dl (0.6-1.2) H 07/13/23 Estimated GFR ( Amer) 20.3 ml/min 07/13/23 Estimated GFR (Non-Af Amer) 17.5 ml/min 07/13/23 BUN/Creatinine Ratio 18.9 (10-20) 07/13/23 Glu 122 mg/dl (70-99(Fasting)) H 07/13/23 Ca 8.3 mg/dl (8.6-10.3) L 07/13/23 Mg 1.8 mg/dl (1.7-2.4) 07/13/23 10:05 Calcium Level 8.3 mg/dl (8.6-10.3) L 07/13/23 10:05 Prothromb Time International Ratio 6.4 (0.9-1.1) H* 07/13/23 0 4:33 Venous Blood pH 7.31 (7.36-7.41) L 07/13/23 10:05 Venous Blood Partial Pressure CO2 44 mmHg (38-50) 07/13/23 10:0 5 Venous Blood Partial Pressure O2 46 mmHg 07/13/23 10:05 Venous Blood HCO3 22 mmol/L 07/13/23 10:05 Venous Blood Base Excess -3.9 mEq/L 07/13/23 10:05 Venous Blood Oxygen Saturation 69.1 % 07/13/23 10:05 I & O Totals 24 Hours 07/12/23 07/13/23 07/14/23 06:59 06:59 06:59 Intake Total 832 / 832 1032 / 1032 Output Total 1051 / 1051 1625 / 1625 Balance -219 / -219 -593 / -593 Cumulative 07/06/23 11:02 thru 07/13/23 05:00 Intake Total 8429.334 Output Total 6797 Balance 1632.334 RT Ventilator Mngmt (Last Documented) Ventilator Ordered Settings Respiratory Rate 21 07/13/23 12:00 Fraction of Inspired Oxygen 0.6 07/13/23 11:00 Ventilator - PT Measurements Respiratory Rate 21 Coding Level of Care Code 29679 CRITICAL CARE 1ST 30-74M Diagnoses Acute hypoxemic respiratory failure J96.01 Aspiration pneumonia of right lung J69.0 Aspiration pneumonia type: unspecified Lung location: unspecified part of lung AWA (acute kidney injury) N17.9 Encephalopathy G93.40 HOCM (hypertrophic obstructive cardiomyopathy) I42.1 PAF (paroxysmal atrial fibrillation) I48.0 CAD (coronary artery disease) I25.10 Aortic stenosis, severe I35.0 Pulmonary hypertension I27.20 (2) Aspiration pneumonia of right lung Aspiration pneumonia type: unspecified Lung location: unspecified part of lung Qualified Code(s): J69.0 - Pneumonitis due to inhalation of food and vomit
[2023-07-13] MEDS: DOCUSATE SODIUM 100 MG CAP PO SCH (08:23)
[2023-07-13] MEDS: dilTIAZem HCL 120 MG CAPCR PO SCH (08:23)
[2023-07-13] MEDS: AMIODARONE 200 MG TAB PO SCH (08:23)
[2023-07-13] MEDS: METOPROLOL SUCC 25MG EXT REL TAB PO SCH (08:23)
[2023-07-13] MEDS: CHOLECALCIFEROL 1,000 UNITS 25 MCG TAB PO SCH (08:23)
[2023-07-13 10:14] LABS: Base Excess VBG -3.9 mEq/L; HCO3 VBG 22 mmol/L; Oxygen Saturation VBG 69.1 %; PCO2 VBG 44 mmHg (38-50); PO2 VBG 46 mmHg; pH VBG 7.31 (7.36-7.41)
[2023-07-13 10:23] LABS: Basophils # (auto) 0.03 K/uL (0-0.2); Basophils % (auto) 0.2 %; Eosinophils # (auto) 0.08 K/uL (0-0.50); Eosinophils % (auto) 0.6 %; Hemoglobin 9.8 g/dl (12.0-16.0); Immature Granulocytes # (auto) 0.12 K/uL (0.01-0.20); Immature Granulocytes % (auto) 0.9 %; Lymphocytes # (auto) 0.42 K/uL (1.2-3.4); Lymphocytes % (auto) 3.1 %; Mean Corpuscular Hemoglobin 29.3 pg (25.0-34.0); Mean Corpuscular Hgb Conc 31.6 g/dL (32.0-36.0); Mean Corpuscular Volume 92.8 fL (80.0-100.0); Mean Platelet Volume 9.8 fL (9.4-12.4); Neutrophils # (auto) 11.94 K/uL (1.40-6.50); Neutrophils % (auto) 89.2 %; Nucleated RBC # (auto) 0.02 K/uL (0-0.12); Nucleated RBC % (auto) 0.1 %; Platelet Count 317 K/uL (130-400); RDW Coefficient of Variation 18.6 % (11.5-14.5); RDW Standard Deviation 62.2 fL (36.4-46.3); Red Blood Count 3.34 M/uL (4.20-5.40); White Blood Count 13.39 K/ul (4.8-10.8)
[2023-07-13 10:40] LABS: BUN Creatinine Ratio 18.9 (10-20); Calcium 8.3 mg/dl (8.6-10.3); Creatinine Clr Calc Pharmacy 13.9 ml/min; Est GFR (African American) 20.3 ml/min; Est GFR (Non-African American) 17.5 ml/min; Magnesium 1.8 mg/dl (1.7-2.4); Potassium 3.2 mmol/L (3.5-5.1)
[2023-07-13] MEDS ORDERED: PANTOprazole 40 MG in SYRINGE 0 ML IV SCH (11:00)
[2023-07-13] MEDS: HYDROmorphone INJ 0.5 MG/0.5 ML SYR IV PRN ×3 (11:36→20:31)
--- NOTE | 2023-07-13 12:11 | Hospitalist Progress Note ---
Date of Service July 13, 2023 Assessment & Plan (1) Acute hypoxemic respiratory failure: Plan: Acute respiratory failure 2/2 multifocal pneumonia Chest x-ray and CT evidence of multifocal pneumonia on admission WBC chronically elevated, procalcitonin negative, biofire completely negative, BCx negative to date Per ED provider, pt received Lasix 40mg [employer] with no improvement in symptoms. Subsequently received 500mls of NSS in the ED. One dose of zosyn given in the ED and this was continued Given known renal complications associated wtih combination Vanc/Zosyn together, Zosyn was changed to Rocephin/flagyl Respiratory support was de-escalated from BiPAP down to oxygen Speech performed video swallow study today that revealed no evidence of aspiration. Cont abx and oxygen support Ambulate early and often! Incentive spirometer at bedside Clinically remains weak and lethargic with minimal improvement PT is performed and recommended rehab Clinically a little better,But has been requiring 6 L to maintain saturation Chest x-ray is showing cardiomegaly with mild pulmonary edema with slight improvement compared with prior. Small bilateral pleural effusions with underlying airspace opacities could be secondary to pneumonia Received another dose of Lasix 40 mg IV this morning Condition got worse last night with increasing shortness of breath and weakness with less responsiveness Received 20 mg of Lasix last evening and chest x-ray this morning did show multifocal pneumonia with evidence of congestion and received 40 mg Lasix IV as well Remains critical in ICU with worsening of her symptoms Requiring 60% FiO2 at a rate of 25 L/min to maintain saturation Appreciate input implementation manager input and recommendation-likely going towards comfort care Hx of bacteremia/ICD currently in place Last admission from 06/22 to 06/27 with noted bacteremia. ID recommended removal of ICD and she was transferred to [facility] to have procedure done. However, the procedure was deemed to risky but fortunately pt also had negative blood cultures while there. The decision was made to keep the ICD in. Repeat Blood Cx x2 are negative to date. Continue IV Vancomycin until 08/08/2023 per [facility] infectious disease. Pharmacy consulted to manage. We will continue antibiotic for pneumonia for a total of 7 to 10 days and then continue with vancomycin as planned We will continue current management (2) Aspiration pneumonia of right lung: Plan: No evidence of aspiration as per video swallow May have had an aspiration episode last night and the condition got worse Remains hypoxic even on 15 L of oxygen She was transferred to ICU for continued care (3) Elevated troponin: Plan: Demand ischemia Elevated HS troponin, no evidence of ACS. Remains chest pain-free. Repeat echo 07/06 reveals severe aortic calcification, additional valvulopathy, grade II diastolic dysfunction, pulmonary hypertension and EF 55-60%. No further inpatient work-up at this time (4) AWA (acute kidney injury): Plan: Acute kidney injury in setting of CKD Baseline creatinine is around 1.5 and today she is 2.03. She initially received 500cc NSS, and then later albumin with Lasix 60mg IV around 0430 followed by her "home" dose of Lasix 40mg PO this morning. Per home med list she takes this daily, however, on the med rec from recent hospital discharge Lasix 20mg PO daily had been discontinued. Her home med list was updated to reflect this. There is no evidence of fluid overload at this point and she is breathing better today Repeat BMP this morning with rising creatinine. Lasix stopped. Repeat BMP in am. Creatinine has been remains stable at around 2.2 Creatinine went up to 2.17 as of this morning that is 07/12/2023 Creatinine is minimally elevated at 2.43 Hypokalemia Replaced accordingly and will be monitored Potassium 3.2 and was replaced (5) Cardiomyopathy: (6) HTN (hypertension): (7) PAF (paroxysmal atrial fibrillation): Plan: PAF, NSVT, HOCM with dual chamber AICD in place Follows with Cardiology chronic, stable. Continue amiodarone, metoprolol, diltiazem and Coumadin for a fib anticoagulation INR elevated, cont holding warfarin INR remains elevated likely secondary to use of antibiotic-no evidence of bleeding Heart rate remains stable at 84 INR is 6.4 we will monitor Plan Patient is an 87-year-old female with a significant history of paroxysmal atrial fibrillation on warfarin, nonsustained V. tach, hypertrophic cardiomyopathy status post ICD placement, CKD stage III and dementia. On 06/22 she was brought to [facility] with acute onset malaise chills and vomiting and 2 days of diarrhea. She was disoriented at the time of admission and lactate was elevated. CT imaging showed splenic infarcts and possible endocarditis. 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 She was started on Zosyn and metronidazole. Blood cultures revealed MRSA with growth in 4 out of 4 bottles. Zosyn was discontinued and therapy with daptomycin was initiated. She had a significant increase in creatinine from 1.7-3.3. Daptomycin was switched to vancomycin. A DAVEY performed on 06/25 revealed no vegetations however infected ICD was suspected with further possible ICD removal recommended by ID. She was transferred to [facility] for further management on 06/26. EP, cardiology and ID were consulted. During the hospital stay it was felt that removing her ICD was too risky and her cultures ended up clearing. It was decided the best plan of care would be to continue IV vancomycin for 6 weeks. She was discharged on 07/03 to [facility]. Daughter reports that she was not out of bed much at the hospital stay and she does have some issues with swallowing and possible aspiration. Just prior to arrival she had a rapid worsening of respiratory distress requiring BiPAP. Full sepsis resuscitation was avoided with history of cardiomyopathy and concern for overloading her. Aspiration pneumonia was suspected. Elevated troponin was seen and thought secondary to demand mismatch ischemia with no clear evidence of ACS on EKG and patient was denying chest pain. Hx of pleural effusions Will monitor with repeat imaging after treatment. Lasix stopped as noted above She got Lasix 40 mg IV yesterday and another dose of 40 mg IV this morning 07/11/2023. No evidence of significant effusion but does have CHF Malnutrition chroinc, stable. On remeron, continue Hypothyroidism chronic, stable. Continue levothyroxine GERD chronic, stable. Continue home ppi Memory loss/Dementia chronic, some increased disorientation as she is oriented only to person. Possibly some worsened confusion in the setting of known h/o dementia. Continue donepezil per home regimen. CODE STATUS: Full code Diet: easy to chew DVT prophylaxis: warfarin with therapeutic INR. Dispo: cont PCU Discussed with the daughter in detail Condition remains stable likely be discharged tomorrow to [facility] Not yet ready to be discharged Prognosis remains poor She was transferred to ICU this morning for continued care and the prognosis remains poor Admission and Anticipated Discharge Date Admission Date: July 06, 2023 Subjective 07/09/2023 The patient was seen and examined in telemetry unit in presence of the daughter She remains weak and lethargic and has been requiring 2 L to maintain saturation Minimal shortness of breath at rest Complains to have some stomach upset 07/10/2023 The patient was seen and examined in telemetry unit She has been feeling better today but still remains extremely weak and lethargic Mild shortness of breath at rest and has been requiring 6 L to maintain saturation Not yet ready to be transferred to [facility] 07/11/2023 The patient was seen and examined in telemetry unit She has been worse compared with yesterday Complains more weakness and shortness of breath even at rest No fever and or chills 07/12/2023 The patient was seen and examined in telemetry unit and later on in ICU She was noted to be very short of breath and less responsive since last night and early this morning Remains extremely weak with tachypnea but no fever and or chills Noted to be hypoxic on 10 L of oxygen through oxygen mask Discussed with the ICU doc and later on the patient was transferred to ICU for continued management 07/13/2023 The patient was seen and examined in the ICU Her condition is worse and requiring intravenous morphine frequently to keep her free from pain and agitation Remains short of breath at rest and requiring 60% FiO2 at a rate of 25 L/min Review of Systems Review of Systems: All systems reviewed and are unremarkable except as noted below Physical Exam Physical Exam: Lying in bed with acute distress due to tachypnea Constitutional: + ill appearing and + thin Eyes: PERRL, conjunctivae normal, anicteric sclerae ENMT: external ear and nose normal, oropharynx normal Neck: trachea midline, no thyromegaly Respiratory: + respiratory distress (Minimal distress at rest) Auscultation: + diminished lung sounds and + crackles (Bibasilar crackles) Cardiovascular: Rate/Rhythm: regular rate and regular rhythm; not tachycardic Heart Sounds: normal S1, normal S2 and + murmur Extremities: no edema Gastrointestinal (Abdomen): Inspection/Auscultation: normal bowel sounds; abdomen not distended Percussion/Palpation: abdomen soft; abdomen nontender Neurologic: Not responding to commands Lymphatic: no cervical or axillary lymphadenopathy Results & Data Results & Data Vital Signs (Past 12 Hours) Vital Signs Temp Pulse Pulse Resp BP Pulse Ox O2 Del Method 07/13/23 08:20 85 28 H 100 High Flow Nasal Cannula 07/13/23 08:00 84 24 98 High Flow Nasal Cannula 07/13/23 08:00 147/78 H 07/13/23 07:00 81 32 H 97 07/13/23 07:00 149/73 H 07/13/23 08:05 High Flow Nasal Cannula 07/13/23 08:04 36.6 C 07/13/23 05:00 78 24 97 07/13/23 05:00 140/65 07/13/23 04:00 36.7 C 77 24 99 07/13/23 04:00 139/66 07/13/23 03:00 75 27 H 99 07/13/23 03:00 139/62 07/13/23 02:30 77 24 98 07/13/23 02:00 83 32 H 95 07/13/23 02:00 145/72 H 07/13/23 01:30 78 25 H 97 07/13/23 01:00 78 25 H 96 07/13/23 01:00 142/68 H 07/13/23 00:30 80 27 H 97 O2 Flow Rate FiO2 07/13/23 08:20 25 60 07/13/23 08:00 25 0.6 07/13/23 08:00 07/13/23 07:00 07/13/23 07:00 07/13/23 08:05 25 0.6 07/13/23 08:04 07/13/23 05:00 07/13/23 05:00 07/13/23 04:00 07/13/23 04:00 07/13/23 03:00 07/13/23 03:00 07/13/23 02:30 07/13/23 02:00 07/13/23 02:00 07/13/23 01:30 07/13/23 01:00 07/13/23 01:00 07/13/23 00:30 Laboratory Results Short CBC 07/13/23 Range/Units 10:05 WBC 13.39 H (4.8-10.8) K/ul Hgb 9.8 L (12.0-16.0) g/dl Hct 31.0 L (37.0-47.0) % Plt Count 317 (130-400) K/uL BMP 07/13/23 07/13/23 04:34 10:05 Sodium 147 H Potassium 3.2 L Chloride 113 H Carbon Dioxide 22 BUN 46 H Creatinine 2.31 H 2.43 H Glucose 122 H Calcium 8.3 L Liver Function 07/12/23 Range/Units 11:52 Total Bilirubin 0.9 (0.2-1.0) mg/dl Direct Bilirubin 0.4 H (0-0.2) mg/dl AST 31 (13-39) U/L ALT 17 (7-52) U/L Alkaline Phosphatase 98 (34-104) U/L Albumin 3.5 (3.4-5.0) gm/dl Medications Administered Current Inpatient Medications Albuterol (Albuterol Hfa 8 Gm Inhaler) 2 puffs INH Q6H PRN PRN Reason: SOB/Wheezing Stop: 08/05/23 14:59 Amiodarone HCl (Amiodarone 200 Mg Tab) 200 mg PO DAILY [facility] Stop: 08/06/23 08:59 Last Admin: 07/13/23 08:23 Dose: Not Given Diltiazem HCl (Diltiazem Hcl 120 Mg Capcr) 120 mg PO DAILY [facility] Stop: 08/06/23 08:59 Last Admin: 07/13/23 08:23 Dose: Not Given Docusate Sodium (Docusate Sodium 100 Mg Cap) 100 mg PO BID [facility]UEL Stop: 08/05/23 20:59 Last Admin: 07/13/23 08:23 Dose: Not Given Donepezil HCl (Donepezil Hcl 5 Mg Tab) 5 mg PO QPM [facility] Stop: 08/05/23 20:59 Last Admin: 07/12/23 20:29 Dose: Not Given Hydrocortisone (Hydrocortisone 2.5% Cr 30 Gm Tube) 1 appln EXT BID PRN PRN Reason: RECTAL IRRITATION Stop: 08/05/23 14:17 Hydromorphone HCl (Hydromorphone Inj 0.5 Mg/0.5 Ml Syr) 0.25 mg IV Q2H PRN PRN Reason: Pain Stop: 07/27/23 10:10 Last Admin: 07/13/23 11:36 Dose: 0.25 mg Ceftriaxone Sodium 1,000 mg/ (Dextrose) 50 mls @ 100 mls/hr IV Q24H [facility]UEL; Protocol Stop: 07/14/23 10:59 Last Infusion: 07/12/23 20:58 Dose: Infused Vancomycin HCl 600 mg/ Sodium (Chloride) 262 mls @ 200 mls/hr IV Q24H MANUEL; Protocol Stop: 07/25/23 20:59 Last Infusion: 07/12/23 22:21 Dose: Infused Pantoprazole Sodium 40 mg/ (Syringe) 10 mls @ 5 mls/min IV DAILY@1100 [facility] Stop: 08/12/23 10:59 Last Admin: 07/13/23 11:26 Dose: 5 mls/min Levothyroxine Sodium (Levothyroxine Sodium 25 Mcg Tablet) 25 mcg PO DAILYBB [facility] Stop: 08/06/23 06:29 Last Admin: 07/13/23 02:12 Dose: Not Given Metoprolol Succinate (Metoprolol Succ 25mg Ext Rel Tab) 25 mg PO DAILY [facility] Stop: 08/06/23 08:59 Last Admin: 07/13/23 08:23 Dose: Not Given Mirtazapine (Mirtazapine Tab 15 Mg Tab) 7.5 mg PO HS [facility] Stop: 08/05/23 20:59 Last Admin: 07/12/23 20:29 Dose: Not Given Miscellaneous Information (Vancomycin Consult Active) 1 each N/A UD PRN PRN Reason: Consult Stop: 08/05/23 12:01 Ondansetron HCl (Ondansetron 4 Mg Od Tab) 4 mg PO Q4 PRN PRN Reason: Nausea And Vomiting Stop: 08/05/23 14:17 Vitamin D (Cholecalciferol 1,000 Units 25 Mcg Tab) 1,000 units PO QAM [facility] Stop: 08/06/23 08:59 Last Admin: 07/13/23 08:23 Dose: Not Given (2) Aspiration pneumonia of right lung Aspiration pneumonia type: unspecified Lung location: unspecified part of lung Qualified Code(s): J69.0 - Pneumonitis due to inhalation of food and vomit
--- NOTE | 2023-07-13 12:27 | Pharmacy Report ---
Pharmacy PK ABX Note - Date of Service July 13, 2023 - Assessment and Plan Assessment 87 year old F receiving vancomycin and ceftriaxone for treatment of MRSA bacteremia/infected ICD, UTI and possible pneumonia. * Receiving vancomycin 750mg IV q24h in the outpatient setting per [facility] (X 6 weeks of therapy). [facility] [place] [facility] confirmed via Epic and via phone call respectively. * Blood cultures x 2 (06/24/23): MRSA. Blood cultures x 2 (07/06/23): no growth at 24 hours. Urine culture (07/06/23): alexander-sensitive Klebsiella pneumoniae * Afebrile. Leukocytosis steady around 13-14k daily. SCr continues to worsen, up to 2.43 mg/dL today. * Vancomycin level this morning was 27.7 mcg/mL. Considering this was drawn only 8 hours after evening dose, expected it to be above goal. However, AUC/XIMENA on current regimen is expected to be above 600. Will hold any further doses today. Plan Vancomycin * Current regimen: 600 mg IV every 24 hours * Random level obtained 07/13/23 resulted as 27.7 mcg/mL. This is suprathera peutic with predicted AUC at steady state: 633 mg/L.hr * Holding any further vancomycin doses today given renal fxn continues to worsen. * Will check a random level tomorrow AM and adjust dose based on this level. Ceftriaxone * 1000 mg IV every 24 hours Pharmacy will continue to follow and will adjust dose/frequency as necessary. Thank you. Pharmacy has transitioned to AUC monitoring for vancomycin. AUC/XIMENA is the preferred PK/PD target and is associated with decreased risk of nephrotoxicity compared to traditional trough targets.
[2023-07-13] MEDS ORDERED: ONDANSETRON 4 MG OD TAB SL PRN (12:41)
[2023-07-13] MEDS ORDERED: LORazepam 0.5 MG TAB PO PRN (12:41)
[2023-07-13] MEDS ORDERED: ONDANSETRON INJ 2 MG/ML 2 ML VIAL IV PRN (12:41)
[2023-07-14] MEDS: HYDROmorphone INJ 0.5 MG/0.5 ML SYR IV PRN ×4 (04:41→20:43)
[2023-07-14] MEDS: LORazepam 2 MG/1 ML VIAL IV PRN (06:49)
--- NOTE | 2023-07-14 17:20 | Hospitalist Progress Note ---
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 Subsequently received 500mls of NSS in the ED. One dose of zosyn given in the ED and this was continued Given known renal complications associated wtih combination Vanc/Zosyn together, Zosyn was changed to Rocephin/flagyl Respiratory support was de-escalated from BiPAP down to oxygen Speech performed video swallow study today that revealed no evidence of aspiration. Cont abx and oxygen support Ambulate early and often! Incentive spirometer at bedside Clinically remains weak and lethargic with minimal improvement PT is performed and recommended rehab Clinically a little better,But has been requiring 6 L to maintain saturation Chest x-ray is showing cardiomegaly with mild pulmonary edema with slight improvement compared with prior. Small bilateral pleural effusions with underlying airspace opacities could be secondary to pneumonia Received another dose of Lasix 40 mg IV this morning Condition got worse last night with increasing shortness of breath and weakness with less responsiveness Received 20 mg of Lasix last evening and chest x-ray this morning did show multifocal pneumonia with evidence of congestion and received 40 mg Lasix IV as well Remains critical in ICU with worsening of her symptoms Requiring 60% FiO2 at a rate of 25 L/min to maintain saturation Appreciate input coal grader input and recommendation-likely going towards comfort care Hx of bacteremia/ICD currently in place Last admission from 06/22 to 06/27 with noted bacteremia. ID recommended removal of ICD and she was transferred to [facility] to have procedure done. However, the procedure was deemed to risky but fortunately pt also had negative blood cultures while there. The decision was made to keep the ICD in. Repeat Blood Cx x2 are negative to date. Continue IV Vancomycin until 08/08/2023 per [facility] infectious disease. Pharmacy consulted to manage. We will continue antibiotic for pneumonia for a total of 7 to 10 days and then continue with vancomycin as planned We will continue current management (2) Aspiration pneumonia of right lung: Plan: No evidence of aspiration as per video swallow May have had an aspiration episode last night and the condition got worse Remains hypoxic even on 15 L of oxygen She was transferred to ICU for continued care (3) Elevated troponin: Plan: Demand ischemia Elevated HS troponin, no evidence of ACS. Remains chest pain-free. Repeat echo 07/06 reveals severe aortic calcification, additional valvulopathy, grade II diastolic dysfunction, pulmonary hypertension and EF 55-60%. No further inpatient work-up at this time (4) AWA (acute kidney injury): Plan: Acute kidney injury in setting of CKD Baseline creatinine is around 1.5 and today she is 2.03. She initially received 500cc NSS, and then later albumin with Lasix 60mg IV around 0430 followed by her "home" dose of Lasix 40mg PO this morning. Per home med list she takes this daily, however, on the med rec from recent hospital discharge Lasix 20mg PO daily had been discontinued. Her home med list was updated to reflect this. There is no evidence of fluid overload at this point and she is breathing better today Repeat BMP this morning with rising creatinine. Lasix stopped. Repeat BMP in am. Creatinine has been remains stable at around 2.2 Creatinine went up to 2.17 as of this morning that is 07/12/2023 Creatinine is minimally elevated at 2.43 Hypokalemia Replaced accordingly and will be monitored Potassium 3.2 and was replaced (5) Cardiomyopathy: (6) HTN (hypertension): (7) PAF (paroxysmal atrial fibrillation): Plan: PAF, NSVT, HOCM with dual chamber AICD in place Follows with Cardiology chronic, stable. Continue amiodarone, metoprolol, diltiazem and Coumadin for a fib anticoagulation INR elevated, cont holding warfarin INR remains elevated likely secondary to use of antibiotic-no evidence of bleeding Heart rate remains stable at 84 INR is 6.4 we will monitor Plan Patient is an 87-year-old female with a significant history of paroxysmal atrial fibrillation on warfarin, nonsustained V. tach, hypertrophic cardiomyopathy status post ICD placement, CKD stage III and dementia. On 06/22 she was brought to [facility] with acute onset malaise chills and vomiting and 2 days of diarrhea. She was disoriented at the time of admission and lactate was elevated. CT imaging showed splenic infarcts and possible endocarditis. 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 She was started on Zosyn and metronidazole. Blood cultures revealed MRSA with growth in 4 out of 4 bottles. Zosyn was discontinued and therapy with daptomycin was initiated. She had a significant increase in creatinine from 1.7-3.3. Daptomycin was switched to vancomycin. A DAVEY performed on 06/25 revealed no vegetations however infected ICD was suspected with further possible ICD removal recommended by ID. She was transferred to [facility] for further management on 06/26. EP, cardiology and ID were consulted. During the hospital stay it was felt that removing her ICD was too risky and her cultures ended up clearing. It was decided the best plan of care would be to continue IV vancomycin for 6 weeks. She was discharged on 07/03 to [facility]. Daughter reports that she was not out of bed much at the hospital stay and she does have some issues with swallowing and possible aspiration. Just prior to arrival she had a rapid worsening of respiratory distress requiring BiPAP. Full sepsis resuscitation was avoided with history of cardiomyopathy and concern for overloading her. Aspiration pneumonia was suspected. Elevated troponin was seen and thought secondary to demand mismatch ischemia with no clear evidence of ACS on EKG and patient was denying chest pain. Hx of pleural effusions Will monitor with repeat imaging after treatment. Lasix stopped as noted above She got Lasix 40 mg IV yesterday and another dose of 40 mg IV this morning 07/11/2023. No evidence of significant effusion but does have CHF Malnutrition chroinc, stable. On remeron, continue Hypothyroidism chronic, stable. Continue levothyroxine GERD chronic, stable. Continue home ppi Memory loss/Dementia chronic, some increased disorientation as she is oriented only to person. Possibly some worsened confusion in the setting of known h/o dementia. Continue donepezil per home regimen. CODE STATUS: Full code Diet: easy to chew DVT prophylaxis: warfarin with therapeutic INR. Dispo: cont PCU Discussed with the daughter in detail Condition remains stable likely be discharged tomorrow to [facility] Not yet ready to be discharged Prognosis remains poor She was transferred to ICU this morning for continued care and the prognosis remains poor Admission and Anticipated Discharge Date Admission Date: July 06, 2023 Subjective 07/09/2023 The patient was seen and examined in telemetry unit in presence of the daughter She remains weak and lethargic and has been requiring 2 L to maintain saturation Minimal shortness of breath at rest Complains to have some stomach upset 07/10/2023 The patient was seen and examined in telemetry unit She has been feeling better today but still remains extremely weak and lethargic Mild shortness of breath at rest and has been requiring 6 L to maintain saturation Not yet ready to be transferred to [facility] 07/11/2023 The patient was seen and examined in telemetry unit She has been worse compared with yesterday Complains more weakness and shortness of breath even at rest No fever and or chills 07/12/2023 The patient was seen and examined in telemetry unit and later on in ICU She was noted to be very short of breath and less responsive since last night and early this morning Remains extremely weak with tachypnea but no fever and or chills Noted to be hypoxic on 10 L of oxygen through oxygen mask Discussed with the ICU doc and later on the patient was transferred to ICU for continued management 07/13/2023 The patient was seen and examined in the ICU Her condition is worse and requiring intravenous morphine frequently to keep her free from pain and agitation Remains short of breath at rest and requiring 60% FiO2 at a rate of 25 L/min 07/14/2023 The patient was seen in presence of the family members Remains stable on comfort care Physical Exam Physical Exam: Patient is not examined, below is the examination from Previous days Constitutional: + ill appearing and + thin Eyes: PERRL, conjunctivae normal, anicteric sclerae ENMT: external ear and nose normal, oropharynx normal Neck: trachea midline, no thyromegaly Respiratory: + respiratory distress (Minimal distress at rest) Au scultation: + diminished lung sounds and + crackles (Bibasilar crackles) Cardiovascular: Rate/Rhythm: regular rate and regular rhythm; not tachycardic Heart Sounds: normal S1, normal S2 and + murmur Extremities: no edema Gastrointestinal (Abdomen): Inspection/Auscultation: normal bowel sounds; abdomen not distended Percussion/Palpation: abdomen soft; abdomen nontender Lymphatic: no cervical or axillary lymphadenopathy Results & Data Results & Data Vital Signs (Past 12 Hours) Vital Signs O2 Del Method O2 Flow Rate 07/14/23 08:56 Nasal Cannula 6 (2) Aspiration pneumonia of right lung Aspiration pneumonia type: unspecified Lung location: unspecified part of lung Qualified Code(s): J69.0 - Pneumonitis due to inhalation of food and vomit
[2023-07-15] MEDS: HYDROmorphone INJ 0.5 MG/0.5 ML SYR IV PRN ×2 (04:44→11:00)
[2023-07-15] MEDS: ATROPINE SULFATE 1% OP SOLN 5 ML BTL PO SCH ×3 (13:48→22:22)
[2023-07-15] MEDS ORDERED: HYDROmorphone INJ 0.5 MG/0.5 ML SYR IV PRN (14:07)
[2023-07-15] MEDS: LORazepam 2 MG/1 ML VIAL IV PRN (14:54)
--- NOTE | 2023-07-15 15:55 | Hospitalist Progress Note ---
Date of Service July 15, 2023 Assessment & Plan (1) Acute hypoxemic respiratory failure: Plan: Comfort care status Remains stable and not in any distress Getting symptomatic medications and oxygen Family members are in the room and updated We will continue comfort measures for now Has moderate shortness of breath at rest and a little distress We will increase the dose of morphine Discussed with the family members Below is the hospital progress notes since admission: Acute respiratory failure 2/2 multifocal pneumonia Chest x-ray and CT evidence of multifocal pneumonia on admission WBC chronically elevated, procalcitonin negative, biofire completely negative, BCx negative to date Per ED provider, 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 Subsequently received 500mls of NSS in the ED. One dose of zosyn given in the ED and this was continued Given known renal complications associated wtih combination Vanc/Zosyn together, Zosyn was changed to Rocephin/flagyl Respiratory support was de-escalated from BiPAP down to oxygen Speech performed video swallow study today that revealed no evidence of aspiration. Cont abx and oxygen support Ambulate early and often! Incentive spirometer at bedside Clinically remains weak and lethargic with minimal improvement PT is performed and recommended rehab Clinically a little better,But has been requiring 6 L to maintain saturation Chest x-ray is showing cardiomegaly with mild pulmonary edema with slight improvement compared with prior. Small bilateral pleural effusions with underlying airspace opacities could be secondary to pneumonia Received another dose of Lasix 40 mg IV this morning Condition got worse last night with increasing shortness of breath and weakness with less responsiveness Received 20 mg of Lasix last evening and chest x-ray this morning did show multifocal pneumonia with evidence of congestion and received 40 mg Lasix IV as well Remains critical in ICU with worsening of her symptoms Requiring 60% FiO2 at a rate of 25 L/min to maintain saturation Appreciate input assistant producer input and recommendation-likely going towards comfort care Hx of bacteremia/ICD currently in place Last admission from 06/22 to 06/27 with noted bacteremia. ID recommended removal of ICD and she was transferred to [facility] to have procedure done. However, the procedure was deemed to risky but fortunately pt also had negative blood cultures while there. The decision was made to keep the ICD in. Repeat Blood Cx x2 are negative to date. Continue IV Vancomycin until 08/08/2023 per [facility] infectious disease. Pharmacy consulted to manage. We will continue antibiotic for pneumonia for a total of 7 to 10 days and then continue with vancomycin as planned We will continue current management (2) Aspiration pneumonia of right lung: Plan: No evidence of aspiration as per video swallow May have had an aspiration episode last night and the condition got worse Remains hypoxic even on 15 L of oxygen She was transferred to ICU for continued care (3) Elevated troponin: Plan: Demand ischemia Elevated HS troponin, no evidence of ACS. Remains chest pain-free. Repeat echo 07/06 reveals severe aortic calcification, additional valvulopathy, grade II diastolic dysfunction, pulmonary hypertension and EF 55-60%. No further inpatient work-up at this time (4) AWA (acute kidney injury): Plan: Acute kidney injury in setting of CKD Baseline creatinine is around 1.5 and today she is 2.03. She initially received 500cc NSS, and then later albumin with Lasix 60mg IV around 0430 followed by her "home" dose of Lasix 40mg PO this morning. Per home med list she takes this daily, however, on the med rec from recent hospital discharge Lasix 20mg PO daily had been discontinued. Her home med list was updated to reflect this. There is no evidence of fluid overload at this point and she is breathing better today Repeat BMP this morning with rising creatinine. Lasix stopped. Repeat BMP in am. Creatinine has been remains stable at around 2.2 Creatinine went up to 2.17 as of this morning that is 07/12/2023 Creatinine is minimally elevated at 2.43 Hypokalemia Replaced accordingly and will be monitored Potassium 3.2 and was replaced (5) Cardiomyopathy: (6) HTN (hypertension): (7) PAF (paroxysmal atrial fibrillation): Plan: PAF, NSVT, HOCM with dual chamber AICD in place Follows with Cardiology chronic, stable. Continue amiodarone, metoprolol, diltiazem and Coumadin for a fib anticoagulation INR elevated, cont holding warfarin INR remains elevated likely secondary to use of antibiotic-no evidence of bleeding Heart rate remains stable at 84 INR is 6.4 we will monitor Plan Patient is an 87-year-old female with a significant history of paroxysmal atrial fibrillation on warfarin, nonsustained V. tach, hypertrophic cardiomyopathy status post ICD placement, CKD stage III and dementia. On 06/22 she was brought to [facility] with acute onset malaise chills and vomiting and 2 days of diarrhea. She was disoriented at the time of admission and lactate was elevated. CT imaging showed splenic infarcts and possible endocarditis. 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 She was started on Zosyn and metronidazole. Blood cultures revealed MRSA with growth in 4 out of 4 bottles. Zosyn was discontinued and therapy with daptomycin was initiated. She had a significant increase in creatinine from 1.7-3.3. Daptomycin was switched to vancomycin. A DAVEY performed on 06/25 revealed no vegetations however infected ICD was suspected with further possible ICD removal recommended by ID. She was transferred to [facility] for further management on 06/26. EP, cardiology and ID were consulted. During the hospital stay it was felt that removing her ICD was too risky and her cultures ended up clearing. It was decided the best plan of care would be to continue IV vancomycin for 6 weeks. She was discharged on 07/[address] [facility]. Daughter reports that she was not out of bed much at the hospital stay and she does have some issues with swallowing and possible aspiration. Just prior to arrival she had a rapid worsening of respiratory distress requiring BiPAP. Full sepsis resuscitation was avoided with history of cardiomyopathy and concern for overloading her. Aspiration pneumonia was suspected. Elevated troponin was seen and thought secondary to demand mismatch ischemia with no clear evidence of ACS on EKG and patient was denying chest pain. Hx of pleural effusions Will monitor with repeat imaging after treatment. Lasix stopped as noted above She got Lasix 40 mg IV yesterday and another dose of 40 mg IV this morning 07/11/2023. No evidence of significant effusion but does have CHF Malnutrition chroinc, stable. On remeron, continue Hypothyroidism chronic, stable. Continue levothyroxine GERD chronic, stable. Continue home ppi Memory loss/Dementia chronic, some increased disorientation as she is oriented only to person. Possibly some worsened confusion in the setting of known h/o dementia. Continue donepezil per home regimen. CODE STATUS: Full code Diet: easy to chew DVT prophylaxis: warfarin with therapeutic INR. Dispo: cont PCU Discussed with the daughter in detail Condition remains stable likely be discharged tomorrow to [facility] Not yet ready to be discharged Prognosis remains poor She was transferred to ICU this morning for continued care and the prognosis remains poor Admission and Anticipated Discharge Date Admission Date: July 06, 2023 Subjective 07/09/2023 The patient was seen and examined in telemetry unit in presence of the daughter She remains weak and lethargic and has been requiring 2 L to maintain saturation Minimal shortness of breath at rest Complains to have some stomach upset 07/10/2023 The patient was seen and examined in telemetry unit She has been feeling better today but still remains extremely weak and lethargic Mild shortness of breath at rest and has been requiring 6 L to maintain saturation Not yet ready to be transferred to [facility] 07/11/2023 The patient was seen and examined in telemetry unit She has been worse compared with yesterday Complains more weakness and shortness of breath even at rest No fever and or chills 07/12/2023 The patient was seen and examined in telemetry unit and later on in ICU She was noted to be very short of breath and less responsive since last night and early this morning Remains extremely weak with tachypnea but no fever and or chills Noted to be hypoxic on 10 L of oxygen through oxygen mask Discussed with the ICU doc and later on the patient was transferred to ICU for continued management 07/13/2023 The patient was seen and examined in the ICU Her condition is worse and requiring intravenous morphine frequently to keep her free from pain and agitation Remains short of breath at rest and requiring 60% FiO2 at a rate of 25 L/min 07/14/2023 The patient was seen in presence of the family members Remains stable on comfort care 07/15/2023 The patient was seen and examined in medical floor in presence of the family members She is mildly short of breath at rest but no other distress noted Negative negative no examination is done Review of Systems Review of Systems: All systems reviewed and are unremarkable except as noted below Physical Exam Physical Exam: Patient is not examined, below is the examination from Previous days Constitutional: + ill appearing and + thin Eyes: PERRL, conjunctivae normal, anicteric sclerae ENMT: external ear and nose normal, oropharynx normal Neck: trachea midline, no thyromegaly Respiratory: + respiratory distress (Minimal distress at rest) Auscultation: + diminished lung sounds and + crackles (Bibasilar crackles) Cardiovascular: Rate/Rhythm: regular rate and regular rhythm; not tachycardic Heart Sounds: normal S1, normal S2 and + murmur Extremities: no edema Gastrointestinal (Abdomen): Inspection/Auscultation: normal bowel sounds; abdomen not distended Percussion/Palpation: abdomen soft; abdomen nontender Lymphatic: no cervical or axillary lymphadenopathy Results & Data Results & Data Vital Signs (Past 12 Hours) Vital Signs O2 Del Method O2 Flow Rate 07/15/23 08:00 Nasal Cannula 6 (2) Aspiration pneumonia of right lung Aspiration pneumonia type: unspecified Lung location: unspecified part of lung Qualified Code(s): J69.0 - Pneumonitis due to inhalation of food and vomit
--- NOTE | 2023-07-17 08:00 | Discharge Summary ---
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 Was recently admitted from 06/22 to 06/27 for AMS in the setting of bacteremia and was transferred to [facility] for possible removal of ICD in the setting of persistent bacteremia. However, it was determined that the procedure would be too risky and the ICD was left in place. Fortunately her blood cultures were also negative at the time and she was discharged to [facility] rehab on Jul 03 to receive IV Vancomycin for a total of 6 weeks. While there she was doing well until this AM when she became acutely SOB. She was treated with Lasix there with no improvement to her symptoms. She was then brought to the ED for further evaluation. In the ED she received a dose of Zosyn and 500ml of fluids and was placed on BiPAP for further respiratory support. Admission Exam Per Admitting Provider Physical Exam: General: Laying on the bed with bipap in place Skin: No noted rashes or bruises Psych: could not be determined Neuro: responds to stimuli HEENT: NC/AT CV: Blowing murmur appreciated Resp: no increased effort of breathing, bipap on face Abdomen:Soft, nontender, nondistended. Extremities: No edema in lower extremities bilaterally. Principal Diagnosis The patient . Causes: Acute hypoxic respiratory failure, pneumonia, AWA, cardiomyopathy, bacteremia with infection in the ICD Discharge Data Allergies Allergy/AdvReac Type Severity Reaction Status Date / Time bee venom protein (honey bee) Allergy Intermediate Hives Verified 06/22/23 17:33 alendronate sodium AdvReac Intermediate Muscle Pain Verified 06/22/23 17:33 [From Fosamax] simvastatin AdvReac Intermediate Muscle Pain Verified 06/22/23 17:33 Consultations 07/06/23 12:32 ED Decision to Admit Stat 07/12/23 08:29 Consult Benzene Washer Routine Ordered Studies 07/06/23 14:18 CT chest diagnostic w con Routine 07/08/23 10:30 Fluoro video [FL video swallow] Routine Hospital Course (1) Acute hypoxemic respiratory failure: Comfort care status Remains stable and not in any distress Getting symptomatic medications and oxygen Family members are in the room and updated We will continue comfort measures for now Has moderate shortness of breath at rest and a little distress We will increase the dose of morphine Discussed with the family members Below is the hospital progress notes since admission: Acute respiratory failure 2/2 multifocal pneumonia Chest x-ray and CT evidence of multifocal pneumonia on admission WBC chronically elevated, procalcitonin negative, biofire completely negative, BCx negative to date Per ED provider, pt received Lasix 40mg [employer] with no improvement in symptoms. Subsequently received 500mls of NSS in the ED. One dose of zosyn given in the ED and this was continued Given known renal complications associated wtih combination Vanc/Zosyn together, Zosyn was changed to Rocephin/flagyl Respiratory support was de-escalated from BiPAP down to oxygen Speech performed video swallow study today that revealed no evidence of aspiration. Cont abx and oxygen support Ambulate early and often! Incentive spirometer at bedside Clinically remains weak and lethargic with minimal improvement PT is performed and recommended rehab Clinically a little better,But has been requiring 6 L to maintain saturation Chest x-ray is showing cardiomegaly with mild pulmonary edema with slight improvement compared with prior. Small bilateral pleural effusions with underlying airspace opacities could be secondary to pneumonia Received another dose of Lasix 40 mg IV this morning Condition got worse last night with increasing shortness of breath and weakness with less responsiveness Received 20 mg of Lasix last evening and chest x-ray this morning did show multifocal pneumonia with evidence of congestion and received 40 mg Lasix IV as well Remains critical in ICU with worsening of her symptoms Requiring 60% FiO2 at a rate of 25 L/min to maintain saturation Appreciate input correctional cook input and recommendation-likely going towards comfort care Hx of bacteremia/ICD currently in place Last admission from 06/22 to 06/27 with noted bacteremia. ID recommended removal of ICD and she was transferred to [facility] to have procedure done. However, the procedure was deemed to risky but fortunately pt also had negative blood cultures while there. The decision was made to keep the ICD in. Repeat Blood Cx x2 are negative to date. Continue IV Vancomycin until 08/08/2023 per [facility] infectious disease. Pharmacy consulted to manage. We will continue antibiotic for pneumonia for a total of 7 to 10 days and then continue with vancomycin as planned We will continue current management (2) Aspiration pneumonia of right lung: No evidence of aspiration as per video swallow May have had an aspiration episode last night and the condition got worse Remains hypoxic even on 15 L of oxygen She was transferred to ICU for continued care (3) Elevated troponin: Demand ischemia Elevated HS troponin, no evidence of ACS. Remains chest pain-free. Repeat echo 07/06 reveals severe aortic calcification, additional valvulopathy, grade II diastolic dysfunction, pulmonary hypertension and EF 55-60%. No further inpatient work-up at this time (4) AWA (acute kidney injury): Acute kidney injury in setting of CKD Baseline creatinine is around 1.5 and today she is 2.03. She initially received 500cc NSS, and then later albumin with Lasix 60mg IV around 0430 followed by her "home" dose of Lasix 40mg PO this morning. Per home med list she takes this daily, however, on the med rec from recent hospital discharge Lasix 20mg PO daily had been discontinued. Her home med list was updated to reflect this. There is no evidence of fluid overload at this point and she is breathing better today Repeat BMP this morning with rising creatinine. Lasix stopped. Repeat BMP in am. Creatinine has been remains stable at around 2.2 Creatinine went up to 2.17 as of this morning that is 07/12/2023 Creatinine is minimally elevated at 2.43 Hypokalemia Replaced accordingly and will be monitored Potassium 3.2 and was replaced (5) Cardiomyopathy: (6) HTN (hypertension): (7) PAF (paroxysmal atrial fibrillation): PAF, NSVT, HOCM with dual chamber AICD in place Follows with Cardiology chronic, stable. Continue amiodarone, metoprolol, diltiazem and Coumadin for a fib anticoagulation INR elevated, cont holding warfarin INR remains elevated likely secondary to use of antibiotic-no evidence of bleeding Heart rate remains stable at 84 INR is 6.4 we will monitor Plan Patient is an 87-year-old female with a significant history of paroxysmal atrial fibrillation on warfarin, nonsustained V. tach, hypertrophic cardiomyopathy status post ICD placement, CKD stage III and dementia. On 06/22 she was brought to [facility] with acute onset malaise chills and vomiting and 2 days of diarrhea. She was disoriented at the time of admission and lactate was elevated. CT imaging showed splenic infarcts and possible endocarditis. 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 She was started on Zosyn and metronidazole. Blood cultures revealed MRSA with growth in 4 out of 4 bottles. Zosyn was discontinued and therapy with daptomycin was initiated. She had a significant increase in creatinine from 1.7-3.3. Daptomycin was switched to vancomycin. A DAVEY performed on 06/25 revealed no vegetations however infected ICD was suspected with further possible ICD removal recommended by ID. She was transferred to [facility] for further management on 06/26. EP, cardiology and ID were consulted. During the hospital stay it was felt that removing her ICD was too risky and her cultures ended up clearing. It was decided the best plan of care would be to continue IV vancomycin for 6 weeks. She was discharged on 07/03 to [facility]. Daughter reports that she was not out of bed much at the hospital stay and she does have some issues with swallowing and possible aspiration. Just prior to arrival she had a rapid worsening of respiratory distress requiring BiPAP. Full sepsis resuscitation was avoided with history of cardiomyopathy and concern for overloading her. Aspiration pneumonia was suspected. Elevated troponin was seen and thought secondary to demand mismatch ischemia with no clear evidence of ACS on EKG and patient was denying chest pain. Hx of pleural effusions Will monitor with repeat imaging after treatment. Lasix stopped as noted above She got Lasix 40 mg IV yesterday and another dose of 40 mg IV this morning 07/11/2023. No evidence of significant effusion but does have CHF Malnutrition chroinc, stable. On remeron, continue Hypothyroidism chronic, stable. Continue levothyroxine GERD chronic, stable. Continue home ppi Memory loss/Dementia chronic, some increased disorientation as she is oriented only to person. Possibly some worsened confusion in the setting of known h/o dementia. Continue donepezil per home regimen. CODE STATUS: Full code Diet: easy to chew DVT prophylaxis: warfarin with therapeutic INR. Dispo: cont PCU Discussed with the daughter in detail Condition remains stable likely be discharged tomorrow to [facility] Not yet ready to be discharged Prognosis remains poor She was transferred to ICU this morning for continued care and the prognosis remains poor Total Time Total Time Spent Total Time Spent (In Minutes): 20 minutes Discharge Plan Discharge Items Patient Disposition: Other Date/Time: 07/15/23 19:11
== END 2023-07-15 20:45 | disposition expired | DRG 177 ==
LOC: ED 11:09 → 2S 12:51 → SUATTDRO 12:51 → 2S 13:46 → 1E 07-12 09:57 → 3E 07-13 18:35